=== PATIENT | male | born 1955 | race Native Hawaiian/Other Pacific Islander ===

== ENCOUNTER → 2020-03-05 13:15 | Outpatient (BNVA) | payer OTHER, SELFPAY | PROVIDERS: PCP Internal Medicine; Visit Provider Internal Medicine | DX: I82.502 Chronic embolism and thrombosis of unspecified deep veins of left lower extremity (principal); Z51.81 Encounter for therapeutic drug level monitoring; Z79.01 Long term (current) use of anticoagulants | CPT/HCPCS: 85610; 99211 ==

== ENCOUNTER 2020-03-20 10:23 | Outpatient (REF) | payer OTHER, SELFPAY ==
[2020-03-20 12:10] LABS: MANUAL DIFF FLAG NO
[2020-03-20 12:16] LABS: Basophils Percent Auto 0.8 % (0-2); Eosinophils Absolute Auto 0.2 X10*3/uL (0.0-0.4); Eosinophils Percent Auto 3.5 % (0-4); Hematocrit 33.9 % (42-52); Hemoglobin 10.3 g/dl (14.0-18.0); Lymphocytes Absolute Auto 2.4 X10*3/uL (1.2-4.9); Lymphocytes Percent Auto 50.2 % (20-40); Mean Corpuscular HGB Conc 30.4 g/dl (31.0-36.0); Mean Corpuscular Hemoglobin 26.5 pg (27.0-33.0); Mean Corpuscular Volume 87.4 fL (80-98); Monocytes Absolute Auto 0.4 X10*3/uL (0.1-1.2); Monocytes Percent Auto 8.5 % (2-11); Neutrophils Absolute Auto 1.8 X10*3/uL (2.0-8.3); Platelet Count 196 X10*3/uL (160-400); Red Blood Count 3.88 X10*6/uL (4.60-5.80); Red Cell Distribution Width 13.7 % (11.0-16.0); White Blood Count 4.8 X10*3/uL (4.8-10.8)
[2020-03-20 12:20] LABS: Glucose Urine UA NEG (NEG); Leukocyte Esterase Urine NEG (NEG); Nitrite Urine NEG (NEG); Specific Gravity - Urine 1.025 (1.005-1.025); Urine Blood NEG (NEG); Urine Ketones NEG (NEG); Urine Protein TRACE MG/DL (NEG-TRACE)
[2020-03-20 12:21] LABS: Appearance Urine CLEAR; Color Urine YELLOW
[2020-03-20 12:27] LABS: RBC Urine 0 /HPF (0); Squamous Epithelial Cell Urine TRACE /LPF; WBC Urine 0-2 /HPF (0-4)
[2020-03-20 12:36] LABS: Estimated Average Glucose 143 mg/dL; Hemoglobin A1c % 6.6 %
[2020-03-20 12:49] LABS: Alanine Aminotransferase 21 U/L (0-40); Albumin Level 3.9 g/dL (3.5-5.0); Alkaline Phosphatase 74 U/L (39-117); Anion Gap 11 (12-20); Aspartate Amino Transferase 25 U/L (5-37); Bilirubin Total 0.5 mg/dL (0.0-1.0); Blood Urea Nitrogen 38 mg/dL (9-16); Calcium 8.5 mg/dL (8.4-10.2); Carbon Dioxide 25 mmol/L (22-29); Chloride 108 mmol/L (96-108); Estimated Glomerular Filt Rate 37; Glucose Random 109 mg/dL (60-115); Sodium 139 mmol/L (135-145); Total Protein 6.8 g/dL (6.5-8.0)
[2020-03-20 12:50] LABS: Cholesterol 100 mg/dL; HDL Cholesterol 41 mg/dL; LDL Cholesterol Calculated 37 mg/dl; Triglycerides 112 mg/dL
[2020-03-20 12:55] LABS: Thyroid Stimulating Hormone 1.01 mIU/mL (0.32-4.0)
[2020-03-20 13:00] LABS: Erythrocyte Sedimentation Rate 18 MM/HR (0-15)
[2020-03-20 13:13] LABS: Folate 6.3 ng/mL (> or = 4.0); Vitamin B12 306 pg/mL (200-900)
== END 2020-03-20 10:24 | disposition home or self-care (01) ==
LOC: HO.LAB 10:23
PROVIDERS: PCP Internal Medicine; Visit Provider Internal Medicine
DX: I25.10 Atherosclerotic heart disease of native coronary artery without angina pectoris (principal); E78.00 Pure hypercholesterolemia, unspecified; I10 Essential (primary) hypertension; K21.9 Gastro-esophageal reflux disease without esophagitis; D63.8 Anemia in other chronic diseases classified elsewhere; F03.90 Unspecified dementia, unspecified severity, without behavioral disturbance, psychotic disturbance, mood disturbance, and anxiety; G47.33 Obstructive sleep apnea (adult) (pediatric); I82.409 Acute embolism and thrombosis of unspecified deep veins of unspecified lower extremity; F41.9 Anxiety disorder, unspecified; F09 Unspecified mental disorder due to known physiological condition
CPT/HCPCS: 36415; 80053; 80061; 81001; 82607; 82746; 83036; 84436; 84443; 85025; 85652

== ENCOUNTER 2020-04-09 08:35 | Outpatient (REF) | payer OTHER, SELFPAY ==
[2020-04-09 10:40] LABS: Anion Gap 11 (12-20); Blood Urea Nitrogen 28 mg/dL (9-16); Calcium 8.3 mg/dL (8.4-10.2); Carbon Dioxide 28 mmol/L (22-29); Chloride 110 mmol/L (96-108); Estimated Glomerular Filt Rate 44; Glucose Random 102 mg/dL (60-115); Potassium 4.9 mmol/l (3.3-5.1); Sodium 144 mmol/L (135-145)
== END 2020-04-09 08:36 | disposition home or self-care (01) ==
LOC: HO.LAB 08:35
PROVIDERS: PCP Internal Medicine; Visit Provider Internal Medicine
DX: N17.9 Acute kidney failure, unspecified (principal); E78.00 Pure hypercholesterolemia, unspecified; I10 Essential (primary) hypertension; I25.10 Atherosclerotic heart disease of native coronary artery without angina pectoris
CPT/HCPCS: 80048; 85610; 99211

== ENCOUNTER → 2020-05-07 09:14 | Outpatient (BNVA) | payer OTHER, SELFPAY | PROVIDERS: PCP Internal Medicine; Visit Provider Internal Medicine | DX: I82.502 Chronic embolism and thrombosis of unspecified deep veins of left lower extremity (principal); Z51.81 Encounter for therapeutic drug level monitoring; Z79.01 Long term (current) use of anticoagulants | CPT/HCPCS: 85610; 99211 ==

== ENCOUNTER → 2020-06-10 08:40 | Outpatient (BNVA) | payer OTHER, SELFPAY | PROVIDERS: PCP Internal Medicine; Visit Provider Internal Medicine | DX: I82.502 Chronic embolism and thrombosis of unspecified deep veins of left lower extremity (principal); Z79.01 Long term (current) use of anticoagulants; Z51.81 Encounter for therapeutic drug level monitoring | CPT/HCPCS: 85610; 99211 ==

== ENCOUNTER → 2020-06-29 12:56 | Outpatient (BNVA) | payer OTHER, SELFPAY | PROVIDERS: PCP Internal Medicine; Visit Provider Internal Medicine Gastroenterology | DX: Z13.89 Encounter for screening for other disorder (principal) | CPT/HCPCS: 99202 ==

== ENCOUNTER → 2020-07-08 09:11 | Outpatient (BNVA) | payer OTHER, SELFPAY | PROVIDERS: PCP Internal Medicine; Visit Provider Internal Medicine | DX: I82.501 Chronic embolism and thrombosis of unspecified deep veins of right lower extremity (principal); Z51.81 Encounter for therapeutic drug level monitoring; Z79.01 Long term (current) use of anticoagulants | CPT/HCPCS: 85610; 99211 ==

== ENCOUNTER → 2020-07-09 11:14 | Outpatient (BNVA) | payer OTHER, SELFPAY | PROVIDERS: PCP Internal Medicine; Visit Provider Nurse Practitioner Family | DX: I25.10 Atherosclerotic heart disease of native coronary artery without angina pectoris (principal); I10 Essential (primary) hypertension; R07.9 Chest pain, unspecified; I73.9 Peripheral vascular disease, unspecified; M79.606 Pain in leg, unspecified; M79.89 Other specified soft tissue disorders; E78.00 Pure hypercholesterolemia, unspecified; R00.1 Bradycardia, unspecified; Z86.718 Personal history of other venous thrombosis and embolism; I25.2 Old myocardial infarction; Z79.01 Long term (current) use of anticoagulants; Z79.899 Other long term (current) drug therapy | CPT/HCPCS: 93005; 99202 ==

== ENCOUNTER → 2020-07-23 09:07 | Outpatient (REF) | payer OTHER, SELFPAY ==
--- NOTE | ~2020-07-23 | NM_ITS ---
Lexiscan Myocardial perfusion study Indication: Coronary artery disease, assess for ischemia Technique: The patient was brought in for a Lexiscan perfusion study on 07/23/2020 and was injected 0.4 mg of Lexiscan intravenously. Within a minute of this injection 40 mCi of sestamibi was given intravenously. Images were obtained using the SPECT gamma camera interlaced with the gating device. Images were obtained in supine position. Resting perfusion study was performed on 07/27/2020. Patient was administered 40 mCi of sestamibi intravenously at rest. Images were then obtained in supine position. Total DLP 130mGy-cm. Images were processed with the software and compared side to side in short axis, horizontal long axis and vertical long axis views. Findings: Raw acquisition was reviewed. The stress perfusion study showed diminished tracer uptake along the inferior wall. However, with CT attenuation correction, this normalizes completely and hence suggestive of diaphragmatic attenuation artifact. The gated study shows normal LV systolic function with calculated LVEF of 72%. LV cavity is normal in size. The gated study shows normal wall thickening and contraction of segments. Resting study shows diminished tracer uptake along the inferior wall that improves with CT attenuation correction. Gating at rest reveals normal wall motion with ejection fraction at 64%. The findings are consistent with no reversible defects. Fixed defect along the inferior wall likely from diaphragmatic attenuation artifact. NM/NM chasidy perf SPECT rest & str Impression: 1. Myocardial perfusion imaging study shows no evidence of ischemia. Fixed defect along the inferior wall suspected to be from diaphragmatic artifact. 2. Gated LVEF is 72% during stress; 71% during rest. 3. Transient ischemic dilatation not present. EKG component of the test reported separately.
--- NOTE | 2020-07-23 09:11 | CA_ITS ---
Acquisition Time: 2020-07-23 10:09:59 Total Exercise Time: 00:02:00 Test Indications: CP Medications: SEE CHART Protocol: LEXISCAN Max HR: 118 BPM 75% of Pred: 156 BPM Max BP: 124/084 mmHG Max Work Load: 1.0 METS Pharmacological stress test using Lexiscan while lying and moving his L arm. Pt. is very sleapy spoke with his daughter and she states that this is his norm. Pt has a hx of dementia and parkinson's took clonazepam this morning. Pt denies any anginal sx. EKG with no arrhythmias, non-diagnostic for ischemia. Nuclear images to follow. Normotensive response to rest. Test reviewed with Dr. Johns. Referred By: Bhavya Roche Overread By: Juan Alberto Armstrong
== END ==
LOC: HO.CARD 09:07
PROVIDERS: Visit Provider Nurse Practitioner Family
DX: R07.9 Chest pain, unspecified (principal); I25.10 Atherosclerotic heart disease of native coronary artery without angina pectoris
CPT/HCPCS: 78452; 93017; A9500; J0280; J2785

== ENCOUNTER 2020-07-27 09:00 | Outpatient (REF) | payer OTHER, SELFPAY ==
--- NOTE | ~2020-07-27 | US_ITS ---
EXAMINATION: RIGHT and LEFT LOWER EXTREMITY VENOUS ULTRASOUND (Reflux Exam) CLINICAL INDICATION: leg pain and varicose veins. COMPARISON: Previous right lower extremity ultrasound April 2018 TECHNIQUE: Color flow triplex imaging and compression Doppler was performed to evaluate both the deep and the superficial systems bilaterally. To evaluate the superficial system, the examination was performed in the upright position. Color-flow Doppler ultrasound and compression ultrasound were utilized. In addition, maneuvers were utilized to demonstrate reflux. FINDINGS: 1. DEEP VENOUS ULTRASOUND OF THE RIGHT LOWER EXTREMITY: Respiratory variation, normal compression and augmented flow are noted in the right common femoral vein as well as the right popliteal vein and there is no evidence of acute deep venous thrombosis at these locations. There is some echogenic material and wall thickening and limited compression of the right popliteal vein questionable for changes related to old DVT. There is a 0.8 seconds reflux in the right popliteal vein. There is no evidence of Evidence of reflux in the deep system in either the common femoral vein or the mid femoral vein. There is no evidence of a Romero's cyst. 2. SUPERFICIAL ULTRASOUND WITH DOPPLER OF RIGHT LOWER EXTREMITY: The right great saphenous vein at the saphenofemoral junction measures 7 mm, at the mid thigh 3 mm, lquka-jdc-zose 4 mm, irvzz-vab-juju 4 mm, at mid calf 3 mm and at the ankle measures 3 mm. There is no reflux demonstrated in the right great saphenous vein. The right small saphenous vein measures 2 mm and demonstrates 0.4 seconds reflux at the saphenofemoral popliteal junction. There is a electronics repair technician in the calf that measures 1 mm and does not demonstrate reflux. There are varicosities in the calf measuring 2 to 3 mm the do not demonstrate reflux. 3. DEEP VENOUS ULTRASOUND OF THE LEFT LOWER EXTREMITY: Respiratory variation, normal compression and augmented flow are noted in the left common femoral vein as well as the left popliteal vein and there is no evidence of deep venous thrombosis at these locations. There is no evidence of reflux in the deep system in either the common femoral vein or the popliteal vein. . There is no evidence of a Romero's cyst. 4. SUPERFICIAL ULTRASOUND WITH DOPPLER OF LEFT LOWER EXTREMITY: Left great saphenous vein at the saphenofemoral junction measures 6 mm, at the mid thigh 3 mm, yktwe-fzy-lzyg 3 mm, huoli-ecd-laef 3 mm, at mid calf 3 mm and at the ankle measures 3 mm. There is no reflux demonstrated in the left great saphenous vein. The left small saphenous vein measures 3-5 mm and shows no reflux. There is a varicose vein measuring 3 mm in the proximal calf that does not demonstrate reflux. US/US venous duplex LE BI IMPRESSION: 1. No evidence of acute DVT. Probable changes from old DVT in the right popliteal vein and 0.8 second reflux. 2. Right lesser saphenous vein at the saphenofemoral junction measuring 0.4 seconds.
--- NOTE | ~2020-07-27 | US_ITS ---
EXAMINATION: COLOR-FLOW DUPLEX IMAGING OF THE BILATERAL LOWER EXTREMITY ARTERIAL SYSTEM. VELOCITY MEASUREMENTS THROUGHOUT THE FEMORAL ARTERIES WITH ANKLE-BRACHIAL PERIPHERAL ARTERIAL TESTING. CLINICAL INFORMATION: This is a 65-year-old male with bilateral peripheral vascular disease. COMPARISON: None. Interventional Radiologist: Jared Stiles M.D., F.S.I.R., F.A.C.R. RIGHT FEMORAL RUNOFF VELOCITIES: The right common femoral artery measures 109 cm/s and triphasic. The right profunda femoral artery is 56 cm/s and is triphasic. Right proximal superficial femoral artery measures 77 cm/s and triphasic. Mid superficial femoral artery is 69 cm/s and triphasic. Distal right superficial femoral artery measures 53 cm/s and is triphasic. Right popliteal velocity measures 42 cm/s and is triphasic. The posterior tibial artery velocity measures 98 cm/s and was triphasic. LEFT FEMORAL RUNOFF VELOCITIES: The left common femoral artery measures 106 cm/s and triphasic. The left profunda femoral artery is 48 cm/s and is triphasic. Left proximal superficial femoral artery measures 76 cm/s and triphasic. Mid superficial femoral artery is 53 cm/s and triphasic. Distal left superficial femoral artery measures 48 cm/s and is triphasic. Left popliteal velocity measures 45 cm/s and is triphasic. The posterior tibial artery velocity measures 74 cm/s and was triphasic. US/US arterial duplex LE BI IMPRESSION: 1. Normal peripheral arterial testing without evidence of hemodynamically significant stenosis.
== END 2020-07-27 09:01 | disposition home or self-care (01) ==
LOC: HO.US 09:00
PROVIDERS: Visit Provider Nurse Practitioner Family
DX: M79.609 Pain in unspecified limb (principal); I73.9 Peripheral vascular disease, unspecified; M79.89 Other specified soft tissue disorders
CPT/HCPCS: 93925; 93970

== ENCOUNTER → 2020-08-05 09:11 | Outpatient (BNVA) | payer OTHER, SELFPAY | PROVIDERS: PCP Internal Medicine; Visit Provider Internal Medicine | DX: I82.409 Acute embolism and thrombosis of unspecified deep veins of unspecified lower extremity (principal); Z51.81 Encounter for therapeutic drug level monitoring; Z79.01 Long term (current) use of anticoagulants | CPT/HCPCS: 85610; 99211 ==

== ENCOUNTER → 2020-08-19 08:29 | Outpatient (REF) | payer OTHER, SELFPAY ==
--- NOTE | 2020-08-19 08:31 | CA_ITS ---
Transthoracic Echocardiogram Patient (Last, First, Middle): Lokesh Ravi E Gender: Male Date of : 1955 Age: 65 Procedure Date: 08/19/2020 Procedure Type: Transthoracic Echocardiogram Location: OP Height: 175.26 cm Weight: 116.12 kg BSA: 2.29 m2 Heart Rate: bpm BP: 144 / 77 mmHg Aviation Program Manager: UMER Referring MD: Bhavya Roche ERP PMLuis Daniel Community Artist: Arthur Travis MD Symptoms: I25.10 - Atherosclerotic heart disease of [place] coronary artery without angina pectoris Study Quality: Good ECG Rhythm: Sinus Conclusions: - 1. Normal LV systolic and diastolic function 2. Normal cardiac valvular Doppler 3. Normal RV systolic pressure 4. No pericardial effusion Findings Left Ventricle Normal left ventricular size, thickness, and systolic function. The visually estimated ejection fraction is between 60-65%. Diastolic function is normal for age. Right Ventricle Normal right ventricular cavity size and systolic function. Atria Both atria are normal in size. There is no evidence of interatrial shunt. Aortic Valve The aortic valve structure and function is likely normal. There is no aortic valve stenosis. There is no aortic valve regurgitation. Mitral Valve Normal mitral valve structure and function. There is trace mitral valve regurgitation. There is no mitral valve stenosis. Pulmonic Valve The pulmonic valve is likely normal. There is trace pulmonic valve regurgitation. Tricuspid Valve Normal tricuspid valve structure. There is mild tricuspid valve regurgitation. The right ventricular systolic pressure is normal. The right ventricular systolic pressure is 34 mmHg. Normal right atrial pressure. There is no evidence of pulmonary hypertension. Great Vessels All visible segments of the aorta are normal in size. The pulmonary artery was not well visualized. Venous The inferior vena cava is normal in size and collapses greater than 50% with inspiration. Pericardium/Pleural There is no evidence of pericardial effusion. Prior Study Comparison No prior study available for comparison. Measurements 2D Linear Measurements IVSd: 1.07 0.6-0.9/0.6-1.0 cm LVIDd: 5.47 3.9-5.3/4.2-5.9 cm LVIDd Index: 2.39 2.4-3.2/2.2-3.1 cm/m2 LVIDs: 3.18 2.0-3.6 cm LVPWd: 1.02 0.7-1.1 cm Ao Root: 3.00 2.1-3.5 cm LA Diam: 4.40 2.7-3.8/3.0-4.0 cm LAIDs Index: 1.92 1.5-2.3 cm/m2 LV Mass: 279.15 67-162/88-224 g LV Mass Index: 121.90 43-95/49-115 g/m2 LVOT Diam: 2.20 3.0+(-)1.3 cm 2D Systolic Function EF 4C: 64.50 >55% EF 2C: 60.80 >55% EF BiP: 62.80 >55% Mitral Valve MV Pk E: 0.96 MV PK A: 0.67 MV Decel Time: 171.00 E/A: 1.40 E'Lateral: 13.10 E'Medial: 7.72 E/E' Med: 12.40 E/E' Lat: 7.30 PHT: 50.00 MVA PHT: 4.40 Decel [place]: 5.58 Aortic Valve AoV Pk Aman: 1.76 AoV Pk Grad: 12.00 LVOT LVOT Pk Aman: 1.17 LVOT Mn Aman: 0.76 LVOT VTI: 0.25 LVOT Pk Grad: 5.00 LVOT Mn Grad: 3.00 LVOT Diam: 2.20 LVOT Area: 3.80 Diastolic Function MV Pk E: 0.96 MV Pk A: 0.67 E/A: 1.40 E'Medial: 7.72 E/E' Med: 12.40 E' Laterial: 13.10 E/E' Lat: 7.30 Tricuspid Valve TR Pk Aman: 2.77 TR Pk Grad: 31.00 RA Press: 3.00 RVSP: 34.00 Great Vessels Aorta Ao Root-2D: 3.00 2.0-3.7 cm Ao Asc: 3.50 2.1-3.4 cm Updated in Other Vendor System with Status of Final Arthur Travis MD electronically signed on 08/19/2020 6:16:06 PM with status of Final
== END ==
LOC: HO.CARD 08:29
PROVIDERS: Visit Provider Nurse Practitioner Family
DX: R07.9 Chest pain, unspecified (principal); I25.10 Atherosclerotic heart disease of native coronary artery without angina pectoris
CPT/HCPCS: 93306

== ENCOUNTER → 2020-08-25 12:28 | Outpatient (BNVA) | payer OTHER, SELFPAY | PROVIDERS: PCP Internal Medicine; Visit Provider Nurse Practitioner Family | DX: Z01.810 Encounter for preprocedural cardiovascular examination (principal); R07.9 Chest pain, unspecified; I25.10 Atherosclerotic heart disease of native coronary artery without angina pectoris; I73.9 Peripheral vascular disease, unspecified; I10 Essential (primary) hypertension; E78.00 Pure hypercholesterolemia, unspecified; R00.1 Bradycardia, unspecified; Z79.01 Long term (current) use of anticoagulants; Z86.718 Personal history of other venous thrombosis and embolism; Z79.899 Other long term (current) drug therapy | CPT/HCPCS: 99212 ==

== ENCOUNTER 2020-12-14 10:32 | Day surgery (SDC) | payer OTHER, SELFPAY ==
[2020-11-13 08:38] VITALS: BMI 37.0
--- NOTE | 2020-11-16 10:48 | HO.ANESPROP2 ---
HPI - Anesthesia Eval Consult details Narrative: 65yo M for Upper Endoscopy and Colonoscopy Cardiac cleared at low to intermed Coumadin for h/o DVT PMFSH Active Problems Active Problems: All Active Problems (Updated 11/13/20 @ 08:36 by Bina Mead) Current use of anticoagulant therapy (Acute) Acute kidney injury (Acute) Anemia in chronic kidney disease (Acute) History of DVT (deep vein thrombosis) (Acute) Constipation (Acute) Peripheral vascular disease (Acute) Leg pain (Acute) Leg swelling (Acute) Exertional chest pain (Acute) Sinus bradycardia (Acute) Preop cardiovascular exam (Acute) Type 2 diabetes mellitus with hyperglycemia (Acute) Confusion (Acute) Rectal bleeding (Acute) Anticoagulant long-term use (Acute) Hypertension (Acute) Hypercholesterolemia (Acute) Coronary artery disease (Acute) Past Medical History Medical History (Updated 11/13/20 @ 08:36 by Bina Mead) Anemia Anticoagulant long-term use Cognitive impairment Confusion Coronary artery disease History of renal calculi Hypercholesterolemia Hypertension Lumbar spondylosis Obstructive sleep apnea Polysubstance abuse Rectal bleeding Right leg DVT Family History Family History Father No problems noted. Mother Hypertension Stroke Diabetes Family/Other No problems noted. Surgical History Surgical History (Updated 11/13/20 @ 08:35 by Bina Mead) H/O colonoscopy History of cardiac cath (~06/2009) History of hand surgery Hx of cystoscopy Hx of lithotripsy Social History Social History (Updated 09/24/20 @ 13:13 by Krista Espinal) Alcohol intake: former Patient Tobacco Use Status: Former Tobacco user Substance Use Type: Heroin Advance Directives Information Provided: No Meds Allergies Allergy/AdvReac Type Severity Reaction Status Date / Time lisinopril AdvReac Intermediate high Verified 07/08/20 09:12 creatinine Home Medications Medication Instructions Recorded Confirmed Last Taken Type dextromethorphan-guaifenesin 10 10 ml PO Q4-6H PRN 04/01/20 11/13/20 Unknown History mg-100 mg/5 mL oral liquid clonidine HCl 0.1 mg tablet 0.1 mg PO BID 08/05/20 11/13/20 Unknown History lisinopril 40 mg tablet 40 mg PO DAILY 08/05/20 11/13/20 Unknown History Exam Exam Date and Time: November 16, 2020 1048 Height,Weight and Vital Signs: Height 5 ft 9 in Weight 114 kg Pertinent Lab Results Pertinent Lab Results: Laboratory Tests 09/24/20 09/24/20 13:32 13:32 WBC 4.4 L Hgb 12.2 L Hct 40.1 L Plt Count 189 Sodium 143 Potassium 4.7 Chloride 112 H Carbon Dioxide 25 BUN 18 H Creatinine 1.31 Narrative Narrative: Per cardiac clearance: EKG last visit shows sinus bradycardia with no acute ST or T-wave abnormalities, rate 45.His Metoprolol dose was reduced. Symptoms seem like stable angina. He had a nuclear stress test on 07/23/20 showing no ischemia, fixed inferior defect, likely diaphragm attenuation. Echo 08/19/20 shows EF 60-65%, no valve abn, no regional WMA. Assessment and Plan Assessment Anesthesia Assessment: Chart Reviewed
--- NOTE | 2020-12-11 08:41 | HO.ANESPROP2 ---
HPI - Anesthesia Eval Consult details Narrative: 65yo M for Upper Endoscopy and Colonoscopy Cardiac cleared at low to intermed Coumadin for h/o DVT PMFSH Active Problems Active Problems: All Active Problems (Updated 11/13/20 @ 08:36 by Bina Mead) Current use of anticoagulant therapy (Acute) Acute kidney injury (Acute) Anemia in chronic kidney disease (Acute) History of DVT (deep vein thrombosis) (Acute) Constipation (Acute) Peripheral vascular disease (Acute) Leg pain (Acute) Leg swelling (Acute) Exertional chest pain (Acute) Sinus bradycardia (Acute) Preop cardiovascular exam (Acute) Type 2 diabetes mellitus with hyperglycemia (Acute) Confusion (Acute) Rectal bleeding (Acute) Anticoagulant long-term use (Acute) Hypertension (Acute) Hypercholesterolemia (Acute) Coronary artery disease (Acute) Past Medical History Medical History Anemia Anticoagulant long-term use Cognitive impairment Confusion Coronary artery disease History of renal calculi Hypercholesterolemia Hypertension Lumbar spondylosis Obstructive sleep apnea Polysubstance abuse Rectal bleeding Right leg DVT Family History Family History Father No problems noted. Mother Hypertension Stroke Diabetes Family/Other No problems noted. Surgical History Surgical History H/O colonoscopy History of cardiac cath (~06/2009) History of hand surgery Hx of cystoscopy Hx of lithotripsy Social History Social History Alcohol intake: former Patient Tobacco Use Status: Former Tobacco user Substance Use Type: Heroin Advance Directives Information Provided: No Meds Allergies Allergy/AdvReac Type Severity Reaction Status Date / Time lisinopril AdvReac Intermediate high Verified 07/08/20 09:12 creatinine Home Medications Medication Instructions Recorded Confirmed Last Taken Type dextromethorphan-guaifenesin 10 10 ml PO Q4-6H PRN 04/01/20 11/13/20 Unknown History mg-100 mg/5 mL oral liquid clonidine HCl 0.1 mg tablet 0.1 mg PO BID 08/05/20 11/13/20 12/14/20 07:30 History lisinopril 40 mg tablet 40 mg PO DAILY 08/05/20 11/13/20 Unknown History Exam Exam Date and Time: December 11, 2020 0841 Height,Weight and Vital Signs: Height 5 ft 9 in Weight 114 kg Narrative Narrative: Per cardiac clearance: EKG last visit shows sinus bradycardia with no acute ST or T-wave abnormalities, rate 45. His Metoprolol dose was reduced. Symptoms seem like stable angina. He had a nuclear stress test on 07/23/20 showing no ischemia, fixed inferior defect, likely diaphragm attenuation. Echo 08/19/20 shows EF 60-65%, no valve abn, no regional WMA. Assessment and Plan Assessment Anesthesia Assessment: Chart Reviewed
--- NOTE | 2020-12-14 10:49 | PC.NURSE ---
called lab for draw and no answer
[2020-12-14 10:53] VITALS: BP 140/76; PULSE 83; RESP 16; TEMP 37.2; O2SAT 92
--- NOTE | 2020-12-14 11:33 | PC.NURSE ---
P[employer]TER USED FOR FLEET ENEMA INSTRUCIOTNS. LAYING ON LEFT SIDE RAFAELA PROCEDURE WELL. OUTPUT WAS BRITTON, NO SOLIDS UNABLE TO SEE THROUGH.
--- NOTE | 2020-12-14 11:43 | P.CONAN_ITS ---
[facility] Active Problems Active Problems: All Active Problems (Updated 11/13/20 @ 08:36 by Bina sharma) Current use of anticoagulant therapy (Acute) Acute kidney injury (Acute) Anemia in chronic kidney disease (Acute) History of DVT (deep vein thrombosis) (Acute) Constipation (Acute) Peripheral vascular disease (Acute) Leg pain (Acute) Leg swelling (Acute) Exertional chest pain (Acute) Sinus bradycardia (Acute) Preop cardiovascular exam (Acute) Type 2 diabetes mellitus with hyperglycemia (Acute) Confusion (Acute) Rectal bleeding (Acute) Anticoagulant long-term use (Acute) Hypertension (Acute) Hypercholesterolemia (Acute) Coronary artery disease (Acute) Past Medical History Medical History Anemia Anticoagulant long-term use Cognitive impairment Confusion Coronary artery disease History of renal calculi Hypercholesterolemia Hypertension Lumbar spondylosis Obstructive sleep apnea Polysubstance abuse Rectal bleeding Right leg DVT Family History Family History Father No problems noted. Mother Hypertension Stroke Diabetes Family/Other No problems noted. Surgical History Surgical History H/O colonoscopy History of cardiac cath (~06/2009) History of hand surgery Hx of cystoscopy Hx of lithotripsy Social History Social History Alcohol intake: former Patient Tobacco Use Status: Former Tobacco user Substance Use Type: Heroin Advance Directives Information Provided: No Meds Allergies Allergy/AdvReac Type Severity Reaction Status Date / Time lisinopril AdvReac Intermediate high Verified 07/08/20 09:12 creatinine Active Medications: Current Medications Generic Name Dose Route Start Last Admin Trade Name Freq PRN Reason Stop Dose Admin Lactated Ringer's 1,000 mls @ 100 mls/hr 12/14/20 10:30 Lr IVCONT .Q10H [facility] Home Medications Medication Instructions Recorded Confirmed Last Taken Type dextromethorphan-guaifenesin 10 10 ml PO Q4-6H PRN 04/01/20 11/13/20 Unknown History mg-100 mg/5 mL oral liquid clonidine HCl 0.1 mg tablet 0.1 mg PO BID 08/05/20 11/13/2021 07:30 History lisinopril 40 mg tablet 40 mg PO DAILY 08/05/20 11/13/20 Unknown History Exam Exam Date and Time: December 14, 2020 1143 Height,Weight and Vital Signs: Height 5 ft 9 in Weight 114 kg Last Vital Signs Temp 99.0 F 12/14/20 10:53 Pulse 83 12/14/20 10:53 Resp 16 12/14/20 10:53 BP 140/76 H 12/14/20 10:53 Pulse Ox 92 12/14/20 10:53 Airway Mallampati Class: IV TM Dist: >3cm Neck ROM: Full Denture: Upper Heart: RRR Lungs: CTA
[2020-12-14 11:47] LABS: Glucose, Whole Blood 97 mg/dL (60-115)
[2020-12-14] MEDS: Sodium Phosphate,Mono-Dibasic 133 ML ENEMA 266 ML PR (12:00)
--- NOTE | 2020-12-14 12:02 | P.BOP_ITS ---
Brief Operative Note Date of Service: 12/14/20 Pre-op diagnosis: Anemia, rectal bleeding Post-op diagnosis: other (GERD, hiatal hernia, polyp hiatal hernia sac, gastritis, gastric nodules, colon polyps, diverticulosis, hemorrhoids) Procedure: FLEXIBLE TRANSORAL UPPER GASTROINTESTINAL ENDOSCOPY AND COLONOSCOPY PROCEDURE NOTE UPPER ENDOSCOPY Consent: Indications for the procedure and potential complications of bleeding, perforation, reaction to medications and missed diagnosis were discussed with the patient and informed consent was obtained. Instrument: Olympus GIF H 190 mid size upper endoscope Monitoring: Vital signs and clinical assessment, continuous EKG monitoring, Pulse oximetry, Carbon Dioxide monitoring and blood pressure monitoring were done throughout the procedure. Procedure: The patient was placed in the left lateral decubitis position and pre-procedure medications were administered and a bite block was placed. The endoscope was inserted into the mouth and advanced under direct vision to the third part of duodenum. A careful inspection was made as the upper endoscope was withdrawn including a retroflexed examination of the proximal stomach; Findings and interventions are described below. Findings: Larynx: Normal Esophagus: GE junction at 35 cms, hiatl hernia 35 to 40 cms. A 2 cms hemorrhagic appearing polyp with surface ulcerations in hiatal hernia sac removed piece meal with a hot snare and retrieved with a Fenton net. No esophagitis. Stomach: Moderate diffuse gastric erythema. Biopsies were obtained. Multiple 8- 12 mm benign appearing nodules in the gastric antrum - some with central ulcerations - biopsied. Grade 4 flap valve on retroflexed examination of the cardia. Duodenum: Normal bulb and descending duodenum Intervention: Biopsies as noted above COLONOSCOPY PROCEDURE NOTE Consent: Indications for the procedure and potential complications of bleeding, perforation, reaction to medications and missed diagnosis were discussed with the patient and informed consent was obtained. Instrument: Olympus CF [id number] L variable stiffness adult colonoscope Monitoring: Vital signs and clinical assessment, intermittent blood pressure monitoring, continuous EKG monitoring, Pulse oximetry and Carbon Dioxide monitoring were done throughout the procedure. Colon withdrawl time was 27 minutes. Procedure: The patient was placed in the left lateral decubitis position and pre-procedure medications were administered. After a digital rectal examination of the ano-rectum, the video colonoscope was inserted into the rectum and advanced through the colon to the cecum. The colonoscope was slowly withdrawn in a retrograde panoramic fashion and the colon mucosa was carefully examined including a retroflexed view of the rectum. Findings and interventions are described below. Procedure Difficulty: : Colon was long and tortuous and there was spasm and loop formation. LLQ pressure was applied to intubate the cecum Findings: Terminal Ileum: Not evaluated Cecum: Normal Ascending Colon: A 12-15 mm sessile polyp removed with a hot snare Transverse Colon: A 10 mm sessile polyp removed with a cold snare Descending Colon: Moderate diverticulosis Sigmoid Colon: Moderate diverticulosis Rectum: Normal Ano-rectum: Moderate internal hemorrhoids Colon preparation: Fair despite copious irrigation Impression and Post Procedure Diagnosis: Endoscopy Findings: ESOPHAGUS: GE junction at 35 cms, hiatl hernia 35 to 40 cms. A 2 cms hemorrhagic appearing polyp with surface ulcerations in hiatal hernia sac removed piece meal with a hot snare and retrieved with a Fenton net. No esophagitis. STOMACH: Moderate diffuse gastric erythema. Biopsies were obtained. Multiple 8- 12 mm benign appearing nodules in the gastric antrum - some with central ulcerations - biopsied. Grade 4 flap valve on retroflexed examination of the cardia. Colonoscopy Findings: Two medium sized polyps removed Moderate diverticulosis seen in the left colon Moderate hemorrhoids on retroflexed exam. Anemia may be related to slow GI blood loss from large polyp in hiatal hernia sac. Plan: Await pathology results Patient has an appointment on 01/01/21 in the GI Clinic with Patti Jerry FNP- BC . Repeat Colonoscopy interval based on path results - in 1-2 years due to fair prep (adult colonoscope for future colonoscopies). Above findings were reviewed with the patient and GERD and colon polyps handouts were given in the discharge area Surgeon: Gage Jimenez MD Anesthesia: MAC (Dr Okeefe & Dr Diego) Was an Grinding Supervisor used for this Procedure?: No Grinding Supervisor: Lei Hinojosa Estimated blood loss (mL): 0 Pathology: other (A- GASTRIC NODULES B- GASTRIC ANTRUM BXS R/O H. PYLORI C- HIATAL HERNIA POLYP D- ASCENDING COLON POLYP E- TRANSVERSE COLON POLYP) Condition: stable Disposition: PACU
--- NOTE | 2020-12-14 12:04 | PC.NURSE ---
PATIENT HAD A SECOND FLEET ENEMA PER MD COOK. RAFAELA PROCEDURE WELL.
--- NOTE | 2020-12-14 12:04 | MHC.SHP ---
Pre-Procedural Eval Section A Date of Service: 12/14/20 The patient is an INPATIENT: No The History & Physical has been completed within 30 days and I have reviewed it.: No Section B Chief Complaint: Rectal Bleeding Details of Present Illness: Anemia, rectal bleeding Relevant Family History (Specify if Yes): No Relevant Social History: None Present Medications: see Short Stay Collaborative assessment Medical History: Significant History (Anemia Anticoagulant long-term use Cognitive impairment Confusion Coronary artery disease History of renal calculi Hypercholesterolemia Hypertension Lumbar spondylosis Obstructive sleep apnea Polysubstance abuse Rectal bleeding Right leg DVT) History of Previous Operations: Relevant previous surgery/procedure and date(s) (History of hand surgery) Allergies: Allergies Allergy/AdvReac Type Severity Reaction Status Date / Time lisinopril AdvReac Intermediate high Verified 07/08/20 09:12 creatinine Review of Systems Sugical H&P ROS: Negative: Constitution, Cardiovascular and Respiratory and Yes, Specify: Gastrointestinal (rectal bleeding) Exam Surgical H&P Exam: Normal: Heart, Normal: Lungs, Normal: Extremities and Normal: Abdomen Plan Diagnosis/Plan: Unchanged I have reviewed the history and physical and performed a pertinent physical examination on my patient. No changes have occurred unless specified.
[2020-12-14 12:09] LABS: INTERNATIONAL NORM RATIO 1.1 (0.9-1.1); Prothrombin Time 12.1 SEC (9.9-13.0)
[2020-12-14] MEDS: Lactated Ringers 1,000 ML 100 ML IVCONT (12:13)
--- NOTE | 2020-12-14 12:13 | PC.NURSE ---
SECOND ENEMA GIVEN AND THE OUTPUT IS STILL DARK YELLOW AND UNABLE TO SEE THROUGH. SMALL PIECES OF FECES BUT NO BROWN NOTED.
--- NOTE | 2020-12-14 12:15 | PC.NURSE ---
MD COOK AWARE OF PATIENTS OUTPUT COLOR.
[2020-12-14 14:15] VITALS: BP 127/68; PULSE 69; RESP 16; TEMP 37.1; O2SAT 94
[2020-12-14 14:30] VITALS: BP 135/71; PULSE 62; RESP 16; TEMP 37.1; O2SAT 95
--- NOTE | 2020-12-14 17:29 | W.PM.OPN ---
Operative Note Operative Note Date of Service: 12/14/20 Narrative: Pre-op diagnosis: Anemia, rectal bleeding Post-op diagnosis: other (GERD, hiatal hernia, polyp hiatal hernia sac, gastritis, gastric nodules, colon polyps, diverticulosis, hemorrhoids) Procedure: FLEXIBLE TRANSORAL UPPER GASTROINTESTINAL ENDOSCOPY AND COLONOSCOPY PROCEDURE NOTE UPPER ENDOSCOPY Consent: Indications for the procedure and potential complications of bleeding, perforation, reaction to medications and missed diagnosis were discussed with the patient and informed consent was obtained. Instrument: Olympus GIF H 190 mid size upper endoscope Monitoring: Vital signs and clinical assessment, continuous EKG monitoring, Pulse oximetry, Carbon Dioxide monitoring and blood pressure monitoring were done throughout the procedure. Procedure: The patient was placed in the left lateral decubitis position and pre-procedure medications were administered and a bite block was placed. The endoscope was inserted into the mouth and advanced under direct vision to the third part of duodenum. A careful inspection was made as the upper endoscope was withdrawn including a retroflexed examination of the proximal stomach; Findings and interventions are described below. Findings: Larynx: Normal Esophagus: GE junction at 35 cms, hiatl hernia 35 to 40 cms. A 2 cms hemorrhagic appearing polyp with surface ulcerations in hiatal hernia sac removed piece meal with a hot snare and retrieved with a Fenton net. No esophagitis. Stomach: Moderate diffuse gastric erythema. Biopsies were obtained. Multiple 8-12 mm benign appearing nodules in the gastric antrum - some with central ulcerations - biopsied. Grade 4 flap valve on retroflexed examination of the cardia. Duodenum: Normal bulb and descending duodenum Intervention: Biopsies as noted above COLONOSCOPY PROCEDURE NOTE Consent: Indications for the procedure and potential complications of bleeding, perforation, reaction to medications and missed diagnosis were discussed with the patient and informed consent was obtained. Instrument: Olympus CF [id number] L variable stiffness adult colonoscope Monitoring: Vital signs and clinical assessment, intermittent blood pressure monitoring, continuous EKG monitoring, Pulse oximetry and Carbon Dioxide monitoring were done throughout the procedure. Colon withdrawl time was 27 minutes. Procedure: The patient was placed in the left lateral decubitis position and pre-procedure medications were administered. After a digital rectal examination of the ano-rectum, the video colonoscope was inserted into the rectum and advanced through the colon to the cecum. The colonoscope was slowly withdrawn in a retrograde panoramic fashion and the colon mucosa was carefully examined including a retroflexed view of the rectum. Findings and interventions are described below. Procedure Difficulty: : Colon was long and tortuous and there was spasm and loop formation. LLQ pressure was applied to intubate the cecum Findings: Terminal Ileum: Not evaluated Cecum: Normal Ascending Colon: A 12-15 mm sessile polyp removed with a hot snare Transverse Colon: A 10 mm sessile polyp removed with a cold snare Descending Colon: Moderate diverticulosis Sigmoid Colon: Moderate diverticulosis Rectum: Normal Ano-rectum: Moderate internal hemorrhoids Colon preparation: Fair despite copious irrigation Impression and Post Procedure Diagnosis: Endoscopy Findings: ESOPHAGUS: GE junction at 35 cms, hiatl hernia 35 to 40 cms. A 2 cms hemorrhagic appearing polyp with surface ulcerations in hiatal hernia sac removed piece meal with a hot snare and retrieved with a Fenton net. No esophagitis. STOMACH: Moderate diffuse gastric erythema. Biopsies were obtained. Multiple 8-12 mm benign appearing nodules in the gastric antrum - some with central ulcerations - biopsied. Grade 4 flap valve on retroflexed examination of the cardia. Colonoscopy Findings: Two medium sized polyps removed Moderate diverticulosis seen in the left colon Moderate hemorrhoids on retroflexed exam. Anemia may be related to slow GI blood loss from large polyp in hiatal hernia sac. Plan: Await pathology results Patient has an appointment on 01/01/21 in the [facility] with Patti Jerry FNP-BC . Repeat Colonoscopy interval based on path results - in 1-2 years due to fair prep (adult colonoscope for future colonoscopies). Above findings were reviewed with the patient and GERD and colon polyps handouts were given in the discharge area Surgeon: Gage Jimenez MD Anesthesia: MAC (Dr Okeefe & Dr Diego) Was an Territory Account Manager used for this Procedure?: No Territory Account Manager: Lei Hinojosa Estimated blood loss (mL): 0 Pathology: other (A- GASTRIC NODULES B- GASTRIC ANTRUM BXS R/O H. PYLORI C- HIATAL HERNIA POLYP D- ASCENDING COLON POLYP E- TRANSVERSE COLON POLYP) Condition: stable Disposition: PACU
== END 2020-12-14 15:10 | disposition home or self-care (01) ==
PROVIDERS: Nurse Practitioner; PCP Internal Medicine; Visit Provider Internal Medicine Gastroenterology
PROC: (CPT 45385; principal; 2020-12-14 12:20)
DX: K62.5 Hemorrhage of anus and rectum (principal); D12.2 Benign neoplasm of ascending colon; D12.3 Benign neoplasm of transverse colon; K57.30 Diverticulosis of large intestine without perforation or abscess without bleeding; K64.8 Other hemorrhoids; D64.9 Anemia, unspecified; K21.9 Gastro-esophageal reflux disease without esophagitis; K31.7 Polyp of stomach and duodenum; K22.8 Other specified diseases of esophagus; K44.9 Diaphragmatic hernia without obstruction or gangrene; K29.50 Unspecified chronic gastritis without bleeding; K31.89 Other diseases of stomach and duodenum; I10 Essential (primary) hypertension; G47.33 Obstructive sleep apnea (adult) (pediatric); I25.10 Atherosclerotic heart disease of native coronary artery without angina pectoris; Z79.01 Long term (current) use of anticoagulants; Z79.899 Other long term (current) drug therapy; Z86.718 Personal history of other venous thrombosis and embolism; F11.10 Opioid abuse, uncomplicated; Z87.891 Personal history of nicotine dependence
CPT/HCPCS: 45385; 43251; 43239; 36415; 82947; 85610; 88305; 88342

== ENCOUNTER → 2021-01-01 09:32 | Outpatient (BNVA) | payer OTHER, SELFPAY | PROVIDERS: PCP Internal Medicine; Referring Provider Internal Medicine; Visit Provider Nurse Practitioner Family | DX: K21.9 Gastro-esophageal reflux disease without esophagitis (principal); K59.00 Constipation, unspecified; D36.9 Benign neoplasm, unspecified site; Z98.890 Other specified postprocedural states | CPT/HCPCS: 99212 ==

== ENCOUNTER → 2021-02-26 13:37 | Outpatient (BNVA) | payer MEDICARE, MEDICAID, SELFPAY | PROVIDERS: Visit Provider Nurse Practitioner Family | DX: K59.00 Constipation, unspecified (principal); K21.9 Gastro-esophageal reflux disease without esophagitis | CPT/HCPCS: 99212 ==

== ENCOUNTER 2021-03-06 08:39 | Outpatient (REF) | payer MEDICARE, MEDICAID, SELFPAY ==
--- NOTE | ~2021-03-06 | XR_ITS ---
EXAMINATION: XR CHEST CLINICAL INFORMATION: Shortness of breath COMPARISON: Previous chest x-ray most recent February 2018 TECHNIQUE: 2 views of the chest were obtained. FINDINGS: The cardiac and mediastinal contours are normal. The lungs are clear. There is no pleural effusion or pneumothorax. There are mild degenerative changes of the spine. XR/XR chest 2V IMPRESSION: No evidence for acute disease in the chest.
[2021-03-06 09:02] LABS: MANUAL DIFF FLAG NO
[2021-03-06 10:12] LABS: Estimated Average Glucose 137 mg/dL; Hemoglobin A1c % 6.4 %
[2021-03-06 10:31] LABS: Basophils Absolute Auto 0.1 X10*3/uL (0.0-0.2); Basophils Percent Auto 0.7 % (0-2); Eosinophils Absolute Auto 0.3 X10*3/uL (0.0-0.4); Eosinophils Percent Auto 3.7 % (0-4); Hematocrit 39.6 % (42-52); Hemoglobin 12.3 g/dl (14.0-18.0); Imm Gran Abs Auto 0.02 X10*3/uL (0.00-0.03); Imm Gran Pct Auto 0.3 % (0.0-0.4); Immature Retic Fraction 17.3 % (2.3-13.4); Lymphocytes Absolute Auto 2.6 X10*3/uL (1.2-4.9); Mean Corpuscular HGB Conc 31.1 g/dl (31.0-36.0); Mean Corpuscular Hemoglobin 27.6 pg (27.0-33.0); Monocytes Absolute Auto 0.5 X10*3/uL (0.1-1.2); Monocytes Percent Auto 7.2 % (2-11); Neutrophils Absolute Auto 3.5 X10*3/uL (2.0-8.3); Neutrophils Percent Auto 51.1 % (45-73); Platelet Count 216 X10*3/uL (160-400); Red Blood Count 4.45 X10*6/uL (4.60-5.80); Red Cell Distribution Width 13.5 % (11.0-16.0); Retic HGB Equivalent 31.6 pg (30.0-35.0); Reticulocyte Percent 1.3 % (0.5-1.8); Reticulocytes Absolute 0.058 X10*6/uL (0.026-0.095); White Blood Count 6.9 X10*3/uL (4.8-10.8)
[2021-03-06 10:33] LABS: Alanine Aminotransferase 11 U/L (0-40); Albumin Level 3.9 g/dL (3.5-5.0); Alkaline Phosphatase 82 U/L (39-117); Anion Gap 12 (12-20); Aspartate Amino Transferase 19 U/L (5-37); Bilirubin Total 0.5 mg/dL (0.0-1.0); Blood Urea Nitrogen 18 mg/dL (9-16); Calcium 8.8 mg/dL (8.4-10.2); Carbon Dioxide 24 mmol/L (22-29); Chloride 108 mmol/L (96-108); Cholesterol 120 mg/dL; Estimated Glomerular Filt Rate > 60; Glucose Random 147 mg/dL (60-115); HDL Cholesterol 42 mg/dL; Iron 111 mcg/dL (45-160); LDL Cholesterol Calculated 51 mg/dl; Percent Iron Saturation 44 % (15-50); Sodium 140 mmol/L (135-145); Total Iron Binding Capacity 255 mcg/dL (228-428); Total Protein 6.9 g/dL (6.5-8.0); Triglycerides 139 mg/dL; Unsaturated Iron Binding 144 ug/dL
[2021-03-06 10:39] LABS: Microalbum/Creatinine Ratio Ur 23.9 ug/mg cr
[2021-03-06 10:42] LABS: Prothrombin Time 11.5 SEC (9.9-13.0)
[2021-03-06 10:45] LABS: D Dimer 580 NG/ML
[2021-03-06 10:55] LABS: Ferritin 69 ng/mL (20-250); Thyroid Stimulating Hormone 2.34 uIU/mL (0.32-4.0)
[2021-03-06 10:57] LABS: Free T4 (Free Thyroxine) 0.89 ng/dL (0.71-1.85); Prostate Specific Antigen Scr 0.18 ng/mL (<0.05-4.0); Vitamin D 25-OH Total 21.5 ng/mL (>30)
[2021-03-08 04:31] LABS: Folate 11.1 ng/mL (> or = 4.0); Vitamin B12 205 pg/mL (200-900)
== END 2021-03-06 08:40 | disposition home or self-care (01) ==
LOC: HO.XRAY 08:39
PROVIDERS: Internal Medicine Gastroenterology; Absent Provider Internal Medicine Medical Oncology; PCP Internal Medicine; Visit Provider Internal Medicine
DX: E11.65 Type 2 diabetes mellitus with hyperglycemia (principal); N18.9 Chronic kidney disease, unspecified; D63.1 Anemia in chronic kidney disease; E78.00 Pure hypercholesterolemia, unspecified; R06.02 Shortness of breath; Z79.01 Long term (current) use of anticoagulants
CPT/HCPCS: 36415; 71046; 80053; 80061; 82043; 82306; 82607; 82728; 82746; 83036; 83540; 84153; 84439; 84443; 85025; 85045; 85379; 85610

== ENCOUNTER 2021-03-16 14:38 | Outpatient (REF) | payer MEDICARE, MEDICAID, SELFPAY ==
--- NOTE | ~2021-03-16 | US_ITS ---
EXAMINATION: US VENOUS ULTRASOUND WITH DOPPLER LOWER EXTREMITY, RIGHT CLINICAL INFORMATION: Right lower extremity pain. Assess for occult DVT. COMPARISON: Bilateral lower extremity venous ultrasound with Doppler 07/07, 04/20/2017. TECHNIQUE: Ultrasound of the deep veins is performed from the hip to the calf with compression sonography and color and pulse Doppler assessment. Spectral analysis with color-flow imaging is performed. FINDINGS: There is normal venous compression and respiratory variation and augmented flow. The visualized common femoral vein, superficial femoral vein, profunda femoral vein, popliteal vein, and the trifurcation region shows no evidence of deep venous thrombosis. There is no wall thickening or peripheral intraluminal echogenicity to suggest sequela from old thrombus popliteal vein. There is a popliteal fossa cyst measuring 0.7 x 1.9 cm x 5.6 cm in length US/US venous duplex LE RT IMPRESSION: 1. No DVT demonstrated in the right lower extremity. 2. Popliteal fossa cyst measuring 0.7 x 1.9 x 5.6 cm.
== END 2021-03-16 14:39 | disposition home or self-care (01) ==
LOC: HO.HMGCX 14:38
PROVIDERS: PCP Internal Medicine; Visit Provider Nurse Practitioner Family
DX: M79.604 Pain in right leg (principal)
CPT/HCPCS: 93971

== ENCOUNTER 2021-04-02 07:05 | Outpatient (REF) | payer MEDICARE, MEDICAID, SELFPAY ==
--- NOTE | ~2021-04-02 | XR_ITS ---
EXAMINATION: KNEE X-RAY CLINICAL INFORMATION: Pain COMPARISON: Previous exam April 2014 TECHNIQUE: Standing AP view of both knees and lateral and sunrise view of the right knee FINDINGS: Right: Bone alignment is normal. There is mild medial femoral tibial joint space narrowing. There are small osteophytes at the patellofemoral joint and joint space narrowing. There is a small joint effusion. Standing AP view of the left knee demonstrates medial femoral tibial joint space narrowing. XR/XR knee RT 2V IMPRESSION: Right knee: Arthritis at the medial femoral tibial and patellofemoral joints and small joint effusion. Joint space narrowing at the left medial femoral tibial joint.
--- NOTE | ~2021-04-02 | XR_ITS ---
EXAMINATION: KNEE X-RAY CLINICAL INFORMATION: Pain COMPARISON: Previous exam April 2014 TECHNIQUE: Standing AP view of both knees and lateral and sunrise view of the right knee FINDINGS: Right: Bone alignment is normal. There is mild medial femoral tibial joint space narrowing. There are small osteophytes at the patellofemoral joint and joint space narrowing. There is a small joint effusion. Standing AP view of the left knee demonstrates medial femoral tibial joint space narrowing. XR/XR knee standing BI IMPRESSION: Right knee: Arthritis at the medial femoral tibial and patellofemoral joints and small joint effusion. Joint space narrowing at the left medial femoral tibial joint.
== END 2021-04-02 07:06 | disposition home or self-care (01) ==
LOC: HO.HOSX 07:05
PROVIDERS: Visit Provider Physician Assistant
DX: M17.11 Unilateral primary osteoarthritis, right knee (principal)
CPT/HCPCS: 73560; 73565; 99202

== ENCOUNTER → 2021-04-05 12:48 | Outpatient (BNVA) | payer MEDICARE, MEDICAID, SELFPAY | PROVIDERS: PCP Internal Medicine; Referring Provider Internal Medicine; Visit Provider Internal Medicine Cardiovascular Disease | DX: I25.10 Atherosclerotic heart disease of native coronary artery without angina pectoris (principal); I10 Essential (primary) hypertension | CPT/HCPCS: 93005; 99212 ==

== ENCOUNTER → 2021-04-27 09:03 | Outpatient (BNVA) | payer MEDICARE, MEDICAID, SELFPAY | PROVIDERS: PCP Internal Medicine; Referring Provider Internal Medicine; Visit Provider Nurse Practitioner Family | DX: K59.00 Constipation, unspecified (principal); K21.9 Gastro-esophageal reflux disease without esophagitis; R09.02 Hypoxemia | CPT/HCPCS: 99212 ==

== ENCOUNTER → 2021-06-07 09:33 | Outpatient (BNVA) | payer MEDICARE, MEDICAID, SELFPAY | PROVIDERS: PCP Internal Medicine; Visit Provider Hospitalist | DX: J44.9 Chronic obstructive pulmonary disease, unspecified (principal); R06.02 Shortness of breath; R00.0 Tachycardia, unspecified | CPT/HCPCS: 94618; 99202 ==

== ENCOUNTER 2021-06-22 11:01 | Outpatient (REF) | payer MEDICARE, MEDICAID, SELFPAY ==
--- NOTE | 2021-06-22 11:49 | ECG_ITS ---
Test Reason : COPD Blood Pressure : / mmHG Vent. Rate : 092 BPM Atrial Rate : 092 BPM P-R Int : 188 ms QRS Dur : 102 ms QT Int : 396 ms P-R-T Axes : 062 -10 -07 degrees QTc Int : 489 ms Normal sinus rhythm Nonspecific ST abnormality Prolonged QT Abnormal ECG When compared with ECG of 17-NOV-2013 18:34, QT has lengthened Referred By: Tyrel Feng Electronically Signed By:Adalberto Bar
[2021-06-22 11:56] LABS: MANUAL DIFF FLAG NO
[2021-06-22 12:29] LABS: Basophils Percent Auto 0.6 % (0-2); Eosinophils Absolute Auto 0.1 X10*3/uL (0.0-0.4); Eosinophils Percent Auto 1.3 % (0-4); Hematocrit 42.3 % (42.0-52.0); Hemoglobin 13.1 g/dl (14.0-18.0); Imm Gran Abs Auto 0.01 X10*3/uL (0.00-0.03); Imm Gran Pct Auto 0.2 % (0.0-0.4); Lymphocytes Absolute Auto 2.1 X10*3/uL (1.2-4.9); Lymphocytes Percent Auto 39.8 % (20-40); Mean Corpuscular Hemoglobin 27.3 pg (27.0-33.0); Mean Corpuscular Volume 88.3 fL (80.0-98.0); Monocytes Absolute Auto 0.4 X10*3/uL (0.1-1.2); Monocytes Percent Auto 7.1 % (2-11); Neutrophils Absolute Auto 2.7 x10*3/uL (2.0-8.3); Platelet Count 223 X10*3/uL (160-400); Red Blood Count 4.79 X10*6/uL (4.60-5.80); Red Cell Distribution Width 13.2 % (11.0-16.0); White Blood Count 5.2 X10*3/uL (4.8-10.8)
[2021-06-22 12:45] LABS: D Dimer High Sensitivity 995 NG/ML
[2021-06-22 13:03] LABS: Anion Gap 12 (12-20); Blood Urea Nitrogen 14 mg/dL (9-16); Calcium 9.3 mg/dL (8.4-10.2); Carbon Dioxide 26 mmol/L (22-29); Chloride 107 mmol/L (96-108); Estimated Glomerular Filt Rate 56; Glucose Random 147 mg/dL (60-115); Potassium 3.9 mmol/L (3.3-5.1); Sodium 141 mmol/L (135-145); Troponin-I High Sensitivity < 3.5 ng/L (<3.5-35.0)
[2021-06-22 13:20] LABS: Erythrocyte Sedimentation Rate 18 MM/HR (0-15)
--- NOTE | 2021-06-22 15:37 | PFT_ITS ---
FLOWS: FEV1 113% of predicted at 3.50 L. FVC 106% of predicted at 4.32 L. FEV1 to FVC ratio of 0.81. No bronchodilator testing was performed. LUNG VOLUMES: Slow vital capacity 103% of predicted at 4.38 L. Expiratory reserve volume 33% of predicted at 0.38 L. Patient complaint of fatigue and was unable to complete the test. IMPRESSION: No obstructive ventilatory defect. No bronchodilator testing was performed. Patient stated that he was too fatigue and was not able to finish the test. MD AWAIS Hale/MODL / [id number]
== END 2021-06-22 11:02 | disposition home or self-care (01) ==
LOC: HO.RESP 11:01
PROVIDERS: PCP Internal Medicine; Visit Provider Hospitalist
DX: R06.00 Dyspnea, unspecified (principal); R00.0 Tachycardia, unspecified; J44.9 Chronic obstructive pulmonary disease, unspecified
CPT/HCPCS: 36415; 80048; 84484; 85025; 85379; 85652; 93005; 94010

== ENCOUNTER 2021-07-02 11:52 | Emergency (ER) | payer OTHER, MEDICAID, MEDICARE, SELFPAY ==
[2021-07-02 12:01] VITALS: BP 146/82; PULSE 81; O2SAT 99
[2021-07-02 12:14] VITALS: BP 134/77; PULSE 82; RESP 17; TEMP 36.6; O2SAT 94; BMI 35.2
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
[2021-07-02 13:28] LABS: MANUAL DIFF FLAG NO
[2021-07-02 13:30] LABS: Basophils Percent Auto 0.6 % (0-2); Eosinophils Percent Auto 0.6 % (0-4); Hematocrit 39.9 % (42.0-52.0); Hemoglobin 12.4 g/dl (14.0-18.0); Imm Gran Abs Auto 0.01 X10*3/uL (0.00-0.03); Imm Gran Pct Auto 0.2 % (0.0-0.4); Lymphocytes Absolute Auto 1.7 X10*3/uL (1.2-4.9); Lymphocytes Percent Auto 31.8 % (20-40); Mean Corpuscular HGB Conc 31.1 g/dl (31.0-36.0); Mean Corpuscular Hemoglobin 27.3 pg (27.0-33.0); Mean Corpuscular Volume 87.7 fL (80.0-98.0); Mean Platelet Volume 10.2 fL (9.4-12.4); Monocytes Absolute Auto 0.4 X10*3/uL (0.1-1.2); Monocytes Percent Auto 7.5 % (2-11); Neutrophils Absolute Auto 3.1 x10*3/uL (2.0-8.3); Neutrophils Percent Auto 59.3 % (45-73); Platelet Count 183 X10*3/uL (160-400); Red Blood Count 4.55 X10*6/uL (4.60-5.80); Red Cell Distribution Width 13.3 % (11.0-16.0); White Blood Count 5.2 X10*3/uL (4.8-10.8)
[2021-07-02 13:45] LABS: Anion Gap 11 (12-20); Blood Urea Nitrogen 13 mg/dL (9-16); Calcium 8.9 mg/dL (8.4-10.2); Carbon Dioxide 25 mmol/L (22-29); Chloride 109 mmol/L (96-108); Estimated Glomerular Filt Rate > 60; Glucose Random 104 mg/dL (60-115); Potassium 4.6 mmol/L (3.3-5.1); Sodium 140 mmol/L (135-145)
[2021-07-02 14:07] LABS: Appearance Urine HAZY; Color Urine YELLOW; Glucose Urine UA NEG (NEG); Leukocyte Esterase Urine NEG (NEG); Nitrite Urine NEG (NEG); Specific Gravity - Urine 1.025 (1.005-1.025); Urine Blood NEG (NEG); Urine Ketones NEG (NEG); Urine Protein TRACE MG/DL (NEG-TRACE)
== END 2021-07-02 15:52 | disposition home or self-care (01) ==
PROVIDERS: Emergency Provider Emergency Medicine; PCP Internal Medicine
DX: F03.90 Unspecified dementia, unspecified severity, without behavioral disturbance, psychotic disturbance, mood disturbance, and anxiety (principal); Z87.891 Personal history of nicotine dependence; Z79.899 Other long term (current) drug therapy
CPT/HCPCS: 36415; 80048; 81003; 85025; 99283; 99284

== ENCOUNTER 2021-07-08 10:24 | Outpatient (REF) | payer MEDICARE, MEDICAID, SELFPAY ==
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
--- NOTE | ~2021-07-08 | US_ITS ---
EXAMINATION: US VENOUS ULTRASOUND WITH DOPPLER LOWER EXTREMITY, RIGHT CLINICAL INFORMATION: Acute embolism and thrombosis. COMPARISON: Doppler right leg 03/16/2021 TECHNIQUE: Ultrasound of the deep veins is performed from the hip to the calf with compression sonography and color and pulse Doppler assessment. Spectral analysis with color-flow imaging is performed. FINDINGS: The proximal and mid right common femoral vein has normal flow and Doppler waveform with normal caliber. There is acute clot seen in the right distal common femoral, bifurcation into superficial femoral vein extending throughout its entire length to popliteal vein and into posterior tibial vein. The peroneal vein is not seen. If the patient's symptoms persist, followup ultrasound in 5-7 days might be of value to exclude proximal propagation from a non-visualized calf vein. US/US venous duplex LE RT IMPRESSION: Acute DVT distal common femoral vein to the posterior tibial vein. Results were immediately called by phone to Angela Ortega at 11:11 AM.
== END 2021-07-08 10:25 | disposition home or self-care (01) ==
LOC: HO.US 10:24
PROVIDERS: PCP Internal Medicine; Visit Provider Nurse Practitioner Family
DX: Z13.89 Encounter for screening for other disorder (principal)
CPT/HCPCS: 73562; 93971

== ENCOUNTER 2021-07-08 11:44 | Emergency (ER) | payer MEDICARE, MEDICAID, SELFPAY ==
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
[2021-07-08 11:46] VITALS: BP 139/73; PULSE 69; RESP 20; TEMP 36.3; O2SAT 95; BMI 38.4
[2021-07-08 12:05] LABS: MANUAL DIFF FLAG NO
[2021-07-08 12:07] LABS: Basophils Absolute Auto 0.1 X10*3/uL (0.0-0.2); Eosinophils Absolute Auto 0.1 X10*3/uL (0.0-0.4); Eosinophils Percent Auto 2.1 % (0-4); Hemoglobin 12.2 g/dl (14.0-18.0); Imm Gran Abs Auto 0.01 X10*3/uL (0.00-0.03); Imm Gran Pct Auto 0.2 % (0.0-0.4); Lymphocytes Absolute Auto 2.6 X10*3/uL (1.2-4.9); Lymphocytes Percent Auto 49.1 % (20-40); Mean Corpuscular HGB Conc 30.5 g/dl (31.0-36.0); Mean Corpuscular Hemoglobin 27.1 pg (27.0-33.0); Mean Corpuscular Volume 88.7 fL (80.0-98.0); Mean Platelet Volume 9.5 fL (9.4-12.4); Monocytes Absolute Auto 0.5 X10*3/uL (0.1-1.2); Monocytes Percent Auto 8.8 % (2-11); Neutrophils Percent Auto 38.8 % (45-73); Platelet Count 213 X10*3/uL (160-400); Red Blood Count 4.51 X10*6/uL (4.60-5.80); Red Cell Distribution Width 13.6 % (11.0-16.0); White Blood Count 5.2 X10*3/uL (4.8-10.8)
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
[2021-07-08 12:16] LABS: INTERNATIONAL NORM RATIO 1.1 (0.9-1.1); Prothrombin Time 12.4 SEC (9.9-13.0)
[2021-07-08 12:19] LABS: Partial Thromboplastin Time 34.6 SEC (24.1-38.0)
[2021-07-08 12:26] LABS: Alanine Aminotransferase 70 U/L (0-40); Albumin Level 3.8 g/dL (3.5-5.0); Alkaline Phosphatase 109 U/L (39-117); Anion Gap 8 (12-20); Aspartate Amino Transferase 45 U/L (5-37); Bilirubin Direct 0.2 mg/dL (0.0-0.5); Bilirubin Total 0.5 mg/dL (0.0-1.0); Blood Urea Nitrogen 14 mg/dL (9-16); Carbon Dioxide 26 mmol/L (22-29); Chloride 113 mmol/L (96-108); Creatinine Clr Calc Pharmacy 80.4; Estimated Glomerular Filt Rate > 60; Glucose Random 99 mg/dL (60-115); Potassium 4.3 mmol/L (3.3-5.1); Sodium 143 mmol/L (135-145); Total Protein 7.2 g/dL (6.5-8.0)
== END 2021-07-08 14:08 | disposition home or self-care (01) ==
PROVIDERS: Nurse Practitioner Family; Emergency Provider Emergency Medicine; PCP Internal Medicine
DX: I82.401 Acute embolism and thrombosis of unspecified deep veins of right lower extremity (principal); M25.561 Pain in right knee; M25.461 Effusion, right knee; Z79.82 Long term (current) use of aspirin; Z86.718 Personal history of other venous thrombosis and embolism; Z79.01 Long term (current) use of anticoagulants
CPT/HCPCS: 36415; 70450; 73562; 80048; 80076; 85025; 85610; 85730; 93971; 99283; 99284

== ENCOUNTER → 2021-07-09 11:04 | Outpatient (BNVA) | payer MEDICARE, MEDICAID, SELFPAY | PROVIDERS: PCP Internal Medicine; Visit Provider Hospitalist | DX: R06.02 Shortness of breath (principal); R00.0 Tachycardia, unspecified; J44.9 Chronic obstructive pulmonary disease, unspecified; I82.401 Acute embolism and thrombosis of unspecified deep veins of right lower extremity | CPT/HCPCS: Q3014 ==

== ENCOUNTER → 2021-08-19 13:38 | Outpatient (BNVA) | payer MEDICARE, MEDICAID, SELFPAY | PROVIDERS: PCP Internal Medicine; Referring Provider Internal Medicine; Visit Provider Nurse Practitioner Family | DX: I25.10 Atherosclerotic heart disease of native coronary artery without angina pectoris (principal); I10 Essential (primary) hypertension; I73.9 Peripheral vascular disease, unspecified; E78.5 Hyperlipidemia, unspecified; E78.00 Pure hypercholesterolemia, unspecified; Z86.718 Personal history of other venous thrombosis and embolism; I25.2 Old myocardial infarction; Z79.01 Long term (current) use of anticoagulants; Z95.5 Presence of coronary angioplasty implant and graft | CPT/HCPCS: 99212 ==

== ENCOUNTER → 2021-10-01 14:23 | Outpatient (BNVA) | payer MEDICARE, MEDICAID, SELFPAY | PROVIDERS: PCP Internal Medicine; Visit Provider Hospitalist | DX: J44.9 Chronic obstructive pulmonary disease, unspecified (principal); R06.02 Shortness of breath; I82.401 Acute embolism and thrombosis of unspecified deep veins of right lower extremity; Z79.01 Long term (current) use of anticoagulants | CPT/HCPCS: 99212 ==

== ENCOUNTER 2021-10-11 08:50 | Outpatient (REF) | payer MEDICARE, MEDICAID, SELFPAY ==
--- NOTE | ~2021-10-11 | US_ITS ---
EXAMINATION: US ABDOMEN COMPLETE CLINICAL INFORMATION: Other specified abnormal findings of blood chemistry. COMPARISON: US retroperitoneal limited (renal only) 03/20/2019. XR abdomen KUB 11/04/2015. CT abdomen and pelvis 12/28/2011. TECHNIQUE: Real-time imaging of the abdominal viscera. FINDINGS: PANCREAS: The pancreas is obscured by overlying gas. ABDOMINAL AORTA: The proximal, mid, and distal segments are normal in caliber. INFERIOR VENA CAVA: Visualized portions are normal. LIVER: The liver is normal in size. The liver contour is normal. The liver is diffusely echogenic. No focal hepatic lesion. There is no intrahepatic biliary duct dilatation seen. GALLBLADDER: The gallbladder wall thickness is 0.52 cm.. The gallbladder is physiologically distended without evidence of stones, sludge, polyps, wall thickening or pericholecystic fluid. COMMON BILE DUCT: Normal in caliber measuring 0.2 cm in diameter. RIGHT KIDNEY: Normal. No hydronephrosis. No renal calculi or focal parenchymal lesions. The kidney measures 10.9 cm in maximum dimension. LEFT KIDNEY: Normal. No hydronephrosis. No renal calculi or focal parenchymal lesions. The kidney measures 10.8 cm in maximum dimension. SPLEEN: Normal. The spleen measures 10.0 cm in maximum dimension. FREE FLUID: None. US/US abdomen complete IMPRESSION: Mild hepatic steatosis, otherwise unremarkable complete abdomen ultrasound.
== END 2021-10-11 08:51 | disposition home or self-care (01) ==
LOC: HO.US 08:50
PROVIDERS: Visit Provider Nurse Practitioner Family
DX: R79.89 Other specified abnormal findings of blood chemistry (principal)
CPT/HCPCS: 76700

== ENCOUNTER 2021-10-15 14:19 | Outpatient (REF) | payer MEDICARE, MEDICAID, SELFPAY ==
--- NOTE | ~2021-10-15 | US_ITS ---
EXAMINATION: US VENOUS ULTRASOUND WITH DOPPLER LOWER EXTREMITY, RIGHT CLINICAL INFORMATION: Follow up DVT. Patient on blood thinners. COMPARISON: Ultrasound right lower extremity 07/08/2021. TECHNIQUE: Ultrasound of the deep veins is performed from the hip to the calf with compression sonography and color and pulse Doppler assessment. Spectral analysis with color-flow imaging is performed. FINDINGS: There is noncompression but color Doppler flow seen in the right popliteal vein likely chronic clot. The right common femoral, superficial femoral, profunda and greater saphenous veins are widely patent. The right posterior tibial vein and limited visualization of peroneal veins are patent. There is no significant popliteal fossa cyst. US/US venous duplex LE RT IMPRESSION: Chronic clot seen in the right popliteal vein. Rest of the right lower extremity veins are widely patent.
== END 2021-10-15 14:20 | disposition home or self-care (01) ==
LOC: HO.HMGCX 14:19
PROVIDERS: Visit Provider Hospitalist
DX: I82.401 Acute embolism and thrombosis of unspecified deep veins of right lower extremity (principal)
CPT/HCPCS: 93971

== ENCOUNTER 2021-11-02 11:28 | Outpatient (REF) | payer MEDICARE, MEDICAID, SELFPAY ==
[2021-11-02 12:29] LABS: Cholesterol 92 mg/dL; HDL Cholesterol 40 mg/dL; LDL Cholesterol Calculated 23 mg/dl; Triglycerides 147 mg/dL
[2021-11-02 12:34] LABS: Prostate Specific Antigen Scr 0.17 ng/mL (<0.05-4.0)
[2021-11-02 12:42] LABS: HBS Num1 2.88 mIU/mL (0-7.99); HBc Num1 0.08 S/CO (0.00-0.79); HBsAGNum1 0.22 S/CO (0.00-0.99); Hepatitis B Core Antibody Nonreactive (Nonreactive); Hepatitis B Surface Antigen Negative (Negative); ~HepC Num1 0.13 S/CO (0.00-0.79); ~Hepatitis B Surface Antibody NONREACTIVE (Nonreactive); ~Hepatitis C Antibody Nonreactive (Nonreactive)
[2021-11-02 13:20] LABS: Creatinine Urine 195.25 mg/dL; Microalbum/Creatinine Ratio Ur 3.5 ug/mg cr
[2021-11-05 08:07] LABS: Hepatitis A Antibody IgM 0.45 Index (0-0.79); ~Hepatitis A Antibody IgM Nonreactive (Nonreactive)
== END 2021-11-02 11:29 | disposition home or self-care (01) ==
LOC: HO.LAB 11:28
PROVIDERS: Nurse Practitioner Family; PCP Internal Medicine; Visit Provider Nurse Practitioner Family
DX: Z00.00 Encounter for general adult medical examination without abnormal findings (principal); Z12.5 Encounter for screening for malignant neoplasm of prostate; E11.9 Type 2 diabetes mellitus without complications; E78.00 Pure hypercholesterolemia, unspecified; R79.89 Other specified abnormal findings of blood chemistry
CPT/HCPCS: 36415; 80061; 82043; 84153; 86704; 86706; 86709; 86803; 87340

== ENCOUNTER → 2021-11-09 08:56 | Outpatient (BNVA) | payer MEDICARE, MEDICAID, SELFPAY | PROVIDERS: PCP Internal Medicine; Referring Provider Internal Medicine; Visit Provider Nurse Practitioner Family | DX: Z01.818 Encounter for other preprocedural examination (principal); K59.01 Slow transit constipation; Z79.899 Other long term (current) drug therapy | CPT/HCPCS: 99212 ==

== ENCOUNTER → 2022-02-23 13:32 | Outpatient (BNVA) | payer MEDICARE, MEDICAID, SELFPAY | PROVIDERS: PCP Internal Medicine; Referring Provider Internal Medicine; Visit Provider Internal Medicine Cardiovascular Disease | DX: Z01.810 Encounter for preprocedural cardiovascular examination (principal) | CPT/HCPCS: 93005; 99212 ==

== ENCOUNTER 2022-02-25 08:34 | Day surgery (SDC) | payer MEDICARE, MEDICAID, SELFPAY ==
[2022-02-22 14:18] VITALS: BMI 31.0
--- NOTE | 2022-02-24 13:29 | P.CONAN_ITS ---
Documented by User: Spring Brown NP 02/24/22 13:32 HPI - Anesthesia Eval Consult details Narrative: 67yo M for Colonoscopy Cardiac cleared at [facility] for DVT PMFSH Active Problems Active Problems: All Active Problems (Updated 02/23/22 @ 20:34 by Adalberto Bar MD) Preop cardiovascular exam (Acute) Generalized anxiety disorder (Acute) Low back pain (Acute) Encounter for Medicare annual wellness exam (Acute) Dementia (Acute) Coronary artery disease (Acute) Current use of anticoagulant therapy (Acute) History of DVT (deep vein thrombosis) (Acute) Peripheral vascular disease (Acute) Hypertension (Acute) Hypercholesterolemia (Acute) Type 2 diabetes mellitus with hyperglycemia (Acute) COPD (chronic obstructive pulmonary disease) (Acute) Obstructive sleep apnea (Acute) Anemia in chronic kidney disease (Acute) Tubular adenoma of colon (Acute) Elevated LFTs (Acute) Tremor (Acute) Knee pain, right (Acute) Osteoarthritis of right knee (Acute) Right leg pain (Acute) SOB (shortness of breath) (Acute) Leg ulcer (Acute) Past Medical History Medical History Anemia Romero's cyst of knee Cognitive impairment Constipation COPD (chronic obstructive pulmonary disease) Coronary artery disease Current use of anticoagulant therapy DM2 (diabetes mellitus, type 2) Exertional chest pain History of DVT (deep vein thrombosis) History of renal calculi Hypercholesterolemia Hypertension Lumbar spondylosis Obstructive sleep apnea Polysubstance abuse Rectal bleeding Right leg DVT Tubular adenoma of colon Family History Family History Father No problems noted. Mother Diabetes Hypertension Stroke Family/Other No problems noted. Family/Other Leukemia Other Mental health disorder Surgical History Surgical History History of cardiac cath (~06/2009) History of colonoscopy (~2020) History of cystoscopy (~2001) History of endoscopy (~2020) History of hand surgery History of heart artery stent History of lithotripsy (~2001) Social History Social History Household Members: None Housing: Apartment Are you a primary healthcare consultant to a significant other at home: No Do you presently have visiting nurse or other home services: Yes Alcohol intake: former Patient Tobacco Use Status: Former Tobacco user Tobacco use type: Cigarette Years Smoked: 10 years e-Cigarette/Vaping Use: Never Used Second Hand Smoke Exposure: No Use of substances other than those prescribed or required for medical reasons: No Have you been hit, kicked, punched, or otherwise hurt by someone within the past year? If so, by whom?: No Are you DNR?: Yes Advance Directives: No Advance Directives Information Provided: Yes Recently lost weight without trying: No Eating poorly because of decreased appetite: No Nutrition Risks: No Nutritional Risk Poor oral hygiene: No service: No Current occupational status: retired Cognitive needs: No Hearing needs: No Vision needs: No Meds Allergies Allergy/AdvReac Type Severity Reaction Status Date / Time lisinopril AdvReac Intermediate high Verified 02/23/22 13:45 creatinine Home Medications Medication Instructions Recorded Confirmed Last Taken Type aspirin 81 mg tablet,delayed 81 mg PO DAILY 03/16/21 02/23/22 Unknown History release (Adult Low Dose Aspirin) Exam Exam Date and Time: February 24, 2022 1329 Height,Weight and Vital Signs: Height 5 ft 9 in Weight 95.254 kg Pertinent Lab Results Pertinent Lab Results: Laboratory Tests 09/07/21 09/07/21 12:02 12:02 WBC 5.4 Hgb 12.9 L Hct 41.0 L Plt Count 188 Sodium 139 Potassium 4.3 Chloride 108 Carbon Dioxide 25 BUN 13 Creatinine 1.08 Narrative Narrative: EKG 02/2022 Sinus bradycardia 56 beats per minute, normal axis, normal EKG, QT interval 430 milliseconds. ECHO 08/2020 Conclusions: - 1. Normal LV systolic and diastolic function ? 2. Normal cardiac valvular Doppler ? 3. Normal RV systolic pressure ? 4. No pericardial effusion ? ? ? Assessment and Plan Assessment Anesthesia Assessment: Chart Reviewed Documented by User: Miriam Muñoz MD 02/25/22 09:12 [facility] Past Medical History Medical History Anemia Romero's cyst of knee Cognitive impairment Constipation COPD (chronic obstructive pulmonary disease) Coronary artery disease Current use of anticoagulant therapy DM2 (diabetes mellitus, type 2) Exertional chest pain History of DVT (deep vein thrombosis) History of renal calculi Hypercholesterolemia Hypertension Lumbar spondylosis Obstructive sleep apnea Polysubstance abuse Rectal bleeding Right leg DVT Tubular adenoma of colon Family History Family History Father No problems noted. Mother Diabetes Hypertension Stroke Family/Other No problems noted. Family/Other Leukemia Other Mental health disorder Family history of problems with anesthesia: No Surgical History Surgical History History of cardiac cath (~06/2009) History of colonoscopy (~2020) History of cystoscopy (~2001) History of endoscopy (~2020) History of hand surgery History of heart artery stent History of lithotripsy (~2001) History of Problems with Anesthesia: No Social History Social History Household Members: None Housing: Apartment Are you a primary healthcare consultant to a significant other at home: No Do you presently have visiting nurse or other home services: Yes Alcohol intake: former Patient Tobacco Use Status: Former Tobacco user Tobacco use type: Cigarette Years Smoked: 10 years e-Cigarette/Vaping Use: Never Used Second Hand Smoke Exposure: No Use of substances other than those prescribed or required for medical reasons: No Have you been hit, kicked, punched, or otherwise hurt by someone within the past year? If so, by whom?: No Are you DNR?: Yes Advance Directives: No Advance Directives Information Provided: Yes Recently lost weight without trying: No Eating poorly because of decreased appetite: No Nutrition Risks: No Nutritional Risk Poor oral hygiene: No service: No Current occupational status: retired Cognitive needs: No Hearing needs: No Vision needs: No Meds Allergies Allergy/AdvReac Type Severity Reaction Status Date / Time lisinopril AdvReac Intermediate high Verified 02/23/22 13:45 creatinine Home Medications Medication Instructions Recorded Confirmed Last Taken Type aspirin 81 mg tablet,delayed 81 mg PO DAILY 03/16/21 02/23/22 Unknown History release (Adult Low Dose Aspirin) Exam Airway Mallampati Class: II TM Dist: >3cm Neck ROM: Full Denture: Upper Heart: rrr Lungs: cta Assessment and Plan Assessment Anesthesia Assessment: Anesthesia Plan Discussed Final Anesthetic Review Family History of Problems with Anesthesia: No History of Problems with Anesthesia: No NPO: Yes ASA Class: III Final Preanesthetic Review: No Changes in Pt Med Stat, Meds/Allgs Chart Reviewed and Consent Obtained/Reviewed Patient Risk: Intermediate Procedure Risk: Intermediate Anesthetic Plan Anesthetic Plan: MAC: Disposition: Standard PACU
--- NOTE | 2022-02-25 08:55 | MHC.SHP ---
Pre-Procedural Eval Section A Date of Service: 02/25/22 The patient is an INPATIENT: No The History & Physical has been completed within 30 days and I have reviewed it.: No Section B Chief Complaint: screening Details of Present Illness: Colon cancer screening, history of colon polyps Relevant Family History (Specify if Yes): No Relevant Social History: Tobacco Use (Former smoker) Present Medications: see Short Stay Collaborative assessment Medical History: Significant History (Anemia Romero's cyst of knee Cognitive impairment Constipation COPD (chronic obstructive pulmonary disease) Coronary artery disease Current use of anticoagulant therapy DM2 (diabetes mellitus, type 2) Exertional chest pain History of DVT (deep vein thrombosis) History of renal calculi Hypercholestero) History of Previous Operations: Relevant previous surgery/procedure and date(s) (History of cardiac cath (~06/2009) History of colonoscopy (~2020) History of cystoscopy (~2001) History of endoscopy (~2020) History of hand surgery History of heart artery stent History of lithotripsy (~2001)) Allergies: Allergies Former smoker Allergy/AdvReac Type Severity Reaction Status Date / Time lisinopril AdvReac Intermediate high Verified 02/23/22 13:45 creatinine Review of Systems Sugical H&P ROS: Negative: Constitution, Cardiovascular, Respiratory and Gastrointestinal Exam Surgical H&P Exam: Normal: Heart, Normal: Lungs, Normal: Extremities and Normal: Abdomen Plan Diagnosis/Plan: Unchanged I have reviewed the history and physical and performed a pertinent physical examination on my patient. No changes have occurred unless specified.
--- NOTE | 2022-02-25 09:01 | W.PM.OPN ---
Operative Note Operative Note Date of Service: 02/25/22 Narrative: Pre-op diagnosis: Colon cancer screening, history of colon polyps Post-op diagnosis:?other (Colon polyps, diverticulosis, hemorrhoids) Procedure: COLONOSCOPY TILL CECUM WITH BIOPSIES, SNARE POLYPECTOMY Consent: Indications for the procedure and potential complications of bleeding, perforation, reaction to medications and missed diagnosis were discussed with the patient's daughter, Janis Cameron and informed consent was obtained. Instrument: Olympus CF H 190 L variable stiffness adult colonoscope Monitoring: Vital signs and clinical assessment, intermittent blood pressure monitoring, continuous EKG monitoring, Pulse oximetry and Carbon Dioxide monitoring were done throughout the procedure. Colon withdrawl time was 23 minutes. Procedure: The patient was placed in the left lateral decubitis position and pre-procedure medications were administered. After a digital rectal examination of the ano-rectum, the video colonoscope was inserted into the rectum and advanced through the colon to the cecum. The colonoscope was slowly withdrawn in a retrograde panoramic fashion and the colon mucosa was carefully examined including a retroflexed view of the rectum. Findings and interventions are described below. Procedure Difficulty:? LLQ pressure applied to intubate the cecum Findings: Terminal Ileum: Not evaluated Cecum:? Partially visualized due to undigested vegetable matter in the cecum. A 4-5 mm diminutive appearing polyp removed with a cold bx Ascending Colon:? Two 4-5 mm sessile polyps removed with a cold bx Transverse Colon:? Two 7-9 mm sessile polyps removed with a cold snare. Descending Colon:? Moderate diverticulosis Sigmoid Colon: A 10 mm sessile polyp removed with a hot snare. Moderate diverticulosis Rectum:? Normal Ano-rectum:? Moderate internal hemorrhoids Colon preparation:? Good after copious irrigation.? Fair in the cecum Impression and Post Procedure Diagnosis: Colonoscopy Findings: Six small to medium sized polyps removed Moderate diverticulosis seen in the left colon Moderate hemorrhoids on retroflexed exam. Plan: Await pathology results Patient has an appointment on 02/23/22 in the [facility] with Patti Jerry FNP-ZACHERY. Repeat Colonoscopy interval based on path results - in 3 years if polyps are adenomatous and 5 years if polyps are hyperplastic (due to hx of colon polyps). Above findings were reviewed with the patient and colon polyps and diverticulosis handouts were given in the discharge area Surgeon: Gage Jimenez MD Anesthesia:?MAC Was an Blister Packaging Machine Operator used for this Procedure?:?Yes Blister Packaging Machine Operator:?Lei Hinojosa Estimated blood loss (mL):?1 Pathology:?other (A- TRANSVERSE COLON POLYPS? B- CECAL POLYP? C- ASCENDING COLON POLYPS? D- SIGMOID COLON POLYP) Condition:?stable Disposition:?PACU
[2022-02-25 09:06] VITALS: BP 166/83; PULSE 83; RESP 18; TEMP 37.1; O2SAT 97
[2022-02-25 09:07] LABS: Glucose, Whole Blood 110 mg/dL (60-115)
[2022-02-25] MEDS: Lactated Ringers 1,000 ML 100 ML IVCONT (09:08)
[2022-02-25 10:02] VITALS: BP 106/61; PULSE 58; RESP 16; TEMP 36.8; O2SAT 92
[2022-02-25 10:04] VITALS: O2SAT 94
[2022-02-25 10:17] VITALS: BP 133/71; PULSE 59; RESP 16; O2SAT 94
[2022-02-25 10:36] VITALS: TEMP 37
== END 2022-02-25 11:10 | disposition home or self-care (01) ==
PROVIDERS: PCP Internal Medicine; Visit Provider Internal Medicine Gastroenterology
PROC: 0DJD8ZZ Inspection of Lower Intestinal Tract, Via Natural or Artificial Opening Endoscopic (ICD-10-PCS; CPT 45378; principal; 2022-02-25 09:10)
DX: Z12.11 Encounter for screening for malignant neoplasm of colon (principal); Z86.010 Personal history of colon polyps; D12.2 Benign neoplasm of ascending colon; D12.3 Benign neoplasm of transverse colon; D12.5 Benign neoplasm of sigmoid colon; K64.8 Other hemorrhoids; K57.30 Diverticulosis of large intestine without perforation or abscess without bleeding; K59.01 Slow transit constipation; K21.9 Gastro-esophageal reflux disease without esophagitis; J44.9 Chronic obstructive pulmonary disease, unspecified; E78.00 Pure hypercholesterolemia, unspecified; I25.10 Atherosclerotic heart disease of native coronary artery without angina pectoris; Z98.61 Coronary angioplasty status; I10 Essential (primary) hypertension; Z86.718 Personal history of other venous thrombosis and embolism; Z79.01 Long term (current) use of anticoagulants; E11.9 Type 2 diabetes mellitus without complications; D64.9 Anemia, unspecified; Z79.82 Long term (current) use of aspirin; Z79.899 Other long term (current) drug therapy; Z88.8 Allergy status to other drugs, medicaments and biological substances; Z87.891 Personal history of nicotine dependence
CPT/HCPCS: 45385; 45380; 82947; 88305

== ENCOUNTER → 2022-03-25 08:35 | Outpatient (BNVA) | payer MEDICARE, MEDICAID, SELFPAY | PROVIDERS: PCP Internal Medicine; Visit Provider Nurse Practitioner Family | DX: D12.6 Benign neoplasm of colon, unspecified (principal); K57.90 Diverticulosis of intestine, part unspecified, without perforation or abscess without bleeding; K64.9 Unspecified hemorrhoids; Z98.890 Other specified postprocedural states | CPT/HCPCS: 99212 ==

== ENCOUNTER → 2022-05-25 08:40 | Outpatient (BNVA) | payer MEDICARE, MEDICAID, SELFPAY | PROVIDERS: PCP Internal Medicine; Visit Provider Hospitalist | DX: J44.9 Chronic obstructive pulmonary disease, unspecified (principal); Z86.718 Personal history of other venous thrombosis and embolism; Z79.01 Long term (current) use of anticoagulants | CPT/HCPCS: 99212 ==

== ENCOUNTER → 2022-06-17 08:36 | Outpatient (BNVA) | payer MEDICARE, MEDICAID, SELFPAY | PROVIDERS: PCP Internal Medicine; Referring Provider Internal Medicine; Visit Provider Nurse Practitioner Family | DX: K57.30 Diverticulosis of large intestine without perforation or abscess without bleeding (principal); K59.04 Chronic idiopathic constipation | CPT/HCPCS: 99212 ==

== ENCOUNTER 2022-07-18 13:17 | Outpatient (REF) | payer MEDICARE, MEDICAID, SELFPAY ==
--- NOTE | ~2022-07-18 | US_ITS ---
EXAMINATION: US VENOUS ULTRASOUND WITH DOPPLER LOWER EXTREMITY, RIGHT CLINICAL INFORMATION: History of venous thrombosis and embolism COMPARISON: Lower extremity duplex study 10/15/2021 TECHNIQUE: Ultrasound of the deep veins is performed from the hip to the calf with compression sonography and color and pulse Doppler assessment. Spectral analysis with color-flow imaging is performed. FINDINGS: Redemonstrated is a linear echogenic focus within the right popliteal vein with noncompressibility consistent with a chronic thrombus. The right common femoral, superficial femoral, profunda, and great saphenous veins are widely patent with normal venous compression and respiratory variation. Right posterior tibial vein and peroneal veins are patent. No evidence of Romero's cyst. US/US venous duplex LE RT IMPRESSION: Chronic nonocclusive right popliteal vein thrombus, unchanged in appearance since prior study.
== END 2022-07-18 13:18 | disposition home or self-care (01) ==
LOC: HO.US 13:17
PROVIDERS: Visit Provider Hospitalist
DX: Z86.718 Personal history of other venous thrombosis and embolism (principal)
CPT/HCPCS: 93971

== ENCOUNTER 2022-09-26 10:58 | Emergency (ER) | payer OTHER, SELFPAY ==
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
[2022-09-26 11:09] VITALS: BP 128/56; BP 178/93; PULSE 54; PULSE 60; RESP 16; TEMP 36.8; O2SAT 94; BMI 39.0
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
[2022-09-26 11:45] LABS: MANUAL DIFF FLAG NO
[2022-09-26 11:51] LABS: Basophils Percent Auto 0.7 % (0-2); Eosinophils Absolute Auto 0.1 X10*3/uL (0.0-0.4); Hemoglobin 11.6 g/dl (14.0-18.0); Imm Gran Abs Auto 0.01 X10*3/uL (0.00-0.03); Imm Gran Pct Auto 0.2 % (0.0-0.4); Lymphocytes Absolute Auto 1.5 X10*3/uL (1.2-4.9); Lymphocytes Percent Auto 34.1 % (20-40); Mean Corpuscular HGB Conc 30.5 g/dl (31.0-36.0); Mean Corpuscular Hemoglobin 27.2 pg (27.0-33.0); Mean Corpuscular Volume 89.2 fL (80.0-98.0); Mean Platelet Volume 9.9 fL (9.4-12.4); Monocytes Absolute Auto 0.3 X10*3/uL (0.1-1.2); Monocytes Percent Auto 7.9 % (2-11); Neutrophils Absolute Auto 2.3 x10*3/uL (2.0-8.3); Neutrophils Percent Auto 54.1 % (45-73); Platelet Count 174 X10*3/uL (160-400); Red Blood Count 4.26 X10*6/uL (4.60-5.80); Red Cell Distribution Width 13.2 % (11.0-16.0); White Blood Count 4.3 X10*3/uL (4.8-10.8)
[2022-09-26 11:59] LABS: Anion Gap 9 (12-20); Blood Urea Nitrogen 16 mg/dL (9-16); Calcium 8.5 mg/dL (8.4-10.2); Carbon Dioxide 25 mmol/L (22-29); Chloride 115 mmol/L (96-108); Creatinine Clr Calc Pharmacy 94.8; Estimated Glomerular Filt Rate > 60; Glucose Random 109 mg/dL (60-115); Potassium 4.5 mmol/L (3.3-5.1); Sodium 144 mmol/L (135-145)
[2022-09-26] MEDS: iohexoL 350 MG/ML 100 ML INFUS..BTL 85 ML IV (12:51)
[2022-09-26 13:07] VITALS: BP 120/65; PULSE 44; RESP 18; TEMP 36.5; O2SAT 95
--- NOTE | 2022-09-26 13:55 | ECG_ITS ---
Test Reason : bradycardia Blood Pressure : / mmHG Vent. Rate : 035 BPM Atrial Rate : 035 BPM P-R Int : 182 ms QRS Dur : 100 ms QT Int : 496 ms P-R-T Axes : 033 002 -04 degrees QTc Int : 378 ms Marked sinus bradycardia with sinus arrhythmia Cannot rule out Anterior infarct , age undetermined Abnormal ECG When compared with ECG of 22-JUN-2021 12:03, Vent. rate has decreased BY 57 BPM Nonspecific T wave abnormality now evident in Anterior leads QT has shortened Referred By: Chaya Howell Electronically Signed By:Adalberto Bar
[2022-09-26 15:19] VITALS: PULSE 43
[2022-09-26 18:55] LABS: TSH reflex Free T4 1.25 uIU/mL (0.32-4.0)
== END 2022-09-26 16:12 | disposition home or self-care (01) ==
PROVIDERS: Physician Assistant; Emergency Provider Emergency Medicine; PCP Internal Medicine
DX: S39.012A Strain of muscle, fascia and tendon of lower back, initial encounter (principal); V43.52XA Car driver injured in collision with other type car in traffic accident, initial encounter; R00.1 Bradycardia, unspecified; Y93.89 Activity, other specified; Y92.414 Local residential or business street as the place of occurrence of the external cause; Y99.9 Unspecified external cause status
CPT/HCPCS: 36415; 70450; 72125; 74177; 80048; 84443; 85025; 93005; 97161; 99284; Q9967

== ENCOUNTER → 2022-10-25 14:00 | Outpatient (REF) | payer OTHER, SELFPAY | LOC: HO.SL 14:00 | PROVIDERS: PCP Internal Medicine; Visit Provider Internal Medicine | DX: G47.33 Obstructive sleep apnea (adult) (pediatric) (principal); R06.83 Snoring | CPT/HCPCS: 95806 ==

== ENCOUNTER 2022-12-26 11:36 | Outpatient (AMB) | payer OTHER, SELFPAY ==
[2022-12-26 11:41] VITALS: BP 130/68; PULSE 78; O2SAT 97; BMI 37.2
--- NOTE | 2022-12-26 11:41 | MHC.PC.OV ---
Vital Signs 12/26/22 11:41 Height 5 ft 9 in Weight 252 lb BMI 37.2 BP 130/68 Blood Pressure Location Lt brachial Position Sitting Pulse 78 Pulse Source Pulse Oximeter Pulse Oximetry (%) 97 Oxygen Delivery Method Room Air Intake Visit Reasons: LBP, ISH, DM Allergies lisinopril Adverse Reaction (Intermediate, Verified 12/26/22 11:41) high creatinine Tobacco use date assessed: 10/19/22 Fall risk assessment: No Falls in past year Last assessed Fall Risk: 12/26/22 Dental Screening Dental Screen Date: 12/26/22 Did you have a dental visit in the last 12 months?: Yes Did you have a dental problem in the last 6 months where you did not have access to dental care?: No Was dental information given to patient?: Patient has dentist HPI LBP, ISH, DM HPI Details 67-year-old male with dementia, obstructive sleep apnea COPD hypertension hypercholesterolemia coronary artery disease generalized anxiety disorder diabetes mellitus coming in for follow-up last seen for preop in October for cataract surgery. Patient is here for follow-up. Patient had a sleep study done in October 2022 revealing negative results patient also has been having physical therapy for low back pain [facility] Medical History (Updated 12/26/22 @ 12:07 by Nevaeh Aquino MD) Anemia Romero's cyst of knee Cognitive impairment Constipation COPD (chronic obstructive pulmonary disease) Coronary artery disease Current use of anticoagulant therapy Diverticulosis DM2 (diabetes mellitus, type 2) Exertional chest pain History of DVT (deep vein thrombosis) History of renal calculi Hypercholesterolemia Hypertension Lumbar spondylosis Obstructive sleep apnea Polysubstance abuse Preop exam for internal medicine Rectal bleeding Right leg DVT Tubular adenoma of colon Surgical History History of cardiac cath (~06/2009) History of colonoscopy (~2020) History of cystoscopy (~2001) History of endoscopy (~2020) History of hand surgery History of heart artery stent History of lithotripsy (~2001) Family History Father No problems noted. Mother Diabetes Hypertension Stroke Family/Other No problems noted. Family/Other Leukemia Other Mental health disorder Social History Household Members: None Housing: Apartment Are you a primary caregiver services home to a significant other at home: No Do you presently have visiting nurse or other home services: Yes Alcohol intake: never Patient Tobacco Use Status: Former Tobacco user Tobacco use type: Cigarette Years Smoked: 10 years e-Cigarette/Vaping Use: Never Used Second Hand Smoke Exposure: No Advance Directives Date on File: 10/13/21 service: No Current occupational status: retired Cognitive needs: No Hearing needs: No Vision needs: No Questionnaire PHQ-9 Over the last 2 weeks, how often have you been bothered by any of the following problems? 1. Little interest or pleasure in doing things: several days 2. Feeling down, depressed, or hopeless: several days 3. Trouble falling or staying asleep, or sleeping too much: several days 4. Feeling tired or having little energy: several days 5. Poor appetite or overeating: several days 6. Feeling bad about yourself - or that you are a failure or have let yourself or your family down: several days 7. Trouble concentrating on things, such as reading the newspaper or watching television: not at all 8. Moving or speaking so slowly that other people could have noticed. Or the opposite - being so fidgety or restless that you have been moving around a lot more than usual: not at all 9. Thoughts that you would be better off or of hurting yourself in some way: not at all Total score: 6 Depression Screening Interpretation: Positive Source: Developed by Drs. Maynor Colon, Viviana Jacobson, Dandy Garcia and colleagues, with an educational leonard from [employer]. Thrive Questionnaire Date Thrive assessed: 09/19/22 AUDIT C Alcohol Use Questionnaire (AUDIT-C) 1. How often do you have a drink containing alcohol?: Never 3. How often do you have six or more drinks on one occasion?: Never Total Score: 0 Score Reviewed/Action Taken: No GENA-7 AMB Questionnaire GENA-7 Date GENA - 7 assessed: 09/19/22 Source: Developed by Drs. Maynor Colon, Dandy Serrano and colleagues, with an educational leonard from [employer]. Physical exam (Primary Care) Vital Signs: Last Vital Signs Pulse 78 12/26/22 11:41 BP 130/68 12/26/22 11:41 Pulse Ox 97 12/26/22 11:41 Oxygen Delivery Method Room Air 12/26/22 11:41 BMI result Body Mass Index 37.2 Tobacco/Smoking Status: Tobacco use Status Tobacco use date assessed 10/19/22 12/26/22 11:42 Patient Tobacco Use Status Former Tobacco user 12/26/22 11:42 Tobacco use type Cigarette 12/26/22 11:42 e-Cigarette/Vaping Use Never Used 12/26/22 11:42 PHQ-9: PHQ-9 Score PHQ-9: Total score 6 12/26/22 11:52 Depression Screening Interpretation: Positive Thrive Assessment: Date of Thrive Assessment Date Thrive assessed 09/19/22 12/26/22 11:42 Const General: alert; No acute distress Eyes Conjunctivae: conjunctivae normal Resp Auscultation: clear to auscultation bilaterally Cardio Rate: regular rate Rhythm: regular rhythm GI Inspection: Yes normal to inspection Extrem General: Yes normal to inspection and No edema Results AMB Hemoglobin A1c AMB Hemoglobin A1c 6.0 % Last Edit by Ofelia Guzman CMA on 12/26/22 11:56 Assessment and Plan Assessment & Plan (1) COPD (chronic obstructive pulmonary disease): Code(s): J44.9 - Chronic obstructive pulmonary disease, unspecified Plan: Continue with the inhaler as needed (2) Hypercholesterolemia: Code(s): E78.00 - Pure hypercholesterolemia, unspecified Plan: Avoid fried foods, chicken skin, eggs, butter margarine, pastries and meat. Be it pork or beef they have a lot of cholesterol LDL goal of less than 70 and triglyceride of less than 150 requested and reminded (3) Hypertension: Code(s): I10 - Essential (primary) hypertension Qualifiers: Hypertension type: essential hypertension Qualified Code(s): I10 - Essential (primary) hypertension Plan: Continue with blood pressure medication. Decrease salt intake and exercise continue with metoprolol 50 mg once a day hydralazine 25 mg twice a day blood work requested and reminded (4) History of DVT (deep vein thrombosis): Comment: (Hx Right leg DVT 07/2009 and Right leg DVT 08/2021) Code(s): Z86.718 - Personal history of other venous thrombosis and embolism Plan: Continue with anticoagulation (5) Coronary artery disease: Comment: [place] July 2009 cardiac catheterization June 2009 no obstructive Code(s): I25.10 - Atherosclerotic heart disease of [place] coronary artery without angina pectoris Qualifiers: Associated angina: without angina Coronary Disease-Associated Artery/Lesion type: [place] artery [place] vs. transplanted heart: [place] heart Qualified Code(s): I25.10 - Atherosclerotic heart disease of [place] coronary artery without angina pectoris Plan: Control the cholesterol, weight, blood pressure (6) Generalized anxiety disorder: Code(s): F41.1 - Generalized anxiety disorder Plan: Continue with clonazepam as needed (7) Dementia: Code(s): F03.90 - Unspecified dementia, unspecified severity, without behavioral disturbance, psychotic disturbance, mood disturbance, and anxiety Plan: Continue with present medication (8) Type 2 diabetes mellitus with hyperglycemia: Comment: March 2020 hemoglobin A1c of 6.6 [facility] Code(s): E11.65 - Type 2 diabetes mellitus with hyperglycemia Plan: Decrease the amount of carbohydrate intake, pasta, bread, rice and potatoes are all sugar and that is aside from all the sweet stuff, remember that fruits are good but they are Sweet also. Hemoglobin A1c goal of less than 7.0. Patient is asking for the Ozempic to help with weight loss. Discussed the limitations . Will need insurance coverage. Orders: Orders AMB Hemoglobin A1c Today Z13.9 - Encounter for screening, unspecified Medications: New semaglutide (Ozempic) for 4 weeks 0.25 mg (0.4 mL) subcut QWEEK 3 mL 0RF E11.65 - Type 2 diabetes mellitus with hyperglycemia semaglutide (Ozempic) 0.5 mg (0.8 mL) subcut QWEEK 3 mL 1RF E11.65 - Type 2 diabetes mellitus with hyperglycemia Coding Level of Care Code Est Pt Level 4 (96125) Diagnoses COPD (chronic obstructive pulmonary disease) J44.9 Hypercholesterolemia E78.00 Hypertension I10 Hypertension type: essential hypertension History of DVT (deep vein thrombosis) Z86.718 Coronary artery disease I25.10 Associated angina: without angina Coronary Disease-Associated Artery/Lesion type: [place] artery [place] vs. transplanted heart: [place] heart Generalized anxiety disorder F41.1 Dementia F03.90 Type 2 diabetes mellitus with hyperglycemia E11.65
== END 2022-12-26 12:10 | disposition home or self-care (01) ==
PROVIDERS: Visit Provider Internal Medicine
DX: J44.9 Chronic obstructive pulmonary disease, unspecified (principal); E78.00 Pure hypercholesterolemia, unspecified; I10 Essential (primary) hypertension; Z86.718 Personal history of other venous thrombosis and embolism; I25.10 Atherosclerotic heart disease of native coronary artery without angina pectoris; F41.1 Generalized anxiety disorder; F03.90 Unspecified dementia, unspecified severity, without behavioral disturbance, psychotic disturbance, mood disturbance, and anxiety; E11.65 Type 2 diabetes mellitus with hyperglycemia; Z13.9 Encounter for screening, unspecified
CPT/HCPCS: 83036; 99214

== ENCOUNTER 2023-03-27 08:42 | Outpatient (AMB) | payer OTHER, SELFPAY ==
[2023-03-27 08:47] VITALS: BP 120/72; PULSE 78; BMI 35.3
--- NOTE | 2023-03-27 08:47 | MHC.OFFVIS ---
Intake Vital Signs 03/27/23 08:47 Height 5 ft 9 in Weight 238 lb 15.697 oz BMI 35.3 BP 120/72 Blood Pressure Location Lt brachial Position Sitting Pulse 78 Intake Visit Reasons: 1yr f/u Intake Note: 1 year f/u Allergies lisinopril Adverse Reaction (Intermediate, Verified 03/27/23 08:50) high creatinine Medication List - Last Reconciled 03/27/23 by DEUCE [place] ascorbate calcium (vitamin C) 500 mg PO DAILY 90 days blood sugar diagnostic (FreeStyle Lite Strips) As directed check blood sugars once a day blood-glucose meter (FreeStyle Lite Meter kit) As directed clonazepam 1 mg PO DAILY clonidine HCl 0.1 mg PO BID 90 days [email or web address],knee,reg,xlrg As directed CPAP (CPAP Machine/Device) As directed cyanocobalamin (vitamin B-12) 1,000 mcg PO DAILY 90 days cyclobenzaprine 10 mg PO TID [DIABETIC SHOES As directed] docusate sodium 100 mg PO BEDTIME donepezil 10 mg PO BEDTIME 30 days ezetimibe (Zetia) 10 mg PO DAILY ferrous sulfate (Feosol) 325 mg PO DAILY 90 days gabapentin 300 mg PO DAILY hydralazine 25 mg PO Q12H 90 days lancets (FreeStyle Lancets) As directed check the blood sugars once a day linaclotide (Linzess) 145 mcg PO DAILY memantine (Namenda) 5 mg PO QAM methylcellulose (laxative) (Fiber Therapy (methylcellulose)) 500 mg PO DAILY metoprolol succinate ER 50 mg PO DAILY nitroglycerin (Nitrostat) 0.4 mg sublingual Q5M PRN pantoprazole 40 mg PO BID polyethylene glycol 3350 (Miralax) 17 grams PO DAILY rivaroxaban (Xarelto) 20 mg PO DAILY 90 days rosuvastatin (Crestor) 40 mg PO DAILY semaglutide (Ozempic) 0.5 mg (0.736 mL) subcut QWEEK semaglutide (Ozempic) 0.25 mg (0.368 mL) subcut QWEEK topiramate 25 mg PO BID 90 days tramadol 50 mg PO TID PRN 30 days trazodone 50 mg PO BEDTIME PRN [walker with seat and wheels As directed] HPI 1yr f/u HPI Details Francisco is a 68-year-old male past medical history of Parkinson's disease, memory issues, sleep apnea, hypertension, hyperlipidemia, diabetes, sinus bradycardia, minimal coronary disease who presents for follow-up. Today he reports he has been doing well since his last visit 02/23/2022. He denies having any chest discomfort at rest or with activity. No shortness of breath, palpitations, presyncope, syncope, PND, orthopnea or edema. He stays active by walking his dog daily. He takes his medications as directed. He did have hematuria on 2 days over a month ago, none since then. Daughter is present and assisting with Martiniquais interpretation at their request. Permit signed. [facility] Medical History Preop exam for internal medicine Diverticulosis DM2 (diabetes mellitus, type 2) Tubular adenoma of colon Right leg DVT COPD (chronic obstructive pulmonary disease) Romero's cyst of knee Exertional chest pain Constipation Rectal bleeding History of DVT (deep vein thrombosis) Hypercholesterolemia Anemia Obstructive sleep apnea Cognitive impairment Coronary artery disease History of renal calculi Polysubstance abuse Lumbar spondylosis Hypertension Current use of anticoagulant therapy Surgical History History of heart artery stent History of endoscopy (~2020) History of cystoscopy (~2001) History of lithotripsy (~2001) History of colonoscopy (~2020) History of cardiac cath (~06/2009) History of hand surgery Family History Father No problems noted. Mother Diabetes Hypertension Stroke Family/Other No problems noted. Family/Other Leukemia Other Mental health disorder Social History Household Members: None Housing: Apartment Are you a primary skin care instructor to a significant other at home: No Do you presently have visiting nurse or other home services: Yes Alcohol intake: never Patient Tobacco Use Status: Former Tobacco user Tobacco use type: Cigarette Years Smoked: 10 years e-Cigarette/Vaping Use: Never Used Second Hand Smoke Exposure: No Advance Directives Date on File: 10/13/21 service: No Current occupational status: retired Cognitive needs: No Hearing needs: No Vision needs: No Review of Systems Const All systems reviewed & are unremarkable except as noted in HPI and below ENT Denies dizziness Card Denies chest pain, Denies chest pain at rest, Denies chest pain with activity, Denies rapid heart rate, Denies pedal edema, Denies edema, Denies leg edema, Denies lightheadedness, Denies palpitations, Denies dyspnea, Denies dyspnea on exertion and Denies orthopnea Resp Denies cough, Denies dyspnea and Denies dyspnea on exertion GI Denies hematochezia and Denies change in stool character Musc Denies abnormal gait, Denies limited range of motion, Denies muscle cramps, Denies muscle weakness, Denies numbness, Denies radiating pain into limb, Denies stiffness and Denies tingling Neuro Denies abnormal gait, Denies dizziness, Denies numbness and Denies tingling Endo Denies palpitations Physical Exam Vital Signs: Last Vital Signs Pulse 78 03/27/23 08:47 BP 120/72 03/27/23 08:47 BMI result Body Mass Index 35.3 Const General: cooperative, healthy appearing, comfortable and no acute distress Orientation/consciousness: patient oriented x3 Neck Neck: Yes normal visual inspection Resp Effort & Inspection: normal respiratory effort Auscultation: clear to auscultation bilaterally, no crackles, no rales, no rhonchi and no wheezes Cardio Jugular venous distension: no JVD Rate: regular rate Rhythm: regular rhythm Heart sounds: S1 normal heart sound present, S2 normal heart sound present, no murmurs and no rubs Skin General skin exam: no rashes or lesions noted Neuro General: patient oriented x3 Extrem General: Yes normal to inspection Psych Appearance: grossly normal Mental Status: mental status grossly normal Speech and movement: Normal speech and movement present Office Procedures EKG Details: today, me, normal sinus rhythm, sinus arrhythmia, nonspecific ST and T-wave abnormality, rate 78, QTC 435 millisecond [id number], Complete Assessment & Plan Assessment & Plan (1) Coronary artery disease: Comment: [place] July 2009 cardiac catheterization June 2009 no obstructive Code(s): I25.10 - Atherosclerotic heart disease of [place] coronary artery without angina pectoris Qualifiers: Coronary Disease-Associated Artery/Lesion type: [place] artery [place] vs. transplanted heart: [place] heart Associated angina: without angina Qualified Code(s): I25.10 - Atherosclerotic heart disease of [place] coronary artery without angina pectoris Plan: History of NSTEMI June 2009. He underwent cardiac catheterization at that time showing only minor luminal irregularities. No finding for NSTEMI identified. He was on aspirin and Plavix following the event. More recently he has been doing well with no anginal sounding symptoms. He did have a nuclear stress test 07/23/2020 which showed no ischemia, fixed defect noted which was thought to be diaphragm artifact. Last echo 08/19/2020 showed EF 60-65%, no valve abnormalities, normal RV. Today he reports he has been feeling well with no cardiac complaints. EKG done today showing sinus rhythm with sinus arrhythmia, nonspecific ST abnormality, rate 78. Will have him continue on high-dose statin, metoprolol for stable CAD. He is not on aspirin as he is on Xarelto. Signs and symptoms of angina reviewed. Cardiology follow-up in 1 year, sooner if needed (2) Hypertension: Code(s): I10 - Essential (primary) hypertension Qualifiers: Hypertension type: essential hypertension Qualified Code(s): I10 - Essential (primary) hypertension Plan: Well controlled at this time. Continue current med management without change. (3) Hypercholesterolemia: Code(s): E78.00 - Pure hypercholesterolemia, unspecified Plan: [place] LDL goal less than 70. Last labs in our system 11/02/2021 showed LDL 23. His labs are followed by his PCP. Continue rosuvastatin 40 mg daily. (4) History of DVT (deep vein thrombosis): Comment: (Hx Right leg DVT 07/2009 and Right leg DVT 08/2021) Code(s): Z86.718 - Personal history of other venous thrombosis and embolism Plan: History of right lower leg DVT. He has swelling in that lower extremity which is chronic. He continues on Xarelto 20 mg daily. Episode of hematuria approximally 1 month ago, no recurrent episodes since then. Instructed to request urology referral if he has any recurrent hematuria. Xarelto was prescribed by his PCP for the problem of DVT. Coding Level of Care Code Est Pt Level 4 (28368) Diagnoses Coronary artery disease involving [place] coronary artery of [place] heart without angina pectoris I25.10 Coronary Disease-Associated Artery/Lesion type: [place] artery [place] vs. transplanted heart: [place] heart Associated angina: without angina Essential hypertension I10 Hypertension type: essential hypertension Hypercholesterolemia E78.00 History of DVT (deep vein thrombosis) Z86.718 CPT Codes EKG - CPT: 05870-[id number], Complete ([id number]) Time Spent (min) 26
== END 2023-03-27 09:16 | disposition home or self-care (01) ==
PROVIDERS: PCP Internal Medicine; Visit Provider Nurse Practitioner Family
DX: I25.10 Atherosclerotic heart disease of native coronary artery without angina pectoris (principal); I10 Essential (primary) hypertension; E78.00 Pure hypercholesterolemia, unspecified; Z86.718 Personal history of other venous thrombosis and embolism
CPT/HCPCS: 93010; 99214

== ENCOUNTER → 2023-03-27 08:42 | Outpatient (BNVA) | payer OTHER, SELFPAY | PROVIDERS: PCP Internal Medicine; Visit Provider Nurse Practitioner Family | DX: I25.10 Atherosclerotic heart disease of native coronary artery without angina pectoris (principal); I10 Essential (primary) hypertension; E78.00 Pure hypercholesterolemia, unspecified; Z86.718 Personal history of other venous thrombosis and embolism | CPT/HCPCS: 93005; 99212 ==

== ENCOUNTER 2023-04-11 10:26 | Outpatient (AMB) | payer OTHER, SELFPAY ==
--- NOTE | 2023-04-11 10:39 | AM.OFFVISNUR ---
Intake Intake Visit Reasons: FLU Allergies lisinopril Adverse Reaction (Intermediate, Verified 03/27/23 08:50) high creatinine Office Procedures Flu Questionnaire Does the patient have a severe egg allergy?: No Does the patient have severe life threatening allergies?: No Does the patient have a fever or illness today?: No Has the patient ever had Guillain-Hidalgo Syndrome?: No Has the patient ever had any past reaction to a flu shot?: No Immunizations flu vacc [id number] 6mos up(PF) 60 mcg(15 mcgx4)/0.5 mL IM syringe Performing Provider: Nevaeh Aquino MD [facility] Administered by: Tatiana Mclaughlin RN on 04/11/23 10:47 Dose Route Admin Location Dispensed Lot Number Expiration Date NDC Supervisor [employer] 0.5 mL IM Left Deltoid 0.5 mL [id number] 12/03/23 24222-934-62 [employer] VIS Given Date VIS Provided VIS Publication Date 04/11/23 Single Vaccine 21 Eligibility Eligibility Date Funding Source Not [facility] Eligible 04/11/23 Private Coding Assessment & Plan Assessment & Plan Orders: Orders Influenza [id number] Immunization Today Z23 - Encounter for immunization
== END 2023-04-11 10:54 | disposition home or self-care (01) ==
PROVIDERS: PCP Internal Medicine; Visit Provider Internal Medicine
DX: Z23 Encounter for immunization (principal)
CPT/HCPCS: 90471; 90686

== ENCOUNTER 2023-05-01 15:23 | Outpatient (AMB) | payer OTHER, SELFPAY ==
--- NOTE | 2023-05-01 15:25 | A.OFFPC_ITS ---
Vital Signs 05/01/23 15:29 Height 5 ft 9 in Weight 233 lb 0.4 oz BMI 34.4 BP 130/68 Blood Pressure Location Lt brachial Position Sitting Pulse 89 Pulse Source Pulse Oximeter Pulse Oximetry (%) 95 Oxygen Delivery Method Room Air Intake Visit Reasons: 6mth f/u Title Camera Operator Required: No Allergies lisinopril Adverse Reaction (Intermediate, Verified 05/01/23 15:32) high creatinine Medication List - Last Reconciled 05/01/23 by Nevaeh Aquino MD adjuvant AS01B (PF)vial 1 of 2 (Shingrix Adjuvant Component (PF) intramuscular suspension) 0.5 mL IM ONCE 1 day ascorbate calcium (vitamin C) 500 mg PO DAILY 90 days blood sugar diagnostic (FreeStyle Lite Strips) As directed check blood sugars once a day blood-glucose meter (FreeStyle Lite Meter kit) As directed clonazepam 1 mg PO DAILY clonidine HCl 0.1 mg PO BID 90 days [email or web address],knee,reg,xlrg As directed CPAP (CPAP Machine/Device) As directed cyanocobalamin (vitamin B-12) 1,000 mcg PO DAILY 90 days cyclobenzaprine 10 mg PO TID [DIABETIC SHOES As directed] docusate sodium 100 mg PO BEDTIME donepezil 10 mg PO BEDTIME 30 days ezetimibe (Zetia) 10 mg PO DAILY ferrous sulfate (Feosol) 325 mg PO DAILY 90 days gabapentin 300 mg PO DAILY hydralazine 25 mg PO Q12H 90 days lancets (FreeStyle Lancets) As directed check the blood sugars once a day linaclotide (Linzess) 145 mcg PO DAILY memantine (Namenda) 5 mg PO QAM methylcellulose (laxative) (Fiber Therapy (methylcellulose)) 500 mg PO DAILY metoprolol succinate ER 50 mg PO DAILY nitroglycerin (Nitrostat) 0.4 mg sublingual Q5M PRN pantoprazole 40 mg PO BID polyethylene glycol 3350 (Miralax) 17 grams PO DAILY rivaroxaban (Xarelto) 20 mg PO DAILY 90 days rosuvastatin (Crestor) 40 mg PO DAILY semaglutide 1 mg (0.75 mL) subcut QWEEK 30 days topiramate 25 mg PO BID 90 days tramadol 50 mg PO TID PRN 30 days trazodone 50 mg PO BEDTIME PRN [walker with seat and wheels As directed] Tobacco use date assessed: 05/01/23 Fall risk assessment: No Falls in past year Last assessed Fall Risk: 05/01/23 Dental Screening Dental Screen Date: 05/01/23 Did you have a dental visit in the last 12 months?: No Did you have a dental problem in the last 6 months where you did not have access to dental care?: No HPI 6mth f/u HPI Details 68-year-old obese male with COPD diabete s mellitus hypercholesterolemia hypertension history of DVT coronary artery disease generalized anxiety disorder dementia coming in for follow-up December last seen. Patient is up-to-date with co lonoscopy February 22-3 years. Patient follows up Cardiology March 2023 minimal coronary artery disease history of NSTEMI 2009 patient's last blood work for cholesterol was done in October 2021 [facility] Medical History Preop exam for internal medicine Diverticulosis DM2 (diabetes mellitus, type 2) Tubular adenoma of colon Right leg DVT COPD (chronic obstructive pulmonary disease) Romero's cyst of knee Exertional chest pain Constipation Rectal bleeding History of DVT (deep vein thrombosis) Hypercholesterolemia Anemia Obstructive sleep apnea Cognitive impairment Coronary artery disease History of renal calculi Polysubstance abuse Lumbar spondylosis Hypertension Current use of anticoagulant therapy Surgical History History of heart artery stent History of endoscopy (~2020) History of cystoscopy (~2001) History of lithotripsy (~2001) History of colonoscopy (~2020) History of cardiac cath (~06/2009) History of hand surgery Family History Father No problems noted. Mother Diabetes Hypertension Stroke Family/Other No problems noted. Family/Other Leukemia Other Mental health disorder Household Members: None Housing: Apartment Are you a primary healthcare applications analyst to a significant other at home: No Do you presently have visiting nurse or other home services: Yes Alcohol intake: never Patient Tobacco Use Status: Former Tobacco user Tobacco use type: Cigarette Years Smoked: 10 years e-Cigarette/Vaping Use: Never Used Second Hand Smoke Exposure: No Advance Directives Date on File: 10/13/21 service: No Current occupational status: retired Cognitive needs: No Hearing needs: No Vision needs: No Questionnaire Thrive Questionnaire Date Thrive assessed: 09/19/22 AUDIT C Alcohol Use Questionnaire (AUDIT-C) 1. How often do you have a drink containing alcohol?: Never 3. How often do you have six or more drinks on one occasion?: Never Total Score: 0 Score Reviewed/Action Taken: No GENA-7 AMB Questionnaire GENA-7 Date GENA - 7 assessed: 09/19/22 Source: Developed by Drs. Maynor Colon, Viviana Jacobson, Dandy Garcia and colleagues, with an educational leonard from [employer]. Physical exam (Primary Care) Vital Signs: Last Vital Signs Pulse 89 05/01/23 15:29 BP 130/68 05/01/23 15:29 Pulse Ox 95 05/01/23 15:29 Oxygen Delivery Method Room Air 05/01/23 15:29 BMI result Body Mass Index 34.4 Tobacco/Smoking Status: Tobacco use Status Tobacco use date assessed 05/01/23 05/01/23 15:26 Patient Tobacco Use Status Former Tobacco user 05/01/23 15:26 Tobacco use type Cigarette 05/01/23 15:26 e-Cigarette/Vaping Use Never Used 05/01/23 15:26 Thrive Assessment: Date of Thrive Assessment Date Thrive assessed 09/19/22 05/01/23 15:26 Const General: alert; No acute distress Eyes Conjunctivae: conjunctivae normal Resp Auscultation: clear to auscultation bilaterally Cardio Rate: regular rate Rhythm: regular rhythm GI Inspection: Yes normal to inspection Extrem General: Yes normal to inspection and No edema Results AMB Hemoglobin A1c AMB Hemoglobin A1c 6.6 % Last Edit by FERNANDO Cabral on 05/01/23 15:39 Results Reviewed Results Reviewed: Laboratory Last Values Hgb A1c (Clinic) 6.6 % (4.0-6.0) H 05/01/23 15:25 Assessment and Plan Assessment & Plan (1) Type 2 diabetes mellitus with hyperglycemia: Comment: March 2020 hemoglobin A1c of 6.6 [facility] Code(s): E11.65 - Type 2 diabetes mellitus with hyperglycemia Plan: Decrease the amount of carbohydrate intake, pasta, bread, rice and potatoes are all sugar and that is aside from all the sweet stuff, remember that fruits are good but they are Sweet also. Hemoglobin A1c goal of less than 7.0. Patient is on Ozempic (2) Anemia in chronic kidney disease: Code(s): N18.9 - Chronic kidney disease, unspecified; D63.1 - Anemia in chronic kidney disease Plan: Continuing to monitor (3) Coronary artery disease: Comment: [place] July 2009 cardiac catheterization June 2009 no obstructive Code(s): I25.10 - Atherosclerotic heart disease of [place] coronary artery without angina pectoris Qualifiers: Coronary Disease-Associated Artery/Lesion type: [place] artery [place] vs. transplanted heart: [place] heart Associated angina: without angina Qualified Code(s): I25.10 - Atherosclerotic heart disease of [place] coronary artery without angina pectoris Plan: Control the cholesterol, weight, blood pressure, diabetes (4) History of DVT (deep vein thrombosis): Comment: (Hx Right leg DVT 07/2009 and Right leg DVT 08/2021) Code(s): Z86.718 - Personal history of other venous thrombosis and embolism Plan: Continue with anticoagulation (5) Hypertension: Code(s): I10 - Essential (primary) hypertension Qualifiers: Hypertension type: essential hypertension Qualified Code(s): I10 - Essential (primary) hypertension Plan: Continue with blood pressure medication. Decrease salt intake and exercise hydralazine 25 mg twice a day metoprolol 50 mg once a day (6) Hypercholesterolemia: Code(s): E78.00 - Pure hypercholesterolemia, unspecified Plan: Avoid fried foods, chicken skin, eggs, butter margarine, pastries and meat. Be it pork or beef they have a lot of cholesterol on rosuvastatin 40 mg once a day LDL goal of less than 70 (7) COPD (chronic obstructive pulmonary disease): Code(s): J44.9 - Chronic obstructive pulmonary disease, unspecified Plan: Continue with inhaler Orders: Orders AMB Hemoglobin A1c Today E11.65 - Type 2 diabetes mellitus with hyperglycemia Ferritin Today D63.1 - Anemia in chronic kidney disease, N18.9 - Chronic kidney disease, unspecified Medications: New adjuvant AS01B (PF)vial 1 of 2 (Shingrix Adjuvant Component (PF) intramuscular s uspension) 0.5 mL IM ONCE 1 day 0.5 mL 0RF adjuvant AS01B (PF)vial 1 of 2 (Shingrix Adjuvant Component (PF) intramuscular suspension) 0.5 mL IM ONCE 0.5 mL 0RF 1 day Changed From semaglutide (Ozempic) 0.5 mg (0.736 mL) subcut QWEEK 3 mL 1RF E11.65 - Type 2 diabetes mellitus with hyperglycemia To semaglutide 1 mg (0.75 mL) subcut QWEEK 30 days 3.75 mL 4RF E11.65 - Type 2 diabetes mellitus with hyperglycemia Discontinued semaglutide (Ozempic) for 4 weeks Discontinued Reason: Patient Completed Course 0.25 mg (0.368 mL) subcut QWEEK 3 mL 0RF E11.65 - Type 2 diabetes mellitus with hyperglycemia Coding Level of Care Code Est Pt Level 4 (81742) Diagnoses Type 2 diabetes mellitus with hyperglycemia E11.65 Anemia in chronic kidney disease N18.9; D63.1 Coronary artery disease involving [place] coronary artery of [place] heart without angina pectoris I25.10 Coronary Disease-Associated Artery/Lesion type: [place] artery [place] vs. transplanted heart: [place] heart Associated angina: without angina History of DVT (deep vein thrombosis) Z86.718 Essential hypertension I10 Hypertension type: essential hypertension Hypercholesterolemia E78.00 COPD (chronic obstructive pulmonary disease) J44.9
[2023-05-01 15:29] VITALS: BP 130/68; PULSE 89; O2SAT 95; BMI 34.4
== END 2023-05-01 16:06 | disposition home or self-care (01) ==
PROVIDERS: PCP Internal Medicine; Visit Provider Internal Medicine
DX: E11.65 Type 2 diabetes mellitus with hyperglycemia (principal); I10 Essential (primary) hypertension; J44.9 Chronic obstructive pulmonary disease, unspecified; I25.10 Atherosclerotic heart disease of native coronary artery without angina pectoris; Z86.718 Personal history of other venous thrombosis and embolism; E78.00 Pure hypercholesterolemia, unspecified
CPT/HCPCS: 83036; 99214

== ENCOUNTER 2023-05-04 07:39 | Outpatient (REF) | payer OTHER, SELFPAY ==
[2023-05-04 08:00] LABS: MANUAL DIFF FLAG NO
[2023-05-04 08:15] LABS: Basophils Absolute Auto 0.1 X10*3/uL (0.0-0.2); Basophils Percent Auto 0.7 % (0-2); Eosinophils Absolute Auto 0.3 X10*3/uL (0.0-0.4); Hematocrit 42.2 % (42.0-52.0); Hemoglobin 13.1 g/dl (14.0-18.0); Imm Gran Abs Auto 0.02 X10*3/uL (0.00-0.03); Imm Gran Pct Auto 0.3 % (0.0-0.4); Lymphocytes Absolute Auto 3.1 X10*3/uL (1.2-4.9); Lymphocytes Percent Auto 43.8 % (20-40); Mean Corpuscular Hemoglobin 27.8 pg (27.0-33.0); Mean Corpuscular Volume 89.6 fL (80.0-98.0); Mean Platelet Volume 10.3 fL (9.4-12.4); Monocytes Absolute Auto 0.5 X10*3/uL (0.1-1.2); Monocytes Percent Auto 7.2 % (2-11); Neutrophils Absolute Auto 3.1 x10*3/uL (2.0-8.3); Platelet Count 192 X10*3/uL (160-400); Red Blood Count 4.71 X10*6/uL (4.60-5.80); Red Cell Distribution Width 13.3 % (11.0-16.0); White Blood Count 7.1 X10*3/uL (4.8-10.8)
[2023-05-04 08:27] LABS: Estimated Average Glucose 120 mg/dL; Hemoglobin A1c % 5.8 % (<6.0)
[2023-05-04 08:50] LABS: Alanine Aminotransferase 34 U/L (0-40); Alkaline Phosphatase 70 U/L (39-117); Anion Gap 11 (12-20); Aspartate Amino Transferase 29 U/L (5-37); Bilirubin Total 0.8 mg/dL (0.0-1.0); Blood Urea Nitrogen 15 mg/dL (9-16); Calcium 9.4 mg/dL (8.4-10.2); Carbon Dioxide 27 mmol/L (22-29); Chloride 107 mmol/L (96-108); Cholesterol 102 mg/dL (<200); Estimated Glomerular Filt Rate > 60; Glucose Random 100 mg/dL (60-115); HDL Cholesterol 39 mg/dL (>40); LDL Cholesterol Calculated 42 mg/dL (<100); Potassium 4.3 mmol/L (3.3-5.1); Sodium 141 mmol/L (135-145); Total Protein 7.5 g/dL (6.5-8.0); Triglycerides 106 mg/dL (<150)
[2023-05-04 09:21] LABS: Thyroid Stimulating Hormone 1.56 uIU/mL (0.32-4.0)
[2023-05-04 09:30] LABS: Creatinine Urine 264.11 mg/dL; Microalbum/Creatinine Ratio Ur 4.5 ug/mg cr (<30)
[2023-05-04 09:31] LABS: Folate 7.9 ng/mL (> or = 4.0); Prostate Specific Antigen Scr 0.36 ng/mL (<0.05-4.0); Vitamin B12 1141 pg/mL (200-900)
== END 2023-05-04 07:40 | disposition home or self-care (01) ==
LOC: HO.LAB 07:39
PROVIDERS: PCP Internal Medicine; Visit Provider Internal Medicine
DX: Z12.5 Encounter for screening for malignant neoplasm of prostate (principal); E11.65 Type 2 diabetes mellitus with hyperglycemia; E78.00 Pure hypercholesterolemia, unspecified
CPT/HCPCS: 36415; 80053; 80061; 82043; 82570; 82607; 82746; 83036; 84153; 84439; 84443; 85025

== ENCOUNTER 2023-06-14 11:02 | Outpatient (AMB) | payer OTHER, SELFPAY ==
--- NOTE | 2023-06-14 11:09 | A.OFFVIS_ITS ---
Intake Vital Signs 06/14/23 11:10 Height 5 ft 9 in Weight 229 lb BMI 33.8 Pulse 78 Pulse Source Pulse Oximeter Pulse Oximetry (%) 96 Oxygen Delivery Method Room Air Intake Visit Reasons: COPD Ross Lift Operator Required: No Allergies lisinopril Adverse Reaction (Intermediate, Verified 06/14/23 11:12) high creatinine HPI HPI Comments History of Present Illness Details The patient is a 68-year-old gentleman with a known history of CAD in addition to tobacco dependency in the past who apparently has been complaining of worsening dyspnea on exertion with mild activity. The patient states that even going up a flight of stairs he gets very winded. He needs to usually take a break after doing so. He has been evaluated by other specialists. He was noted to be hypoxic. Therefore he was referred to Pulmonary. Part of the workup included a chest x-ray which I personally reviewed demonstrating no acute disease. In the office we did go for 6 minutes walk test. Unfortunately the patient's heart rate increased to 160 with minimal activity and he came short of breath. His pulse ox did drop the lowest to 91% therefore he did not qualify for oxygen at this time. It seems that his respiratory symptoms worsen when the heart rate increased dramatically. He does not have a history of atrial fibrillation at this time. Also to note the patient carries a diagnosis of DVT. The patient has been taken off anticoagulation at this time. I will have him undergo repeat EKG in addition to blood work Including a D-dimer. 07/09/2021 the patient has a telephone v isit today. Apparently the patient has been having worsening lower extremity swelling. He did go to the ER yesterday a nd he was diagnosed with another recurrent DVT. He was given a prescription for either Eliquis or Xarelto. However, talking to the daughter and the patient did have not been able to spanish moss picker the medication at the pharmacy. This is be significantly alarming. He is complaining of shortness of breath. I did emphasize the daughter that if the medication is not available as of yet at the pharmacy that he goes back to the ER to be evaluated further for thromboembolic disease in the chest area and also to be provided with the anticoagulation medication that he requires urgently. In the office he did try to perform pulmonary function studies but he had a hard time doing it so he could not completed. The patient and or his daughter will call back the to the office of the running into any difficulties with his respiratory issues. But I did again emphasize that any worsening symptoms he needs to go back to the ER to be evaluated for further clot burden. 10/01/2021 the patient is here for pulmonary follow-up visit. Overall the patient has been doing better. He continues on the anticoagulation with good effect. Heart rate seems to be better controlled now and therefore his breathing also has improved. His like however still swollen still bothersome to ambulate. Will go ahead make sure that he gets a repeat ultrasound to make sure the clots clear. He may be left with post thrombotic syndrome and therefore the swelling of the leg may be something more chronic. At this point the patient is not using any maintenance inhalers. I will make sure he has a rescue inhaler that he can have a hand as needed. Otherwise will follow-up in 6 months. 05/25/2022 the patient is here for pulmo giovannay follow-up visit. The patient overall has been doing well. Respiratory status has been stable. He does not have a rescue inhaler and does not feel like he needs 1. He has been taking his anticoagulation for DVT. His last ultrasound demonstrated a chronic clot in the right popliteal vein. Will have him repeat the ultrasound to make sure that there is resolution of the clot. In addition to that he has underlying sleep apnea. He has not been using the CPAP because he is missing supplies. Explained to him that he is not going to get supplies if he is not using it. Therefore, in order for him to get supplies again in prior any other sleep study. He denies any significant daytime drowsiness at this time. His [place] score is 6/24. Explained to him that his cardiovascular issues are unstable and if he develops increasing daytime drowsiness he should have a repeat sleep study as the CPAP therapy will help decrease cardiovascular risks. The patient does not have any recent imaging studies to review otherwise from the chest. Will follow-up in 6-8 months. The patient will call the office if he consider having a sleep study done earlier than that. 06/14/2023 the patient is here for pulmon sukhdev follow-up visit. Overall the patient is doing well. He still complaining of right lower extremity swelling. He also gets some neuropathy like discomfort both extremities. The patient had a right-sided lower extremity Doppler back in July 2022 demonstrating nonocc lusive clot. He has not had any further imaging since then. He continues on Xarelto. He will be on it likely lifelong. The patient likely has some component of post thrombotic syndrome. He does elevate the lower extremities when he sleeps. As far as his sleep is well. The patient does wake up rested. His [place] score still 6/24. He has not use CPAP. Does not appear to need at this time will go ahead and repeat his ultrasound to make sure the clot is gone. The patient understands that he may have some recanalization of the vessel but indeed the organized clot may stay present. The patient is otherwise without other complaints will follow-up next year. [facility] Medical History Preop exam for internal medicine Diverticulosis DM2 (diabetes mellitus, type 2) Tubular adenoma of colon Right leg DVT COPD (chronic obstructive pulmonary disease) Romero's cyst of knee Exertional chest pain Constipation Rectal bleeding History of DVT (deep vein thrombosis) Hypercholesterolemia Anemia Obstructive sleep apnea Cognitive impairment Coronary artery disease History of renal calculi Polysubstance abuse Lumbar spondylosis Hypertension Current use of anticoagulant therapy Surgical History History of heart artery stent History of endoscopy (~2020) History of cystoscopy (~2001) History of lithotripsy (~2001) History of colonoscopy (~2020) History of cardiac cath (~06/2009) History of hand surgery Family History Father No problems noted. Mother Diabetes Hypertension Stroke Family/Other No problems noted. Family/Other Leukemia Other Mental health disorder Social History Household Members: None Housing: Apartment Are you a primary healthcare analyst to a significant other at home: No Do you presently have visiting nurse or other home services: Yes Alcohol intake: never Patient Tobacco Use Status: Former Tobacco user Tobacco use type: Cigarette Years Smoked: 10 years e-Cigarette/Vaping Use: Never Used Second Hand Smoke Exposure: No Advance Directives Date on File: 10/13/21 service: No Current occupational status: retired Cognitive needs: No Hearing needs: No Vision needs: No Review of Systems Const Denies daytime sleepiness, Denies weight gain and Denies weight loss ENT Reports no additional complaints, Denies dysphagia and Denies odynophagia Card Reports no additional complaints and Reports leg edema Resp Reports no additional complaints GI Denies abdominal pain, Denies belching, Denies melena, Denies bloating, Reports constipation, Denies dysphagia, Denies excessive flatus, Denies dyspepsia, Denies heartburn, Denies diarrhea, Denies loose stools, Denies nausea, Denies odynophagia and Denies vomiting Reports no additional complaints Musc Reports no additional complaints and Reports tingling Neuro Reports tingling Psych Reports no additional complaints Endo Reports no additional complaints Physical Exam Vital Signs: Last Vital Signs Pulse 78 06/14/23 11:10 Pulse Ox 96 06/14/23 11:10 Oxygen Delivery Method Room Air 06/14/23 11:10 BMI result Body Mass Index 33.8 Const General: alert Neck Neck: Yes normal visual inspection, Yes full ROM and Yes no lymphadenopathy Chest Chest palpation & inspection: normal inspection of the chest Resp Auscultation: clear to auscultation bilaterally and no wheezes Cardio Rate: regular rate Rhythm: regular rhythm Heart sounds: S1 normal heart sound present and S2 normal heart sound present GI Palpation (GI): Soft to palpation and nontender Auscultation: normal bowel sounds Skin General skin exam: rashes and/or lesions noted Extrem General: Yes edema Assessment & Plan Assessment & Plan (1) SOB (shortness of breath): Code(s): R06.02 - Shortness of breath (2) COPD (chronic obstructive pulmonary disease): Code(s): J44.9 - Chronic obstructive pulmonary disease, unspecified Qualifiers: COPD type: chronic bronchitis Chronic bronchitis type: simple Qualifi ed Code(s): J41.0 - Simple chronic bronchitis (3) Right leg DVT: Code(s): I82.401 - Acute embolism and thrombosis of unspecified deep veins of right lower extremity Qualifiers: Affected thrombotic vein of extremity: other lower extremity vein C hronicity: chronic Qualified Code(s): I82.591 - Chronic embolism and thrombosis of other specified deep vein of right lower extremity Plan Continue Xarelto Repeat LE doppler consider VIVIANE as needed F/U 12 months Orders: Orders US venous duplex LE RT Today Z86.718 - Personal history of other venous thrombosis and embolism Coding Level of Care Code Est Pt Level 4 (80754) Diagnoses SOB (shortness of breath) R06.02 Simple chronic bronchitis J41.0 COPD type: chronic bronchitis Chronic bronchitis type: simple Chronic deep vein thrombosis (DVT) of other vein of right lower extremity I82.591 Affected thrombotic vein of extremity: other lower extremity vein Chronicity: chronic Time Spent (min) 16
[2023-06-14 11:10] VITALS: PULSE 78; O2SAT 96; BMI 33.8
== END 2023-06-14 11:31 | disposition home or self-care (01) ==
PROVIDERS: PCP Internal Medicine; Visit Provider Hospitalist
DX: R06.02 Shortness of breath (principal); J41.0 Simple chronic bronchitis; I82.591 Chronic embolism and thrombosis of other specified deep vein of right lower extremity
CPT/HCPCS: 99214

== ENCOUNTER → 2023-06-14 11:02 | Outpatient (BNVA) | payer OTHER, SELFPAY | PROVIDERS: PCP Internal Medicine; Visit Provider Hospitalist | DX: I82.591 Chronic embolism and thrombosis of other specified deep vein of right lower extremity (principal); J41.0 Simple chronic bronchitis; R06.02 Shortness of breath | CPT/HCPCS: 99212 ==

== ENCOUNTER 2023-06-16 08:33 | Outpatient (AMB) | payer OTHER, SELFPAY ==
--- NOTE | 2023-06-16 08:48 | A.OFFVIS_ITS ---
Intake Vital Signs 06/16/23 08:51 Height 5 ft 9 in Weight 229 lb BMI 33.8 BP 119/61 Blood Pressure Location Lt brachial Position Sitting Pulse 65 Intake Visit Reasons: 1 year follow up Intake Note: Patient yearly follow up Constipation. Patient denies any GI issues , patient wanted you to cancel the miralax on the pharmacy. Well[place] Pumper Required: No Accompanied by: Daughter Allergies lisinopril Adverse Reaction (Intermediate, Verified 06/16/23 08:47) high creatinine HPI 1 year follow up HPI Details LAST VISIT Diverticulosis Continue MiraLax and Colace. Discussed increasing fiber in his diet and drinking plenty fluids. Chronic idiopathic constipation Continue MiraLax and colace. Patient reports that he moves his bowels better, normal bowel sounds no distension. I will see him in 1 year, sooner on as needed basis. Patient is agreeable to this plan and verbalizes understanding of instructions. He was given the opportunity to ask questions and all questions answered. ? Thank you for allowing me to participate in his care Plan Medications Changed From polyethylene glycol 3350 17 grams PO DAILY 510 grams 2RF To polyethylene glycol 3350 (Miralax) 17 grams PO DAILY 510 grams 4RF Refilled docusate sodium 100 mg PO BEDTIME 90 caps 4RF K59.00 TODAY'S VISIT Patient is here today for follow-up. Patient is accompanied by his daughter who is translating for us per patient's request patient reports to be feeling well. Moving his bowels without any issues. Taking MiraLax in the morning and occasionally Colace at bedtime. Patient denies any melena, hematochezia, unintentional weight loss or ribbon like stools. Patient denies any dyspepsia, dysphagia or odynophagia. Patient is taking pantoprazole and reports that his symptoms of acid reflux are suppressed. Patient started taking Ozempic to better control his diabetes and for weight loss. Patient reports that he has been feeling well and tolerating it well. [facility] Medical History Preop exam for internal medicine Diverticulosis DM2 (diabetes mellitus, type 2) Tubular adenoma of colon Right leg DVT COPD (chronic obstructive pulmonary disease) Romero's cyst of knee Exertional chest pain Constipation Rectal bleeding History of DVT (deep vein thrombosis) Hypercholesterolemia Anemia Obstructive sleep apnea Cognitive impairment Coronary artery disease History of renal calculi Polysubstance abuse Lumbar spondylosis Hypertension Current use of anticoagulant therapy Surgical History History of heart artery stent History of endoscopy (~2020) History of cystoscopy (~2001) History of lithotripsy (~2001) History of colonoscopy (~2020) History of cardiac cath (~06/2009) History of hand surgery Family History Father No problems noted. Mother Diabetes Hypertension Stroke Family/Other No problems noted. Family/Other Leukemia Other Mental health disorder Social History Household Members: None Housing: Apartment Are you a primary medicare sales executive to a significant other at home: No Do you presently have visiting nurse or other home services: Yes Alcohol intake: never Patient Tobacco Use Status: Former Tobacco user Tobacco use type: Cigarette Years Smoked: 10 years e-Cigarette/Vaping Use: Never Used Second Hand Smoke Exposure: No Advance Directives Date on File: 10/13/21 service: No Current occupational status: retired Cognitive needs: No Hearing needs: No Vision needs: No Review of Systems Const Denies weight gain and Denies weight loss ENT Reports no additional complaints, Denies dysphagia and Denies odynophagia Card Reports no additional complaints Resp Reports no additional complaints GI Denies abdominal pain, Denies belching, Denies melena, Denies bloating, Denies change in bowel habits, Denies dysphagia, Denies excessive flatus, Denies dyspepsia, Denies heartburn, Denies diarrhea, Denies loose stools, Denies nausea, Denies odynophagia and Denies vomiting Reports no additional complaints Musc Reports no additional complaints Neuro Reports no additional complaints Psych Reports no additional complaints Endo Reports no additional complaints Physical Exam Vital Signs: Last Vital Signs Pulse 65 06/16/23 08:51 BP 119/61 06/16/23 08:51 BMI result Body Mass Index 33.8 Const General: healthy appearing, no acute distress and well developed Nutritional Appearance: obese Orientation/consciousness: patient oriented x3 Resp Effort & Inspection: normal respiratory effort, able to speak in complete sentences, no tracheal deviation and symmetric chest movement Auscultation: clear to auscultation bilaterally Cardio Rate: regular rate GI Inspection: Yes normal to inspection, No distended and Yes obesity Palpation (GI): Soft to palpation, not firm, nontender and No hepatosplenomegaly present Auscultation: normal bowel sounds General: Yes no CVA tenderness Back/Spine/Pelvis Back: no CVA tenderness Skin General skin exam: elasticity normal, turgor normal and dry skin Neuro General: patient oriented x3 Psych Appearance: grossly normal Mental Status: mental status grossly normal Assessment & Plan Assessment & Plan (1) Diverticulosis: Code(s): K57.90 - Diverticulosis of intestine, part unspecified, without perforation or abscess without bleeding (2) Chronic idiopathic constipation: Code(s): K59.04 - Chronic idiopathic constipation (3) GERD (gastroesophageal reflux disease): Code(s): K21.9 - Gastro-esophageal reflux disease without esophagitis Qualifiers: Esophagitis presence: esophagitis presence not specified Qualified Code(s): K21.9 - Gastro-esophageal reflux disease without esophagitis Plan Patient will continue taking MiraLax daily. He is currently area on Ozempic and is losing weight. Patient denies any epigastric pain or discomfort. Denies dyspepsia, dysphagia or odynophagia. Patient denies any melena, hematochezia, unintentional weight loss or ribbon like stools. Patient will be due to go for colonoscopy in February of 2025. Both patient and his daughter are agreeable to plan of care and verbalizes understanding of instructions. They were given the opportunity to ask questions and all questions answered. Thank you for allowing me to participate in his care Medications: Discontinued polyethylene glycol 3350 (Miralax) Discontinued Reason: Doctor's Order 17 grams PO DAILY 510 grams 4RF Coding Level of Care Code Est Pt Level 3 (15736) Diagnoses Diverticulosis K57.90 Chronic idiopathic constipation K59.04 Gastroesophageal reflux disease, unspecified whether esophagitis present K21.9 Esophagitis presence: esophagitis presence not specified Time Spent (min) 25 Comment 15 minutes spent with patient and additional 10 minutes spent reviewing his troy rds
[2023-06-16 08:51] VITALS: BP 119/61; PULSE 65; BMI 33.8
== END 2023-06-16 09:15 | disposition home or self-care (01) ==
PROVIDERS: PCP Internal Medicine; Visit Provider Nurse Practitioner Family
DX: K57.90 Diverticulosis of intestine, part unspecified, without perforation or abscess without bleeding (principal); K59.04 Chronic idiopathic constipation; K21.9 Gastro-esophageal reflux disease without esophagitis
CPT/HCPCS: 99213

== ENCOUNTER → 2023-06-16 08:33 | Outpatient (BNVA) | payer OTHER, SELFPAY | PROVIDERS: PCP Internal Medicine; Visit Provider Nurse Practitioner Family | DX: K57.90 Diverticulosis of intestine, part unspecified, without perforation or abscess without bleeding (principal); K59.04 Chronic idiopathic constipation; K21.9 Gastro-esophageal reflux disease without esophagitis; Z79.899 Other long term (current) drug therapy | CPT/HCPCS: 99212 ==

== ENCOUNTER 2023-07-06 13:23 | Outpatient (REF) | payer OTHER, SELFPAY ==
--- NOTE | ~2023-07-06 | US_ITS ---
EXAMINATION: US VENOUS ULTRASOUND WITH DOPPLER LOWER EXTREMITY, RIGHT CLINICAL INFORMATION: History of DVT. COMPARISON: Venous ultrasound 07/18/2022. TECHNIQUE: Ultrasound of the deep veins is performed from the hip to the calf with compression sonography and color and pulse Doppler assessment. Spectral analysis with color-flow imaging is performed. FINDINGS: There is a linear web seen in the popliteal vein with partial noncompression which is similar to the prior study and consistent with sequela of previous clot. Otherwise, there is normal venous compression and respiratory variation and augmented flow. The visualized common femoral vein, superficial femoral vein, profunda femoral vein, and the trifurcation region shows no evidence of acute deep venous thrombosis. US/US venous duplex LE RT IMPRESSION: No acute DVT demonstrated in the right lower extremity. 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
== END 2023-07-06 13:24 | disposition home or self-care (01) ==
LOC: HO.US 13:23
PROVIDERS: PCP Internal Medicine; Visit Provider Hospitalist
DX: Z86.718 Personal history of other venous thrombosis and embolism (principal)
CPT/HCPCS: 93971

== ENCOUNTER 2023-08-08 10:21 | Outpatient (AMB) | payer OTHER, SELFPAY ==
--- NOTE | 2023-08-08 10:21 | MHC.PC.OV ---
Intake Visit Reasons: DM/[phone] Intake Note: Patient is here to follow up Paper Hanger Required: No Accompanied by: Daughter Allergies lisinopril Adverse Reaction (Intermediate, Verified 06/16/23 08:47) high creatinine Tobacco use date assessed: 08/08/23 Fall risk assessment: No Falls in past year Last assessed Fall Risk: 08/08/23 Dental Screening Dental Screen Date: 08/08/23 HPI DM/[phone] HPI Details 68-year-old obese male with diabetes mellitus, anemia of chronic disease coronary artery disease history of DVT on anticoagulation hypertension hypercholesterolemia COPD last seen in April 2023. Patient's colonoscopy is up-to-date February 2022. Ultrasound done of the lower extremity in July 2023 showing no acute DVT of the right lower extremity does have chronic web in the popliteal vein consistent with the sequelae of previous DVT. Patient also has followed up with Gastroenterology for the constipation on MiraLax.. Patient also has followed up with Pulmonary in June for the COPD continuing with albuterol. Patient has been doing good otherwise no nausea no vomiting no chest pains no shortness a breath no bowel bladder symptoms. [facility] Medical History Preop exam for internal medicine Diverticulosis DM2 (diabetes mellitus, type 2) Tubular adenoma of colon Right leg DVT COPD (chronic obstructive pulmonary disease) Romero's cyst of knee Exertional chest pain Constipation Rectal bleeding History of DVT (deep vein thrombosis) Hypercholesterolemia Anemia Obstructive sleep apnea Cognitive impairment Coronary artery disease History of renal calculi Polysubstance abuse Lumbar spondylosis Hypertension Current use of anticoagulant therapy Surgical History History of heart artery stent History of endoscopy (~2020) History of cystoscopy (~2001) History of lithotripsy (~2001) History of colonoscopy (~2020) History of cardiac cath (~06/2009) History of hand surgery Family History Father No problems noted. Mother Diabetes Hypertension Stroke Family/Other No problems noted. Family/Other Leukemia Other Mental health disorder Social History Household Members: None Housing: Apartment Are you a primary child care associate teacher to a significant other at home: No Do you presently have visiting nurse or other home services: Yes Alcohol intake: never Patient Tobacco Use Status: Former Tobacco user Tobacco use type: Cigarette Years Smoked: 10 years e-Cigarette/Vaping Use: Never Used Second Hand Smoke Exposure: No Advance Directives Date on File: 10/13/21 service: No Current occupational status: retired Cognitive needs: No Hearing needs: No Vision needs: No Questionnaire Thrive Questionnaire Date Thrive assessed: 08/08/23 I am a: Patient What is your living situation today?: I have a steady place to live Within the past 12 months, did the food you bought not last and you didn't have the money to get more?: Never true Within the past 12 months, did you worry whether your food would run out before you got money to buy more?: Never true Do you have trouble paying for medicines?: No Do you have trouble getting transportation to medical appointments?: No Do you have trouble paying your heating and electricity bill?: No Do you have trouble taking care of your child, family member or friend?: No Do you have trouble with day-to-day activities such as bathing, preparing meals, shopping, managing finances, etc.?: No Are you currently unemployed and looking for a job?: No Are you interested in more education?: No Please select the resources that you would like help with: None THRIVE Score: 0 AUDIT C Alcohol Use Questionnaire (AUDIT-C) 1. How often do you have a drink containing alcohol?: Never 3. How often do you have six or more drinks on one occasion?: Never Total Score: 0 Score Reviewed/Action Taken: No GENA-7 AMB Questionnaire GENA-7 Date GENA - 7 assessed: 08/08/23 Source: Developed by Drs. Maynor Colon, Viviana Jacobson, Dandy Garcia and colleagues, with an educational leonard from [employer]. Physical exam (Primary Care) Tobacco/Smoking Status: Tobacco use Status Tobacco use date assessed 08/08/23 08/08/23 10:24 Patient Tobacco Use Status Former Tobacco user 08/08/23 10:24 Tobacco use type Cigarette 08/08/23 10:24 e-Cigarette/Vaping Use Never Used 08/08/23 10:24 Thrive Assessment: Date of Thrive Assessment Date Thrive assessed 08/08/23 08/08/23 10:24 Telehealth Telehealth Location of provider rendering services: practice address Location of patient: address on file Patient Identification confirmed using: Name, : Yes Telehealth method: voice only (IPHONE. pt daughter stated voice is best due to pt not being able to work with video call. ) Patient verbally consented to treatment: Yes Patient verbally consented to billing insurance company: Yes Patient informed of any privacy concerns related to visit: Yes Minutes spent on Phone/Video with Pt.: 25 Assessment and Plan Assessment & Plan (1) Tubular adenoma of colon: Comment: February 2022 Code(s): D12.6 - Benign neoplasm of colon, unspecified Plan: Patient follows up with Gastroenterology and due for colonoscopy in 2024 (2) Type 2 diabetes mellitus with hyperglycemia: Comment: March 2020 hemoglobin A1c of 6.6 [facility] Code(s): E11.65 - Type 2 diabetes mellitus with hyperglycemia Plan: Decrease the amount of carbohydrate intake, pasta, bread, rice and potatoes are all sugar and that is aside from all the sweet stuff, remember that fruits are good but they are Sweet also. Hemoglobin A1c goal of less than 7.0. Patient on semaglutide only (3) Anemia in chronic kidney disease: Code(s): N18.9 - Chronic kidney disease, unspecified; D63.1 - Anemia in chronic kidney disease Plan: Continuing to monitor (4) Coronary artery disease: Comment: [place] July 2009 cardiac catheterization June 2009 no obstructive Code(s): I25.10 - Atherosclerotic heart disease of [place] coronary artery without angina pectoris Qualifiers: Coronary Disease-Associated Artery/Lesion type: [place] artery [place] vs. transplanted heart: [place] heart Associated angina: without angina Qualified Code(s): I25.10 - Atherosclerotic heart disease of [place] coronary artery without angina pectoris Plan: Control the cholesterol, weight, blood pressure, diabetes patient presently on anticoagulation with Xarelto (5) History of DVT (deep vein thrombosis): Comment: (Hx Right leg DVT 07/2009 and Right leg DVT 08/2021) Code(s): Z86.718 - Personal history of other venous thrombosis and embolism Plan: Presently on anticoagulation with Xarelto (6) Hypertension: Code(s): I10 - Essential (primary) hypertension Qualifiers: Hypertension type: essential hypertension Qualified Code(s): I10 - Essential (primary) hypertension Plan: Continue with blood pressure medication. Decrease salt intake and exercise continuing with metoprolol 50 mg once a day hydralazine 25 mg twice a day (7) Hypercholesterolemia: Code(s): E78.00 - Pure hypercholesterolemia, unspecified Plan: Avoid fried foods, chicken skin, eggs, butter margarine, pastries and meat. Be it pork or beef they have a lot of cholesterol LDL goal of less than 70 and triglyceride of less than 150 on Zetia 10 mg once a day and rosuvastatin 40 mg once a day (8) COPD (chronic obstructive pulmonary disease): Code(s): J44.9 - Chronic obstructive pulmonary disease, unspecified Qualifiers: COPD type: chronic bronchitis Chronic bronchitis type: simple Qualified Code(s): J41.0 - Simple chronic bronchitis Plan: Patient follows up with Pulmonary continuing with rescue inhaler as needed (9) Generalized anxiety disorder: Code(s): F41.1 - Generalized anxiety disorder Plan: Continue with present medication Coding Level of Care Code Tele Est Pt Level 4 (04967) Diagnoses Tubular adenoma of colon D12.6 Type 2 diabetes mellitus with hyperglycemia E11.65 Anemia in chronic kidney disease N18.9; D63.1 Coronary artery disease involving [place] coronary artery of [place] heart without angina pectoris I25.10 Coronary Disease-Associated Artery/Lesion type: [place] artery [place] vs. transplanted heart: [place] heart Associated angina: without angina History of DVT (deep vein thrombosis) Z86.718 Essential hypertension I10 Hypertension type: essential hypertension Hypercholesterolemia E78.00 Simple chronic bronchitis J41.0 COPD type: chronic bronchitis Chronic bronchitis type: simple Generalized anxiety disorder F41.1
== END 2023-08-08 16:05 | disposition home or self-care (01) ==
LOC: HO.HMGH 10:21
PROVIDERS: PCP Internal Medicine; Visit Provider Internal Medicine
DX: I12.9 Hypertensive chronic kidney disease with stage 1 through stage 4 chronic kidney disease, or unspecified chronic kidney disease (principal); E11.65 Type 2 diabetes mellitus with hyperglycemia; J41.0 Simple chronic bronchitis; N18.9 Chronic kidney disease, unspecified; D12.6 Benign neoplasm of colon, unspecified; D63.1 Anemia in chronic kidney disease; I25.10 Atherosclerotic heart disease of native coronary artery without angina pectoris; Z86.718 Personal history of other venous thrombosis and embolism; E78.00 Pure hypercholesterolemia, unspecified; F41.1 Generalized anxiety disorder
CPT/HCPCS: 99442

== ENCOUNTER 2023-11-15 09:58 | Outpatient (AMB) | payer OTHER, SELFPAY ==
--- NOTE | 2023-11-15 10:29 | MHC.PC.OV ---
Vital Signs 11/15/23 10:30 Height 5 ft 9 in Weight 99.337 kg BMI 32.3 BP 136/70 Blood Pressure Location Lt brachial Position Sitting Pulse 80 Pulse Source Pulse Oximeter Pulse Oximetry (%) 98 Oxygen Delivery Method Room Air Intake Visit Reasons: DM Allergies lisinopril Adverse Reaction (Intermediate, Verified 11/15/23 10:30) high creatinine Tobacco use date assessed: 08/08/23 Fall risk assessment: No Falls in past year Last assessed Fall Risk: 11/15/23 Dental Screening Dental Screen Date: 08/08/23 HPI DM HPI Details 68-year-old obese male with controlled diabetes mellitus, coronary artery disease history of DVT on Xarelto hypertension hypercholesterolemia COPD and generalized anxiety disorder last seen in 08/23/2023 patient is up-to-date with colonoscopy. hit R leg on bed and sustained a wound - presently scabbed and the redness is better. weight good with semaglutide PFSH Medical History Preop exam for internal medicine Diverticulosis DM2 (diabetes mellitus, type 2) Tubular adenoma of colon Right leg DVT COPD (chronic obstructive pulmonary disease) Romero's cyst of knee Exertional chest pain Constipation Rectal bleeding History of DVT (deep vein thrombosis) Hypercholesterolemia Anemia Obstructive sleep apnea Cognitive impairment Coronary artery disease History of renal calculi Polysubstance abuse Lumbar spondylosis Hypertension Current use of anticoagulant therapy Surgical History History of heart artery stent History of endoscopy (~2020) History of cystoscopy (~2001) History of lithotripsy (~2001) History of colonoscopy (~2020) History of cardiac cath (~06/2009) History of hand surgery Family History Father No problems noted. Mother Diabetes Hypertension Stroke Family/Other No problems noted. Family/Other Leukemia Other Mental health disorder Social History Household Members: None Housing: Apartment Are you a primary pediatric acute care unit nurse to a significant other at home: No Do you presently have visiting nurse or other home services: Yes Alcohol intake: never Patient Tobacco Use Status: Former Tobacco user Tobacco use type: Cigarette Years Smoked: 10 years e-Cigarette/Vaping Use: Never Used Second Hand Smoke Exposure: No Advance Directives Date on File: 10/13/21 service: No Current occupational status: retired Cognitive needs: No Hearing needs: No Vision needs: No Questionnaire PHQ-9 Over the last 2 weeks, how often have you been bothered by any of the following problems? 1. Little interest or pleasure in doing things: several days 2. Feeling down, depressed, or hopeless: several days 3. Trouble falling or staying asleep, or sleeping too much: several days 4. Feeling tired or having little energy: several days 5. Poor appetite or overeating: several days 6. Feeling bad about yourself - or that you are a failure or have let yourself or your family down: several days 7. Trouble concentrating on things, such as reading the newspaper or watching television: not at all 8. Moving or speaking so slowly that other people could have noticed. Or the opposite - being so fidgety or restless that you have been moving around a lot more than usual: not at all 9. Thoughts that you would be better off or of hurting yourself in some way: not at all Total score: 6 Depression Screening Interpretation: Positive Depression Screening Done: Yes Source: Developed by Drs. Maynor Colon, Viviana Jacobson, Dandy Garcia and colleagues, with an educational leonard from [employer]. Thrive Questionnaire Date Thrive assessed: 08/08/23 AUDIT C Alcohol Use Questionnaire (AUDIT-C) 1. How often do you have a drink containing alcohol?: Never 3. How often do you have six or more drinks on one occasion?: Never Total Score: 0 Score Reviewed/Action Taken: No GENA-7 AMB Questionnaire GENA-7 Date GENA - 7 assessed: 08/08/23 Source: Developed by Drs. Maynor Colon, Dandy Serrano and colleagues, with an educational leonard from [employer]. Physical exam (Primary Care) Vital Signs: Last Vital Signs Pulse 80 11/15/23 10:30 BP 136/70 11/15/23 10:30 Pulse Ox 98 11/15/23 10:30 Oxygen Delivery Method Room Air 11/15/23 10:30 BMI result Body Mass Index 32.3 Tobacco/Smoking Status: Tobacco use Status Tobacco use date assessed 08/08/23 11/15/23 10:31 Patient Tobacco Use Status Former Tobacco user 11/15/23 10:31 Tobacco use type Cigarette 11/15/23 10:31 e-Cigarette/Vaping Use Never Used 11/15/23 10:31 PHQ-9: PHQ-9 Score PHQ-9: Total score 6 11/15/23 10:39 Depression Screening Interpretation: Positive Thrive Assessment: Date of Thrive Assessment Date Thrive assessed 08/08/23 11/15/23 10:31 Const General: alert; No acute distress Eyes Conjunctivae: conjunctivae normal Resp Auscultation: clear to auscultation bilaterally Cardio Rate: regular rate Rhythm: regular rhythm GI Inspection: Yes normal to inspection Extrem General: Yes normal to inspection and No edema Results AMB Hemoglobin A1c AMB Hemoglobin A1c 5.7 % Last Edit by Ofelia Guzman CMA on 11/15/23 10:54 Assessment and Plan Assessment & Plan (1) Type 2 diabetes mellitus with hyperglycemia: Comment: March 2020 hemoglobin A1c [facility] 6.6 [facility] Code(s): E11.65 - Type 2 diabetes mellitus with hyperglycemia Plan: Decrease the amount of carbohydrate intake, pasta, bread, rice and potatoes are all sugar and that is aside from all the sweet stuff, remember that fruits are good but they are Sweet also. Hemoglobin A1c goal of less than 7.0 patient is on semaglutide (2) Hypertension: Code(s): I10 - Essential (primary) hypertension Qualifiers: Hypertension type: essential hypertension Qualified Code(s): I10 - Essential (primary) hypertension Plan: Continue with blood pressure medication. Decrease salt intake and exercise takes metoprolol 50 mg once a day hydralazine 25 mg twice a day (3) Hypercholesterolemia: Code(s): E78.00 - Pure hypercholesterolemia, unspecified Plan: Avoid fried foods, chicken skin, eggs, butter margarine, pastries and meat. Be it pork or beef they have a lot of cholesterol on rosuvastatin 40 mg once a day LDL goal of less than 70 and triglyceride of less than 150 (4) History of DVT (deep vein thrombosis): Comment: (Hx Right leg DVT 07/2009 and Right leg DVT 08/2021) Code(s): Z86.718 - Personal history of other venous thrombosis and embolism Plan: Continuing with anticoagulation with Xarelto continue to monitor renal function (5) Coronary artery disease: Comment: [place] July 2009 cardiac catheterization June 2009 no obstructive Code(s): I25.10 - Atherosclerotic heart disease of [place] coronary artery without angina pectoris Qualifiers: Associated angina: without angina Coronary Disease-Associated Artery/Lesion type: [place] artery [place] vs. transplanted heart: [place] heart Qualified Code(s): I25.10 - Atherosclerotic heart disease of [place] coronary artery without angina pectoris Plan: Control the cholesterol, weight, blood pressure, diabetes on anticoagulation with Xarelto (6) Generalized anxiety disorder: Code(s): F41.1 - Generalized anxiety disorder Plan: Continue trazodone (7) Dementia: Code(s): F03.90 - Unspecified dementia, unspecified severity, without behavioral disturbance, psychotic disturbance, mood disturbance, and anxiety (8) Ulcer of right leg: Comment: 11/2023 Code(s): L97.919 - Non-pressure chronic ulcer of unspecified part of right lower leg with unspecified severity Plan: healing and decreasing redness- will continue to monitor Orders: Orders Complete Blood Count Auto Diff Today E78.00 - Pure hypercholesterolemia, unspecified Comprehensive Met. Panel Today E78.00 - Pure hypercholesterolemia, unspecified Lipid Panel Today E78.00 - Pure hypercholesterolemia, unspecified Prostate Specific Antigen Scr Today E78.00 - Pure hypercholesterolemia, unspecified Vitamin B12 and Folate Today E78.00 - Pure hypercholesterolemia, unspecified Lipid Panel 4 Months E11.65 - Type 2 diabetes mellitus with hyperglycemia, E78.00 - Pure hypercholesterolemia, unspecified Microalbumin, Random (w Creat) 4 Months .65 - Type 2 diabetes mellitus with hyperglycemia Free T4 (Free Thyroxine) 4 Months E11.65 - Type 2 diabetes mellitus with hyperglycemia Vitamin B12 and Folate 4 Months E11.65 - Type 2 diabetes mellitus with hyperglycemia Prostate Specific Antigen Scr 4 Months E11.65 - Type 2 diabetes mellitus with hyperglycemia Hemoglobin A1c 4 Months E11.65 - Type 2 diabetes mellitus with hyperglycemia AMB Hemoglobin A1c Today Z13.9 - Encounter for screening, unspecified Thyroid Stimulating Hormone Today E78.00 - Pure hypercholesterolemia, unspecified Free T4 (Free Thyroxine) Today E78.00 - Pure hypercholesterolemia, unspecified Complete Blood Count Auto Diff 4 Months . - Type 2 diabetes mellitus with hyperglycemia Comprehensive Met. Panel 4 Months - Type 2 diabetes mellitus with hyperglycemia Creatinine Urine 4 Months E11.65 - Type 2 diabetes mellitus with hyperglycemia Thyroid Stimulating Hormone 4 Months E11.65 - Type 2 diabetes mellitus with hyperglycemia Patient Instructions: Continue with present medication Coding Level of Care Code Est Pt Level 4 (18911) Complex EM visit Add On G2211 Diagnoses Type 2 diabetes mellitus with hyperglycemia E11.65 Essential hypertension I10 Hypertension type: essential hypertension Hypercholesterolemia E78.00 History of DVT (deep vein thrombosis) Z86.718 Coronary artery disease involving [place] coronary artery of [place] heart without angina pectoris I25.10 Associated angina: without angina Coronary Disease-Associated Artery/Lesion type: [place] artery [place] vs. transplanted heart: [place] heart Generalized anxiety disorder F41.1 Dementia F03.90 Ulcer of right leg L97.919
[2023-11-15 10:30] VITALS: BP 136/70; PULSE 80; O2SAT 98; BMI 32.3
== END 2023-11-15 10:55 | disposition home or self-care (01) ==
PROVIDERS: PCP Internal Medicine; Visit Provider Internal Medicine
DX: E11.65 Type 2 diabetes mellitus with hyperglycemia (principal); F03.90 Unspecified dementia, unspecified severity, without behavioral disturbance, psychotic disturbance, mood disturbance, and anxiety; L97.919 Non-pressure chronic ulcer of unspecified part of right lower leg with unspecified severity; Z86.718 Personal history of other venous thrombosis and embolism; I10 Essential (primary) hypertension; E78.00 Pure hypercholesterolemia, unspecified; I25.10 Atherosclerotic heart disease of native coronary artery without angina pectoris; F41.1 Generalized anxiety disorder
CPT/HCPCS: 83036; 99214; G2211

== ENCOUNTER 2024-02-02 15:38 | Outpatient (AMB) | payer OTHER, SELFPAY ==
--- NOTE | 2024-02-02 15:49 | MHC.PC.OV ---
Vital Signs 02/02/24 15:50 Height 5 ft 9 in Weight 220 lb BMI 32.5 BP 100/60 Blood Pressure Location Lt brachial Position Sitting Pulse 76 Pulse Source Pulse Oximeter Pulse Oximetry (%) 94 Oxygen Delivery Method Room Air Intake Visit Reasons: Swollen leg Intake Note: Patient is here to follow up on swollen of right leg. Content Coordinator Required: No Senior Vice President & General Counsel: Present Accompanied by: Daughter Allergies lisinopril Adverse Reaction (Intermediate, Verified 02/02/24 15:50) high creatinine Medication List - Last Reconciled 02/02/24 by Nevaeh Aquino MD amoxicillin-pot clavulanate 875-125 mg 1 tab PO BID ascorbate calcium (vitamin C) 500 mg PO DAILY 90 days blood sugar diagnostic (FreeStyle Lite Strips) As directed check blood sugars once a day blood-glucose meter (FreeStyle Lite Meter kit) As directed clonazepam 1 mg PO DAILY clonidine HCl 0.1 mg PO BID 90 days [email or web address],knee,reg,xlrg As directed CPAP (CPAP Machine/Device) As directed cyanocobalamin (vitamin B-12) 1,000 mcg PO DAILY 90 days cyclobenzaprine 10 mg PO TID [DIABETIC SHOES As directed] docusate sodium 100 mg PO BEDTIME donepezil 10 mg PO BEDTIME 30 days ezetimibe (Zetia) 10 mg PO DAILY ferrous sulfate (Feosol) 325 mg PO DAILY 90 days gabapentin 300 mg PO DAILY hydralazine 25 mg PO Q12H 90 days lancets (FreeStyle Lancets) As directed check the blood sugars once a day linaclotide (Linzess) 145 mcg PO DAILY memantine (Namenda) 5 mg PO QAM methylcellulose (laxative) (Fiber Therapy (methylcellulose)) 500 mg PO DAILY metoprolol succinate ER 50 mg PO DAILY nitroglycerin (Nitrostat) 0.4 mg sublingual Q5M PRN pantoprazole 40 mg PO BID rivaroxaban (Xarelto) 20 mg PO DAILY 90 days rosuvastatin (Crestor) 40 mg PO DAILY semaglutide 1 mg (0.75 mL) subcut QWEEK 30 days topiramate 25 mg PO BID 90 days tramadol 50 mg PO TID PRN 30 days trazodone 50 mg PO BEDTIME PRN [walker with seat and wheels As directed] Tobacco use date assessed: 02/02/24 Fall risk assessment: No Falls in past year Last assessed Fall Risk: 02/02/24 Dental Screening Dental Screen Date: 08/08/23 HPI Swollen leg HPI Details 69-year-old obese male with diabetes mellitus hypertension hypercholesterolemia history of DVT coronary artery disease generalized anxiety disorder dementia coming in for follow-up. Last seen in 11/15/2023. Patient is up-to-date with colonoscopy in February 2022. Last blood work was in April 2023. [facility] Medical History Preop exam for internal medicine Diverticulosis DM2 (diabetes mellitus, type 2) Tubular adenoma of colon Right leg DVT COPD (chronic obstructive pulmonary disease) Romero's cyst of knee Exertional chest pain Constipation Rectal bleeding History of DVT (deep vein thrombosis) Hypercholesterolemia Anemia Obstructive sleep apnea Cognitive impairment Coronary artery disease History of renal calculi Polysubstance abuse Lumbar spondylosis Hypertension Current use of anticoagulant therapy Surgical History History of heart artery stent History of endoscopy (~2020) History of cystoscopy (~2001) History of lithotripsy (~2001) History of colonoscopy (~2020) History of cardiac cath (~06/2009) History of hand surgery Family History Father No problems noted. Mother Diabetes Hypertension Stroke Family/Other No problems noted. Family/Other Leukemia Other Mental health disorder Social History Household Members: None Housing: Apartment Are you a primary respiratory care faculty to a significant other at home: No Do you presently have visiting nurse or other home services: Yes Alcohol intake: never Patient Tobacco Use Status: Former Tobacco user Tobacco use type: Cigarette Years Smoked: 10 years e-Cigarette/Vaping Use: Never Used Second Hand Smoke Exposure: No Advance Directives Date on File: 10/13/21 service: No Current occupational status: retired Cognitive needs: No Hearing needs: No Vision needs: No Questionnaire Thrive Questionnaire Date Thrive assessed: 08/08/23 GENA-7 AMB Questionnaire GENA-7 Date GENA - 7 assessed: 08/08/23 Source: Developed by Drs. Maynor Colon, Viviana Jacobson, Dandy Garcia and colleagues, with an educational leonard from [employer]. Physical exam (Primary Care) Vital Signs: Last Vital Signs Pulse 76 02/02/24 15:50 BP 100/60 02/02/24 15:50 Pulse Ox 94 02/02/24 15:50 Oxygen Delivery Method Room Air 02/02/24 15:50 BMI result Body Mass Index 32.5 Tobacco/Smoking Status: Tobacco use Status Tobacco use date assessed 02/02/24 02/02/24 15:55 Patient Tobacco Use Status Former Tobacco user 02/02/24 15:55 Tobacco use type Cigarette 02/02/24 15:55 e-Cigarette/Vaping Use Never Used 02/02/24 15:55 Thrive Assessment: Date of Thrive Assessment Date Thrive assessed 08/08/23 02/02/24 15:55 Const General: alert; No acute distress Eyes Conjunctivae: conjunctivae normal Resp Auscultation: clear to auscultation bilaterally Cardio Rate: regular rate Rhythm: regular rhythm GI Inspection: Yes normal to inspection Skin Full body images: 1. Multiple open wounds on the right leg with a hyper pigmented lesion on the whole leg 2. 3. Extrem Other: Right lower extremity 2+ edema left leg 1+ edema but the right leg has multiple open wounds with hyper pigmented rash General: No edema Assessment and Plan Assessment & Plan (1) Type 2 diabetes mellitus with hyperglycemia: Comment: March 2020 hemoglobin A1c of 6.6 [facility] Code(s): E11.65 - Type 2 diabetes mellitus with hyperglycemia Plan: Decrease the amount of carbohydrate intake, pasta, bread, rice and potatoes are all sugar and that is aside from all the sweet stuff, remember that fruits are good but they are Sweet also. Hemoglobin A1c goal of less than 7.0. Patient is on semaglutide (2) Obstructive sleep apnea: Comment: does not tolerate CPAP 09/2016October 2022- for sleep apnea Code(s): G47.33 - Obstructive sleep apnea (adult) (pediatric) Plan: Discussed importance having CPAP and treatment for sleep apnea. (3) COPD (chronic obstructive pulmonary disease): Code(s): J44.9 - Chronic obstructive pulmonary disease, unspecified Qualifiers: COPD type: chronic bronchitis Chronic bronchitis type: simple Qualified Code(s): J41.0 - Simple chronic bronchitis Plan: Stable (4) Hypercholesterolemia: Code(s): E78.00 - Pure hypercholesterolemia, unspecified Plan: Avoid fried foods, chicken skin, eggs, butter margarine, pastries and meat. Be it pork or beef they have a lot of cholesterol on rosuvastatin 40 mg once a day and Zetia (5) Hypertension: Code(s): I10 - Essential (primary) hypertension Qualifiers: Hypertension type: essential hypertension Qualified Code(s): I10 - Essential (primary) hypertension Plan: Continue with blood pressure medication. Decrease salt intake and exercise patient is taking clonidine 0.1 mg twice a day hydralazine 25 mg twice a day metoprolol 50 mg once a day (6) History of DVT (deep vein thrombosis): Comment: (Hx Right leg DVT 07/2009 and Right leg DVT 08/2021) Code(s): Z86.718 - Personal history of other venous thrombosis and embolism Plan: Repeat ultrasound of the leg revealed negative DVT (7) Coronary artery disease: Comment: [place] July 2009 cardiac catheterization June 2009 no obstructive Code(s): I25.10 - Atherosclerotic heart disease of [place] coronary artery without angina pectoris Qualifiers: Associated angina: without angina Coronary Disease-Associated Artery/Lesion type: [place] artery [place] vs. transplanted heart: [place] heart Qualified Code(s): I25.10 - Atherosclerotic heart disease of [place] coronary artery without angina pectoris Plan: Control the cholesterol, weight, blood pressure, diabetes continue with anticoagulation Xarelto (8) Dementia: Code(s): F03.90 - Unspecified dementia, unspecified severity, without behavioral disturbance, psychotic disturbance, mood disturbance, and anxiety Plan: Continue with present medication of donepezil and memantine (9) Peripheral vascular disease: Code(s): I73.9 - Peripheral vascular disease, unspecified Plan: When sitting down elevate the legs, exercise, and support stockings patient is advised to get blood work done (10) Venous stasis dermatitis: Code(s): I87.2 - Venous insufficiency (chronic) (peripheral) Plan: elevate legs. Discussed about treating peripheral vascular disease with with dry dressing saline cleaning and then support stockings (11) Cellulitis of right leg: Code(s): L03.115 - Cellulitis of right lower limb Plan: antibiotic sent it discussed about diarrhea as a side effect. Medications: New amoxicillin-pot clavulanate 875-125 mg 1 tab PO BID 14 tabs 0RF L03.115 - Cellulitis of right lower limb Discontinued CPAP (CPAP Machine/Device) Discontinued Reason: Change Referral Type As directed 1 ea 0RF G47.33 - Obstructive sleep apnea (adult) (pediatric) Coding Level of Care Code Est Pt Level 4 (84303) Complex EM visit Add On G2211 Diagnoses Type 2 diabetes mellitus with hyperglycemia E11.65 Obstructive sleep apnea G47.33 Simple chronic bronchitis J41.0 COPD type: chronic bronchitis Chronic bronchitis type: simple Hypercholesterolemia E78.00 Essential hypertension I10 Hypertension type: essential hypertension History of DVT (deep vein thrombosis) Z86.718 Coronary artery disease involving [place] coronary artery of [place] heart without angina pectoris I25.10 Associated angina: without angina Coronary Disease-Associated Artery/Lesion type: [place] artery [place] vs. transplanted heart: [place] heart Dementia F03.90 Peripheral vascular disease I73.9 Venous stasis dermatitis I87.2 Cellulitis of right leg L03.115
[2024-02-02 15:50] VITALS: BP 100/60; PULSE 76; O2SAT 94; BMI 32.5
== END 2024-02-02 17:15 | disposition home or self-care (01) ==
PROVIDERS: PCP Internal Medicine; Visit Provider Internal Medicine
DX: E11.65 Type 2 diabetes mellitus with hyperglycemia (principal); J41.0 Simple chronic bronchitis; F03.90 Unspecified dementia, unspecified severity, without behavioral disturbance, psychotic disturbance, mood disturbance, and anxiety; I73.9 Peripheral vascular disease, unspecified; G47.33 Obstructive sleep apnea (adult) (pediatric); E78.00 Pure hypercholesterolemia, unspecified; I10 Essential (primary) hypertension; Z86.718 Personal history of other venous thrombosis and embolism; I25.10 Atherosclerotic heart disease of native coronary artery without angina pectoris; I87.2 Venous insufficiency (chronic) (peripheral); L03.115 Cellulitis of right lower limb
CPT/HCPCS: 99214; G2211

== ENCOUNTER 2024-04-24 10:40 | Outpatient (AMB) | payer OTHER, SELFPAY ==
--- NOTE | 2024-04-24 10:49 | MHC.PC.OV ---
Vital Signs 04/24/24 10:50 Height 5 ft 9 in Weight 223 lb BMI 32.9 BP 122/70 Blood Pressure Location Lt brachial Position Sitting Pulse 68 Pulse Source Pulse Oximeter Pulse Oximetry (%) 98 Oxygen Delivery Method Room Air Intake Visit Reasons: DM Allergies lisinopril Adverse Reaction (Intermediate, Verified 04/24/24 10:50) high creatinine Tobacco use date assessed: 02/02/24 Fall risk assessment: No Falls in past year Last assessed Fall Risk: 04/24/24 Dental Screening Dental Screen Date: 08/08/23 HPI DM HPI Details 69-year-old obese male with controlled diabetes mellitus obstructive sleep apnea COPD hypercholesterolemia hypertension coronary artery disease dementia venous stasis dermatitis coming in for follow-up. Last seen in 01/23/2024. Patient's last colonoscopy was in 2021. [facility] Medical History Preop exam for internal medicine Diverticulosis DM2 (diabetes mellitus, type 2) Tubular adenoma of colon Right leg DVT COPD (chronic obstructive pulmonary disease) Romero's cyst of knee Exertional chest pain Constipation Rectal bleeding History of DVT (deep vein thrombosis) Hypercholesterolemia Anemia Obstructive sleep apnea Cognitive impairment Coronary artery disease History of renal calculi Polysubstance abuse Lumbar spondylosis Hypertension Current use of anticoagulant therapy Surgical History History of heart artery stent History of endoscopy (~2020) History of cystoscopy (~2001) History of lithotripsy (~2001) History of colonoscopy (~2020) History of cardiac cath (~06/2009) History of hand surgery Family History Father No problems noted. Mother Diabetes Hypertension Stroke Family/Other No problems noted. Family/Other Leukemia Other Mental health disorder Social History Household Members: None Housing: Apartment Are you a primary attending ambulatory care to a significant other at home: No Do you presently have visiting nurse or other home services: Yes Alcohol intake: never Patient Tobacco Use Status: Former Tobacco user Tobacco use type: Cigarette Years Smoked: 10 years e-Cigarette/Vaping Use: Never Used Second Hand Smoke Exposure: No Advance Directives Date on File: 10/13/21 service: No Current occupational status: retired Cognitive needs: No Hearing needs: No Vision needs: Yes Questionnaire PHQ-9 Over the last 2 weeks, how often have you been bothered by any of the following problems? 1. Little interest or pleasure in doing things: several days 2. Feeling down, depressed, or hopeless: several days 3. Trouble falling or staying asleep, or sleeping too much: several days 4. Feeling tired or having little energy: several days 5. Poor appetite or overeating: several days 6. Feeling bad about yourself - or that you are a failure or have let yourself or your family down: several days 7. Trouble concentrating on things, such as reading the newspaper or watching television: not at all 8. Moving or speaking so slowly that other people could have noticed. Or the opposite - being so fidgety or restless that you have been moving around a lot more than usual: not at all 9. Thoughts that you would be better off or of hurting yourself in some way: not at all Total score: 6 Depression Screening Interpretation: Positive Depression Screening Done: Yes Source: Developed by Drs. Maynor Colon, Viviana Jacobson, Dandy Garcia and colleagues, with an educational leonard from [employer]. Thrive Questionnaire Date Thrive assessed: 08/08/23 AUDIT C Alcohol Use Questionnaire (AUDIT-C) 1. How often do you have a drink containing alcohol?: Never 3. How often do you have six or more drinks on one occasion?: Never Total Score: 0 Score Reviewed/Action Taken: No GENA-7 AMB Questionnaire GENA-7 Date GENA - 7 assessed: 08/08/23 Source: Developed by Drs. Maynor Colon, Dandy Serrano and colleagues, with an educational leonard from [employer]. Physical exam (Primary Care) Vital Signs: Last Vital Signs Pulse 68 04/24/24 10:50 BP 122/70 04/24/24 10:50 Pulse Ox 98 04/24/24 10:50 Oxygen Delivery Method Room Air 04/24/24 10:50 BMI result Body Mass Index 32.9 Tobacco/Smoking Status: Tobacco use Status Tobacco use date assessed 02/02/24 04/24/24 10:51 Patient Tobacco Use Status Former Tobacco user 04/24/24 10:51 Tobacco use type Cigarette 04/24/24 10:51 e-Cigarette/Vaping Use Never Used 04/24/24 10:51 PHQ-9: PHQ-9 Score PHQ-9: Total score 6 04/24/24 11:08 Depression Screening Interpretation: Positive Thrive Assessment: Date of Thrive Assessment Date Thrive assessed 08/08/23 04/24/24 10:51 Const General: alert; No acute distress Eyes Conjunctivae: conjunctivae normal Resp Auscultation: clear to auscultation bilaterally Cardio Rate: regular rate Rhythm: regular rhythm GI Inspection: Yes normal to inspection Extrem General: Yes normal to inspection and No edema Office Procedures Flu Questionnaire Does the patient have a severe egg allergy?: No Does the patient have severe life threatening allergies?: No Does the patient have a fever or illness today?: No Has the patient ever had Guillain-[place] Syndrome?: No Has the patient ever had any past reaction to a flu shot?: No Results AMB Hemoglobin A1c AMB Hemoglobin A1c 5.2 % Last Edit by Ofelia Guzman CMA on 04/24/24 11:07 Immunizations Fluarix Triv [id number] (PF) 45 mcg (15 mcg x 3)/0.5 mL IM syringe Performing Provider: Nevaeh Aquino MD Performing Location: [facility] Administered by: Ofelia Guzman CMA on 04/24/24 11:08 Dose Route Admin Location Dispensed Lot Number Expiration Date [facility] Warhead Maintenance Specialist 0.5 mL IM Left Deltoid 0.5 mL [id number] 12/02/24 [id number] [employer] VIS Given Date VIS Provided VIS Publication Date 04/24/24 Single Vaccine 21 Eligibility Eligibility Date Funding Source Not [facility] Eligible 04/24/24 Private Results Reviewed Results Reviewed: Laboratory Last Values Hgb A1c (Clinic) 5.2 % (4.0-6.0) 04/24/24 10:52 Coding Level of Care Code Est Pt Level 4 (28025) Diagnoses Type 2 diabetes mellitus with hyperglycemia E11.65 Coronary artery disease involving [place] coronary artery of [place] heart without angina pectoris I25.10 Coronary Disease-Associated Artery/Lesion type: [place] artery [place] vs. transplanted heart: [place] heart Associated angina: without angina Essential hypertension I10 Hypertension type: essential hypertension Hypercholesterolemia E78.00 Generalized anxiety disorder F41.1 Moderate dementia with anxiety, unspecified dementia type F03.B4 Dementia type: unspecified type Dementia severity: moderate Dementia behavioral or psychological symptom: with anxiety Assessment & Plan Assessment & Plan (1) Type 2 diabetes mellitus with hyperglycemia: Comment: March 2020 hemoglobin A1c of 6.6 [facility] Code(s): E11.65 - Type 2 diabetes mellitus with hyperglycemia Category: Medical Plan: Decrease the amount of carbohydrate intake, pasta, bread, rice and potatoes are all sugar and that is aside from all the sweet stuff, remember that fruits are good but they are Sweet also. Hemoglobin A1c goal of less than 7.0. Patient is taking semaglutide 1 mg once a week (2) Coronary artery disease: Comment: [place] July 2009 cardiac catheterization June 2009 no obstructive Code(s): I25.10 - Atherosclerotic heart disease of [place] coronary artery without angina pectoris Category: Medical Qualifiers: Coronary Disease-Associated Artery/Lesion type: [place] artery [place] vs. transplanted heart: [place] heart Associated angina: without angina Qualified Code(s): I25.10 - Atherosclerotic heart disease of [place] coronary artery without angina pectoris Plan: Control the cholesterol, weight, blood pressure, diabetes on Xarelto 20 mg once a day (3) Hypertension: Code(s): I10 - Essential (primary) hypertension Category: Medical Qualifiers: Hypertension type: essential hypertension Qualified Code(s): I10 - Essential (primary) hypertension Plan: Continue with blood pressure medication. Decrease salt intake and exercise metoprolol 50 mg once a day hydralazine 25 mg twice a day clonidine 0.1 mg twice a day (4) Hypercholesterolemia: Code(s): E78.00 - Pure hypercholesterolemia, unspecified Category: Medical Plan: Avoid fried foods, chicken skin, eggs, butter margarine, pastries and meat. Be it pork or beef they have a lot of cholesterol LDL goal of less than 70 and triglyceride of less than 150 takes Zetia and rosuvastatin. Patient will need blood work (5) Generalized anxiety disorder: Code(s): F41.1 - Generalized anxiety disorder Category: Medical Plan: Continue with therapy (6) Dementia: Code(s): F03.90 - Unspecified dementia, unspecified severity, without behavioral disturbance, psychotic disturbance, mood disturbance, and anxiety Category: Medical Qualifiers: Dementia type: unspecified type Dementia severity: moderate Dementia behavioral or psychological symptom: with anxiety Qualified Code(s): F03.B4 - Unspecified dementia, moderate, with anxiety Plan: Supportive treatment Orders: Orders AMB Hemoglobin A1c Today Z13.9 - Encounter for screening, unspecified Influenza [id number] Immunization Today Z23 - Encounter for immunization Referrals Podiatry Referral E11.65 - Type 2 diabetes mellitus with hyperglycemia Medications: New diclofenac sodium 1% (Voltaren Arthritis Pain) apply to single knee, ankle, foot; for foot includes sole/toes/top of foot 4 grams topical QID 100 grams 2RF M17.11 - Unilateral primary osteoarthritis, right knee Changed From semaglutide 1 mg (0.75 mL) subcut QWEEK 30 days 3.75 mL 4RF E11.65 - Type 2 diabetes mellitus with hyperglycemia To semaglutide 2 mg (0.75 mL) subcut QWEEK 30 days 3.75 mL 4RF E11.65 - Type 2 diabetes mellitus with hyperglycemia Refilled [DIABETIC SHOES] As directed 2 ea 0RF E11.65 - Type 2 diabetes mellitus with hyperglycemia
[2024-04-24 10:50] VITALS: BP 122/70; PULSE 68; O2SAT 98; BMI 32.9
== END 2024-04-24 11:34 | disposition home or self-care (01) ==
PROVIDERS: PCP Internal Medicine; Visit Provider Internal Medicine
DX: E11.65 Type 2 diabetes mellitus with hyperglycemia (principal); F03.B4 Unspecified dementia, moderate, with anxiety; I25.10 Atherosclerotic heart disease of native coronary artery without angina pectoris; I10 Essential (primary) hypertension; E78.00 Pure hypercholesterolemia, unspecified; F41.1 Generalized anxiety disorder

== ENCOUNTER → 2024-04-24 10:40 | Outpatient (BNVA) | payer OTHER, SELFPAY | PROVIDERS: PCP Internal Medicine; Visit Provider Internal Medicine | DX: Z23 Encounter for immunization (principal); E11.65 Type 2 diabetes mellitus with hyperglycemia; I25.10 Atherosclerotic heart disease of native coronary artery without angina pectoris; I10 Essential (primary) hypertension; E78.00 Pure hypercholesterolemia, unspecified; F41.1 Generalized anxiety disorder; F03.B4 Unspecified dementia, moderate, with anxiety | CPT/HCPCS: 83036; 90471; 90656; 96127; 99212 ==

== ENCOUNTER 2024-04-25 09:36 | Outpatient (REF) | payer OTHER, SELFPAY ==
[2024-04-25 09:55] LABS: MANUAL DIFF FLAG NO
[2024-04-25 10:27] LABS: Basophils Absolute Auto 0.1 X10*3/uL (0.0-0.2); Basophils Percent Auto 1.3 % (0-2); Eosinophils Absolute Auto 0.2 X10*3/uL (0.0-0.4); Eosinophils Percent Auto 4.4 % (0-4); Hematocrit 38.3 % (42.0-52.0); Hemoglobin 12.3 g/dl (14.0-18.0); Imm Gran Abs Auto 0.01 X10*3/uL (0.00-0.03); Imm Gran Pct Auto 0.2 % (0.0-0.4); Lymphocytes Absolute Auto 2.1 X10*3/uL (1.2-4.9); Lymphocytes Percent Auto 44.7 % (20-40); Mean Corpuscular HGB Conc 32.1 g/dl (31.0-36.0); Mean Corpuscular Hemoglobin 27.5 pg (27.0-33.0); Mean Corpuscular Volume 85.7 fL (80.0-98.0); Mean Platelet Volume 9.8 fL (9.4-12.4); Monocytes Absolute Auto 0.4 X10*3/uL (0.1-1.2); Monocytes Percent Auto 8.7 % (2-11); Neutrophils Absolute Auto 1.9 x10*3/uL (2.0-8.3); Neutrophils Percent Auto 40.7 % (45-73); Platelet Count 197 X10*3/uL (160-400); Red Blood Count 4.47 X10*6/uL (4.60-5.80); Red Cell Distribution Width 13.1 % (11.0-16.0); White Blood Count 4.7 X10*3/uL (4.8-10.8)
[2024-04-25 10:33] LABS: Estimated Average Glucose 117 mg/dL; Hemoglobin A1C 127.2889 umol/L; Hemoglobin A1c % 5.7 % (<6.0); Total Hemoglobin (HGBA1C) 3257.1982 umol/L
[2024-04-25 10:57] LABS: Alanine Aminotransferase 38 U/L (0-40); Albumin Level 3.8 g/dL (3.5-5.0); Alkaline Phosphatase 91 U/L (39-117); Anion Gap 10 (12-20); Aspartate Amino Transferase 44 U/L (5-37); Bilirubin Total 0.5 mg/dL (0.0-1.0); Blood Urea Nitrogen 13 mg/dL (9-16); Calcium 9.2 mg/dL (8.4-10.2); Carbon Dioxide 26 mmol/L (22-29); Chloride 110 mmol/L (96-108); Cholesterol 95 mg/dL (<200); Estimated Glomerular Filt Rate > 60; Glucose Random 108 mg/dL (60-115); HDL Cholesterol 42 mg/dL (>40); LDL Cholesterol Calculated 33 mg/dL (<100); Potassium 3.9 mmol/L (3.3-5.1); Sodium 142 mmol/L (135-145); Triglycerides 101 mg/dL (<150)
[2024-04-25 11:14] LABS: Free T4 (Free Thyroxine) 1.06 ng/dL (0.71-1.85); Thyroid Stimulating Hormone 1.54 uIU/mL (0.32-4.0)
[2024-04-25 11:26] LABS: Folate 4.9 ng/mL (> or = 4.0); Prostate Specific Antigen Scr 0.52 ng/mL (<0.05-4.0); Vitamin B12 1203 pg/mL (200-900)
[2024-04-25 11:41] LABS: Creatinine Urine 336.83 mg/dL; Microalbum/Creatinine Ratio Ur 4.7 ug/mg cr (<30)
== END 2024-04-25 09:37 | disposition home or self-care (01) ==
LOC: HO.LAB 09:36
PROVIDERS: PCP Internal Medicine; Visit Provider Internal Medicine
DX: E78.00 Pure hypercholesterolemia, unspecified (principal); E11.65 Type 2 diabetes mellitus with hyperglycemia; Z12.5 Encounter for screening for malignant neoplasm of prostate
CPT/HCPCS: 36415; 80053; 80061; 82043; 82570; 82607; 82746; 83036; 84153; 84439; 84443; 85025

== ENCOUNTER 2024-07-23 21:04 | Emergency (ER) | payer OTHER, SELFPAY ==
--- NOTE | ~2024-07-23 | CT_ITS ---
CLINICAL HISTORY: fall, on AC CT head without contrast Comparison: CT/SR - CT HEAD/BRAIN WO IV CON - 09/26/22 12:29 EDT Findings: No intra-axial mass, midline shift, hydrocephalus, or acute hemorrhage. No significant atrophy-like change or white matter disease. There is no sinus or mastoid fluid. The orbits are within normal limits. No skull fracture. IMPRESSION: 1. No acute intracranial findings specifically, no acute intracranial hemorrhage. This document has been electronically signed by: Bertha Lerner MD on 07/23/2024 22:17:10
--- NOTE | ~2024-07-23 | CT_ITS ---
CLINICAL HISTORY: headstrike on AC CT cervical spine without contrast Comparison: CT/SR - CT CERVICAL SPINE WO IV CON - 09/26/22 12:29 EDT Findings: Normal vertebral body alignment. Mild multilevel spondylosis. No acute fractures or dislocations. No acute findings on limited view of the intracranial contents. No cervical fluid collections or masses. Lung apices are clear. IMPRESSION: No acute findings. Mild multilevel spondylosis. This document has been electronically signed by: Bertha Lerner MD on 07/23/2024 22:08:38
[2024-07-23 21:12] VITALS: BP 123/60; PULSE 50; RESP 18; TEMP 36.8; O2SAT 98; BMI 32.6
--- NOTE | 2024-07-23 21:14 | ED.HEATRA ---
HPI - Head Injury General Chief complaint: Head Injury Stated complaint: Fall/Head injury Time Seen by Provider: 07/23/24 23:10 Source: patient Mode of arrival: ambulatory Limitations: no limitations History of Present Illness ED Provider: damaso carias NP HPI Narrative: Patient is a 69-year-old male who presents emergency department for evaluation after a strictly mechanical slip and fall. He was walking his dog today when he slipped on the ice falling backwards landing onto his back and striking his head. He denies any loss of consciousness. He is anticoagulated on Xarelto. Pain endorse having dizziness after the fall but this is since was resolved, he has a mild posterior headache. He denies any lacerations or bleeding afterwards. He denies any vision changes, neck pain, neck stiffness, numbness or tingling of the extremities, bladder bowel dysfunction. Related Data Previous Rx's ?Medication ?Instructions ?Recorded salomón.stocking,knee,reg,xlrg #6 ea 07/01/20 blood sugar diagnostic (FreeStyle #100 ea 02/18/21 Lite Strips) blood-glucose meter (FreeStyle #1 ea 02/18/21 Lite Meter kit) lancets 28 gauge (FreeStyle #100 ea 02/18/21 Lancets) nitroglycerin 0.4 mg sublingual 0.4 mg sublingual Q5M PRN Chest 02/18/21 tablet (Nitrostat) Pain #25 tabs cyclobenzaprine 10 mg tablet 10 mg PO TID #90 tabs 08/10/21 walker with seat and wheels #1 ea 10/11/21 ferrous sulfate 325 mg (65 mg 325 mg PO DAILY 90 days #90 tabs 09/27/23 iron) tablet (Feosol) memantine 5 mg tablet (Namenda) 5 mg PO QAM #90 tabs 09/27/23 rosuvastatin 40 mg tablet (Crestor) 40 mg PO DAILY #90 tabs 09/27/23 ascorbate calcium (vitamin C) 500 500 mg PO DAILY 90 days #90 tabs 09/28/23 mg tablet cyanocobalamin (vitamin B-12) 1,000 mcg PO DAILY 90 days #90 caps 09/28/23 1,000 mcg capsule trazodone 50 mg tablet 50 mg PO BEDTIME PRN insomnia #90 10/23/23 tabs topiramate 25 mg tablet 25 mg PO BID 90 days #180 tabs 12/14/23 linaclotide 145 mcg capsule 145 mcg PO DAILY #30 caps 01/08/24 (Linzess) metoprolol succinate 50 mg 50 mg PO DAILY #90 tabs 01/08/24 tablet,extended release 24 hr clonidine HCl 0.1 mg tablet 0.1 mg PO BID 90 days #180 tabs 01/09/24 methylcellulose (laxative) 500 mg 500 mg PO DAILY #30 tabs 01/30/24 tablet (Fiber Therapy (methylcellulose)) ezetimibe 10 mg tablet (Zetia) 10 mg PO DAILY #90 tabs 03/01/24 docusate sodium 100 mg capsule 100 mg PO BEDTIME #28 caps 03/25/24 hydralazine 25 mg tablet 25 mg PO Q12H 90 days #180 tabs 03/28/24 DIABETIC SHOES #2 ea 04/24/24 diclofenac sodium 1 % topical gel 4 g topical QID #100 grams 04/24/24 (Voltaren Arthritis Pain) semaglutide 2 mg/dose (8 mg/3 mL) 2 mg (0.75 mL) subcut QWEEK 30 04/24/24 subcutaneous pen injector days #3.75 mL clonazepam 1 mg tablet 1 mg PO DAILY #30 tabs 05/22/24 donepezil 10 mg tablet 10 mg PO BEDTIME 30 days #90 tabs 05/22/24 gabapentin 300 mg capsule 300 mg PO DAILY #90 caps 06/19/24 pantoprazole 40 mg tablet,delayed 40 mg PO BID #60 tabs 07/15/24 release rivaroxaban 20 mg tablet (Xarelto) 20 mg PO DAILY 90 days #90 tabs 07/15/24 tramadol 50 mg tablet 50 mg PO TID PRN pain 30 days #90 07/15/24 tabs Allergies Allergy/AdvReac Type Severity Reaction Status Date / Time lisinopril AdvReac Intermediate high Verified 07/23/24 21:16 creatinine Review of Systems Review of Systems: Yes all other systems are reviewed and are negative [facility] Past Medical History Attestation statement: The following information was validated with the patient. Source: old records reviewed Medical History Preop exam for internal medicine Diverticulosis DM2 (diabetes mellitus, type 2) Tubular adenoma of colon Right leg DVT COPD (chronic obstructive pulmonary disease) Romero's cyst of knee Exertional chest pain Constipation Rectal bleeding History of DVT (deep vein thrombosis) Hypercholesterolemia Anemia Obstructive sleep apnea Cognitive impairment Coronary artery disease History of renal calculi Polysubstance abuse Lumbar spondylosis Hypertension Current use of anticoagulant therapy Surgical History History of heart artery stent History of endoscopy (~2020) History of cystoscopy (~2001) History of lithotripsy (~2001) History of colonoscopy (~2020) History of cardiac cath (~06/2009) History of hand surgery Family History Family History Father No problems noted. Mother Diabetes Hypertension Stroke Family/Other No problems noted. Family/Other Leukemia Other Mental health disorder Social History Social History Household Members: None Housing: Apartment Are you a primary career and guidance counselor to a significant other at home: No Do you presently have visiting nurse or other home services: Yes Alcohol intake: never Patient Tobacco Use Status: Former Tobacco user Tobacco use type: Cigarette Years Smoked: 10 years e-Cigarette/Vaping Use: Never Used Second Hand Smoke Exposure: No Advance Directives: Yes Advance Directives on File: Yes Advance Directives Date on File: 10/13/21 service: No Current occupational status: retired Cognitive needs: No Hearing needs: No Vision needs: Yes Physical Exam Vital Signs: Vital Signs: Last Vital Signs Temp 98.3 F 07/24/24 00:19 Pulse 61 07/24/24 00:19 Resp 18 07/24/24 00:19 BP 109/71 07/24/24 00:19 Pulse Ox 97 07/24/24 00:19 O2 Del Method Room Air 07/24/24 00:19 BMI result Body Mass Index 32.6 Appearance: Alert.?Oriented to person, place and time. No acute distress.?Normal affect. Head: Normocephalic Eyes: Pupils equal, round and reactive to light. EOMI. Conjunctiva and sclera normal? No Farah sign noted. No raccoon eyes noted ENT: No septal hematoma, nares patent bilaterally. External auditory canal normal tympanic membrane pearly bergman and intact bilaterally. Dentition normal, no fractured teeth. No lesions or lacerations of oropharynx. Uvula midline. Moist mucous membranes. Neck: Normal inspection.? Neck supple.??No palpable tenderness, step-off, deformities. CVS: Heart sounds normal. Normal heart rate and rhythm.? Pulses normal.?? Respiratory: No respiratory distress.? Lung sounds clear to auscultation bilaterally?? Abdomen: Soft and non-tender. Normoactive bowel sounds. ?? Skin: Skin warm and dry.? Normal skin color.? Normal skin turgor.?? Extremities: No lower extremity edema.? Neuro: Moves all extremities spontaneously. Sensation intact bilaterally. CN II-XII intact. No focal neuro deficits. Course Course Course Narrative: This is an RME: Additional HPI, ROS, PE not included below will be deferred to primary provider. RME assessment and note performed by: Radha Krishna PA-C This is a 69-year-old male, with a history of type 2 diabetes, DVT on Xarelto, COPD, hypertension, who presents emergency department for head strike. Slip and fall on ice struck his head. He is on Xarelto. He endorses some dizziness. Plan CT head and neck Medical Decision Making Medical Decision Making MDM Narrative: Patient is a 69-year-old male, with a history of type 2 diabetes, DVT on Xarelto, COPD, hypertension who presents emergency department for evaluation after mechanical slip and fall on the ice. No preceding symptoms to suggest alternative pathology aside from mechanical nature. My evaluation he has no focal neurological deficits, no traumatic injury to the scalp lacerations or hematomas noted. Given mechanism of injury, use of anticoagulants CT head was obtained and is without evidence of ICH, SDH, skull fracture, CT of the cervical spine was obtained prior to my assumption of care no acute fracture subluxation. He has no midline cervical spine tenderness step-offs or deformities. He is ambulatory with a steady gait. He offers no additional physical complaints. He is requesting discharge home at this time which I feel is reasonable. We discussed strict return precautions, monitoring for signs and symptoms of concussion with the next few days, outpatient follow-up with primary care doctor. He is being discharged home with his daughter. Differential Diagnosis Differential Diagnoses: The differential diagnosis associated with the presentation includes (See narrative above) Admission/Observation Consideration of admission/observation: Escalation of care including admission/observation considered (See narrative above) Independent Interpretation I performed an independent interpretation of an: CT Scan (No ICH) Radiology Impression Discussion of test interpretation with radiology: I have reviewed the radiologist's reading. Radiologist Impression: CT head without contrast Comparison: CT/SR - CT HEAD/BRAIN WO IV CON - 09/26/22 12:29 EDT Findings: No intra-axial mass, midline shift, hydrocephalus, or acute hemorrhage. No significant atrophy-like change or white matter disease. There is no sinus or mastoid fluid. The orbits are within normal limits. No skull fracture. IMPRESSION: 1. No acute intracranial findings specifically, no acute intracranial hemorrhage. CT cervical spine without contrast Comparison: CT/SR - CT CERVICAL SPINE WO IV CON - 09/26/22 12:29 EDT Findings: Normal vertebral body alignment. Mild multilevel spondylosis. No acute fractures or dislocations. No acute findings on limited view of the intracranial contents. No cervical fluid collections or masses. Lung apices are clear. IMPRESSION: No acute findings. Mild multilevel spondylosis. Independent Historian Clinical information obtained from an independent historian. History obtained from or confirmed by: Other (Daughter) External Record Review External record reviewed: Outpatient record Chronic Conditions Patient?s care impacted by: Other (See narrative above) Discharge Plan Discharge Clinical Impression: Acute head injury without loss of consciousness, Concussion Patient Disposition: Home, Self-Care Instructions: Concussion (ED), Head Injury (ED) Additional Instructions: CT of the head/brain and neck today without any acute findings which is very reassuring. Monitor for signs symptoms of concussion as discussed, be sure to rest over the next few days, you may apply ice to the area pain for 10-15 minutes 3 to times daily, refrain from excessive time on phone screen or watching television as this may worsen the headaches. Return with any new or worsening symptoms or concerns which includes but is not limited to severe worsening pain/headache, persistent dizziness, lightheadedness, unsteady walking, nausea with persistent vomiting, neck pain or stiffness, chest pain, shortness of breath, numbness or tingling of the extremities. Contact primary care doctor to arrange for a follow-up visit within the next 3 days. You can take Tylenol 500 mg, 2 tablets (1,000mg) every 4-6 hours as needed for pain, but not to exceed 3 doses daily (3,000mg).? Prescriptions: No Action (DME) FreeStyle Lite Strips Strip See Rx Instructions .ROUTE .MEDSUPPLY Qty: 100 3RF Rx Instructions: As directed check blood sugars once a day (DME) blood-glucose meter [FreeStyle Lite Meter] Kit See Rx Instructions .ROUTE .MEDSUPPLY Qty: 1 0RF Rx Instructions: As directed (DME) lancets [FreeStyle Lancets] 28 gauge misc See Rx Instructions .ROUTE .MEDSUPPLY Qty: 100 3RF Rx Instructions: As directed check the blood sugars once a day nitroglycerin [Nitrostat] 0.4 mg tablet, sublingual 0.4 mg sublingual Q5M PRN (Reason: Chest Pain) Qty: 25 0RF Rx Instructions: do not exceed 3 doses per episode cyclobenzaprine 10 mg tablet 10 mg PO TID Qty: 90 1RF ferrous sulfate [Feosol] 325 mg (65 mg iron) tablet 325 mg PO DAILY 90 Days Qty: 90 11RF memantine [Namenda] 5 mg tablet 5 mg PO QAM Qty: 90 11RF rosuvastatin [Crestor] 40 mg tablet 40 mg PO DAILY Qty: 90 11RF ascorbate calcium (vitamin C) 500 mg tablet 500 mg PO DAILY 90 Days Qty: 90 11RF cyanocobalamin (vitamin B-12) 1,000 mcg capsule 1,000 mcg PO DAILY 90 Days Qty: 90 11RF trazodone 50 mg tablet 50 mg PO BEDTIME PRN (Reason: insomnia) Qty: 90 11RF topiramate 25 mg tablet 25 mg PO BID 90 Days Qty: 180 8RF Linzess 145 mcg capsule 145 mcg PO DAILY Qty: 30 10RF metoprolol succinate 50 mg tablet extended release 24 hr 50 mg PO DAILY Qty: 90 8RF clonidine HCl 0.1 mg tablet 0.1 mg PO BID 90 Days Qty: 180 8RF Fiber Therapy (m-cellulose) 500 mg tablet 500 mg PO DAILY Qty: 30 10RF ezetimibe [Zetia] 10 mg tablet 10 mg PO DAILY Qty: 90 11RF docusate sodium 100 mg capsule 100 mg PO BEDTIME Qty: 28 4RF hydralazine 25 mg tablet 25 mg PO Q12H 90 Days Qty: 180 2RF clonazepam 1 mg tablet 1 mg PO DAILY Qty: 30 2RF donepezil 10 mg tablet 10 mg PO BEDTIME 30 Days Qty: 90 11RF gabapentin 300 mg capsule 300 mg PO DAILY Qty: 90 2RF pantoprazole 40 mg tablet,delayed release (DR/EC) 40 mg PO BID Qty: 60 10RF Xarelto 20 mg tablet 20 mg PO DAILY 90 Days Qty: 90 11RF Rx Instructions: must administer with evening meal tramadol 50 mg tablet 50 mg PO TID PRN (Reason: pain) 30 Days Qty: 90 0RF (DME) salomón.stocking,knee,reg,xlrg Misc See Rx Instructions .ROUTE .MEDSUPPLY Qty: 6 0RF Rx Instructions: As directed (DME) walker with seat and wheels See Rx Instructions .Route .MEDSUPPLY Qty: 1 0RF Rx Instructions: As directed semaglutide 2 mg/dose (8 mg/3 mL) pen injector 2 mg subcut QWEEK 30 Days Qty: 3.75 4RF diclofenac sodium [Voltaren Arthritis Pain] 1 % gel 4 g topical QID Qty: 100 2RF Rx Instructions: apply to single knee, ankle, foot; for foot includes sole/toes/top of foot (DME) DIABETIC SHOES See Rx Instructions .Route .MEDSUPPLY Qty: 2 0RF Rx Instructions: As directed Referrals: Nevaeh Aquino MD [Primary Care Provider] - Interventions: ED Discharge Assessment Last Done: 07/24/24 00:19 Discharge Date/Time: 07/24/24 00:23 Print Language: Colombian
[2024-07-23 23:43] VITALS: BP 109/71; PULSE 61; RESP 18; TEMP 36.8; O2SAT 97
[2024-07-24 00:19] VITALS: BP 109/71; PULSE 61; RESP 18; TEMP 36.8; O2SAT 97
== END 2024-07-24 00:23 | disposition home or self-care (01) ==
PROVIDERS: Emergency Provider Emergency Medicine; PCP Internal Medicine
DX: S06.0X0A Concussion without loss of consciousness, initial encounter (principal); W00.0XXA Fall on same level due to ice and snow, initial encounter; Y93.01 Activity, walking, marching and hiking; Y92.9 Unspecified place or not applicable; Y99.9 Unspecified external cause status
CPT/HCPCS: 70450; 72125; 99282; 99284

== ENCOUNTER → 2024-07-23 21:13 | Outpatient (BNV) | payer OTHER, SELFPAY | PROVIDERS: PCP Internal Medicine; Visit Provider Student in an Organized Health Care Education/Training Program | DX: R51.9 Headache, unspecified (principal); M47.892 Other spondylosis, cervical region; W00.0XXA Fall on same level due to ice and snow, initial encounter | CPT/HCPCS: 70450; 72125 ==

== ENCOUNTER 2024-07-26 10:26 | Outpatient (AMB) | payer OTHER, SELFPAY ==
--- NOTE | 2024-07-26 10:39 | A.OFFPC_ITS ---
Vital Signs 07/26/24 10:41 Height 5 ft 7 in Weight 214 lb 4 oz BMI 33.6 BP 132/60 Blood Pressure Location Lt brachial Position Sitting Pulse 73 Pulse Source Pulse Oximeter Temp 97.1 F Temp Source Temporal Artery Scan Pulse Oximetry (%) 92 Oxygen Delivery Method Room Air Intake [place] [facility] [place] Intake Note: Patient is here for Emergency discharge follow up. Patient was [place] [facility] [place]. 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: Present Accompanied by: Daughter Allergies lisinopril Adverse Reaction (Intermediate, Verified 07/26/24 10:47) high creatinine Medication List - Last Reconciled 07/26/24 by Sofie Sheikh PA-C ascorbate calcium (vitamin C) 500 mg PO DAILY 90 days blood sugar diagnostic (FreeStyle Lite Strips) As directed check blood sugars once a day blood-glucose meter (FreeStyle Lite Meter kit) As directed clonazepam 1 mg PO DAILY clonidine HCl 0.1 mg PO BID 90 days salomón.stocking,knee,reg,xlrg As directed cyanocobalamin (vitamin B-12) 1,000 mcg PO DAILY 90 days cyclobenzaprine 10 mg PO TID [DIABETIC SHOES As directed] diclofenac sodium 1% (Voltaren Arthritis Pain) 4 grams topical QID docusate sodium 100 mg PO BEDTIME donepezil 10 mg PO BEDTIME 30 days ezetimibe (Zetia) 10 mg PO DAILY ferrous sulfate (Feosol) 325 mg PO DAILY 90 days gabapentin 300 mg PO DAILY hydralazine 25 mg PO Q12H 90 days lancets (FreeStyle Lancets) As directed check the blood sugars once a day linaclotide (Linzess) 145 mcg PO DAILY memantine (Namenda) 5 mg PO QAM methylcellulose (laxative) (Fiber Therapy (methylcellulose)) 500 mg PO DAILY metoprolol succinate ER 50 mg PO DAILY nitroglycerin (Nitrostat) 0.4 mg sublingual Q5M PRN pantoprazole 40 mg PO BID rivaroxaban (Xarelto) 20 mg PO DAILY 90 days rosuvastatin (Crestor) 40 mg PO DAILY semaglutide 2 mg (0.75 mL) subcut QWEEK 30 days topiramate 25 mg PO BID 90 days tramadol 50 mg PO TID PRN 30 days trazodone 50 mg PO BEDTIME PRN [walker with seat and wheels As directed] Tobacco use date assessed: 07/26/24 Fall risk assessment: 1 Fall in past year Last assessed Fall Risk: 07/26/24 Dental Screening Dental Screen Date: 07/26/24 Did you have a dental visit in the last 12 months?: No Did you have a dental problem in the last 6 months where you did not have access to dental care?: No Was dental information given to patient?: Patient has dentist [place] [facility] [place]/Head [place] HPI Details 69-year-old male with past medical histo ry of controlled diabetes mellitus, obstructive sleep apnea, COPD, hypercholesterolemia, hypertension, coronary artery disease, dementia, venous stasis dermatitis last seen 04/[address] Aquino coming in for follow up.? In review of the notes, patient was seen in [facility] [place] 07/24/2024 after a slip and fall on the ice with head strike patient is on anticoagulation with Xarelto.?CT of head and neck negative patient was stable and discharged home. Presenting with fall-related headache and occasional dizziness. The medical history indicates the incident occurred while the patient was out with his dog, slipping on ice without preceding dizziness or lightheadedness. Diagnostic e valuation through CT imaging confirmed no signs of intracranial hemorrhage. Presenting symptoms include a intermittent, pounding headache that is exacerbated. The patient notes lightheadedness when moving from lying down to standing, particularly post-nap, suggesting a possible positional element to his dizziness. Current management includes the use of Tylenol for pain, with an instruction to avoid stimuli such as bright lights, ensuring adequate rest for possible concussion recovery. [facility] Medical History Preop exam for internal medicine Diverticulosis DM2 (diabetes mellitus, type 2) Tubular adenoma of colon Right leg DVT COPD (chronic obstructive pulmonary disease) Romero's cyst of knee Exertional chest pain Constipation Rectal bleeding History of DVT (deep vein thrombosis) Hypercholesterolemia Anemia Obstructive sleep apnea Cognitive impairment Coronary artery disease History of renal calculi Polysubstance abuse Lumbar spondylosis Hypertension Current use of anticoagulant therapy Surgical History History of heart artery stent History of endoscopy (~2020) History of cystoscopy (~2001) History of lithotripsy (~2001) History of colonoscopy (~2020) History of cardiac cath (~06/2009) History of hand surgery Family History Father No problems noted. Mother Diabetes Hypertension Stroke Family/Other No problems noted. Family/Other Leukemia Other Mental health disorder Social History Household Members: None Housing: Apartment Are you a primary furnace caretaker to a significant other at home: No Do you presently have visiting nurse or other home services: Yes Alcohol intake: never Patient Tobacco Use Status: Former Tobacco user Tobacco use type: Cigarette Years Smoked: 10 years e-Cigarette/Vaping Use: Never Used Second Hand Smoke Exposure: Yes Advance Directives Date on File: 10/13/21 service: No Current occupational status: retired Cognitive needs: No Hearing needs: No Vision needs: Yes Questionnaire PHQ-9 Over the last 2 weeks, how often have you been bothered by any of the following problems? 1. Little interest or pleasure in doing things: not at all 2. Feeling down, depressed, or hopeless: not at all 3. Trouble falling or staying asleep, or sleeping too much: not at all 4. Feeling tired or having little energy: not at all 5. Poor appetite or overeating: not at all 6. Feeling bad about yourself - or that you are a failure or have let yourself or your family down: not at all 7. Trouble concentrating on things, such as reading the newspaper or watching television: not at all 8. Moving or speaking so slowly that other people could have noticed. Or the opposite - being so fidgety or restless that you have been moving around a lot more than usual: not at all 9. Thoughts that you would be better off or of hurting yourself in some way: not at all Total score: 0 Depression Screening Interpretation: Negative Depression Screening Done: Yes Source: Developed by Viviana Cisneros.W. Kavon, Dandy Garcia and colleagues, with an educational leonard from [employer]. Thrive Questionnaire Date Thrive assessed: 07/26/24 I am a: Patient What is your living situation today?: I have a steady place to live Within the past 12 months, did the food you bought not last and you didn't have the money to get more?: Never true Within the past 12 months, did you worry whether your food would run out before you got money to buy more?: Never true Do you have trouble paying for medicines?: No Do you have trouble getting transportation to medical appointments?: No Do you have trouble paying your heating and electricity bill?: No Do you have trouble taking care of your child, family member or friend?: No Do you have trouble with day-to-day activities such as bathing, preparing meals, shopping, managing finances, etc.?: No Are you currently unemployed and looking for a job?: No Are you interested in more education?: No Please select the resources that you would like help with: None Currently or been in a relationship where the following occur: No concerns reported THRIVE Score: 0 AUDIT C Alcohol Use Questionnaire (AUDIT-C) 1. How often do you have a drink containing alcohol?: Never Total Score: 0 GENA-7 AMB Questionnaire GENA-7 Date GENA - 7 assessed: 07/26/24 Feeling nervous, anxious, or on edge: 0 = Not at all Not being able to stop or control worryin = Not at all Worrying too much about different things: 0 = Not at all Trouble relaxin = Not at all Being so restless that it is hard to sit still: 0 = Not at all Becoming easily annoyed or irritable: 0 = Not at all Feeling afraid as if something awful might happen: 0 = Not at all Total GENA-7 score (0-4 normal; 5-9 mild; 10-14 moderate; 15-21 severe): 0 Source: Developed by Drs. Maynor Colon, Viviana Jacobson, Dandy Garcia and colleagues, with an educational leonard from [employer]. Review of Systems Const Denies body aches, Denies chills, Denies fever(s), Reports headache(s) and Denies poor appetite Eyes Details: No change in vision ENT Reports dizziness (Positional) and Reports headache(s) Card Denies chest pain, Denies syncope, Denies edema, Denies irregular heart rhythm, Denies lightheadedness and Denies dyspnea Resp Denies cough and Denies dyspnea GI Reports no additional complaints Reports no additional complaints Musc Reports no additional complaints and Denies abnormal gait Skin/Breast Reports system reviewed and no additional complaints, except as documented Neuro Denies abnormal gait, Reports dizziness (Positional), Denies syncope and Reports headache(s) Psych Reports no additional complaints Physical exam (Primary Care) Vital Signs: Last Vital Signs Temp 97.1 F 07/26/24 10:41 Oxygen Delivery Method Room Air 07/26/24 10:41 BMI result Body Mass Index 33.6 Tobacco/Smoking Status: Tobacco use Status Tobacco use date assessed 02/02/24 07/26/24 10:40 Patient Tobacco Use Status Former Tobacco user 07/26/24 10:40 Tobacco use type Cigarette 07/26/24 10:40 e-Cigarette/Vaping Use Never Used 07/26/24 10:40 PHQ-9: PHQ-9 Score PHQ-9: Total score 0 07/26/24 10:40 Depression Screening Interpretation: Negative Thrive Assessment: Date of Thrive Assessment Date Thrive assessed 07/26/24 07/26/24 10:40 Currently or been in a relationship where the following occur: No concerns reported Const General: cooperative, healthy appearing, comfortable and no acute distress Orientation/consciousness: patient oriented x3 HENMT Head: Yes normocephalic Ears: hearing grossly normal bilaterally General nose exam: Normal external nose present Eyes General: appearance normal, both eyes and all related structures Conjunctivae: conjunctivae normal Pupils: Equal, round and reactive pupils present Neck Neck: Yes full ROM and Yes no lymphadenopathy Resp Effort & Inspection: normal respiratory effort Auscultation: clear to auscultation bilaterally, no crackles, no rales, no rhonchi and no wheezes Cardio Rate: regular rate Rhythm: regular rhythm Skin General skin exam: no rashes or lesions noted Neuro General: patient oriented x3 Cranial nerves: Yes CN's II-XII intact bilaterally, Yes Facial sensation intact/muscles of mastication intact, Yes Equal, round and reactive pupils present, Yes Bilaterally intact EOM present, Yes Nystagmus not present, Yes Normal facial strength present, Yes Ability to bilaterally rotate head present and Yes Ability to bilaterally elevate shoulders present Cognition (Neuro): normal cognition Gait exam (Neuro): Normal gait present Extrem General: Yes normal to inspection, Yes full ROM and No edema Psych Affect: normal affect Attitude: cooperative Insight: Good insight present (Psych) Judgement: Good judgement present (Psych) Coding Level of Care Code Est Pt Level 4 (69300) Diagnoses Headache R51.9 Dizziness R42 Assessment & Plan Assessment & Plan (1) Headache: Code(s): R51.9 - Headache, unspecified Category: Medical Plan: Patient complaining of the headache after the fall. In this case, the CT scan ruled out intracranial hemorrhage, suggesting that the headache is likely associated with a concussion. The application of Tylenol remains the preferred intervention for pain, with emphasis on rest and avoidance of bright lights or mental stimuli to mitigate concussion effects. Observational steps include careful monitoring of symptom progression, emphasizing limited position changes to address dizziness likely attributable to vertigo. Should persistent symptoms persist or escalate, further evaluation will be necessary, including possible physical therapy to address vertigo. A follow-up meeting with Dr. Aquino is scheduled in August. Neuro exam is reassuring today. (2) Dizziness: Code(s): R42 - Dizziness and giddiness Category: Medical Plan: Patient having positional dizziness after waking up. States when he goes from lying to standing he will occasionally have dizziness which resolved spontaneously and a few minutes. Likely related to symptoms of vertigo or de hydration. Advised patient to stay well hydrated and if dizziness persists to reach out to the office. Plan Patient was informed and verbally consented to the use of an ambient scribe for clinic note documentation during this visit. This note was constructed using voice recognition software. While every effort has been made to ensure accuracy and vendor specialist, still areas may have been included sometimes these areas may affect the content or meeting of the given symptoms. Total time spent caring for the patient today was 20 minutes. This i ncludes time spent before the visit reviewing the chart, time spent during the visit, and time spent after the visit and documentation.
[2024-07-26 10:41] VITALS: BP 132/60; PULSE 73; TEMP 36.2; O2SAT 92; BMI 33.6
== END 2024-07-26 11:15 | disposition home or self-care (01) ==
PROVIDERS: PCP Internal Medicine
DX: R51.9 Headache, unspecified (principal); R42 Dizziness and giddiness

== ENCOUNTER → 2024-07-26 10:26 | Outpatient (BNVA) | payer OTHER, SELFPAY | PROVIDERS: PCP Internal Medicine | DX: R51.9 Headache, unspecified (principal); R42 Dizziness and giddiness | CPT/HCPCS: 99212 ==

== ENCOUNTER 2024-08-07 10:38 | Outpatient (AMB) | payer OTHER, SELFPAY ==
--- NOTE | 2024-08-07 11:09 | A.OFFPC_ITS ---
Vital Signs 08/07/24 11:10 Height 5 ft 7 in Weight 213 lb BMI 33.4 BP 136/70 Blood Pressure Location Lt brachial Position Sitting Pulse 71 Pulse Source Pulse Oximeter Pulse Oximetry (%) 92 Oxygen Delivery Method Room Air Intake Visit Reasons: DM Allergies lisinopril Adverse Reaction (Intermediate, Verified 08/07/24 11:10) high creatinine Tobacco use date assessed: 07/26/24 Fall risk assessment: 1 Fall in past year Last assessed Fall Risk: 08/07/24 Dental Screening Dental Screen Date: 07/26/24 COUNTS INCLUDE 234 BEDS AT THE [facility] Medical History Preop exam for internal medicine Diverticulosis DM2 (diabetes mellitus, type 2) Tubular adenoma of colon Right leg DVT COPD (chronic obstructive pulmonary disease) Romero's cyst of knee Exertional chest pain Constipation Rectal bleeding History of DVT (deep vein thrombosis) Hypercholesterolemia Anemia Obstructive sleep apnea Cognitive impairment Coronary artery disease History of renal calculi Polysubstance abuse Lumbar spondylosis Hypertension Current use of anticoagulant therapy Surgical History History of heart artery stent History of endoscopy (~2020) History of cystoscopy (~2001) History of lithotripsy (~2001) History of colonoscopy (~2020) History of cardiac cath (~06/2009) History of hand surgery Family History Father No problems noted. Mother Diabetes Hypertension Stroke Family/Other No problems noted. Family/Other Leukemia Other Mental health disorder Social History Household Members: None Housing: Apartment Are you a primary home health care provider to a significant other at home: No Do you presently have visiting nurse or other home services: Yes Alcohol intake: never Patient Tobacco Use Status: Former Tobacco user Tobacco use type: Cigarette Years Smoked: 10 years e-Cigarette/Vaping Use: Never Used Second Hand Smoke Exposure: Yes Advance Directives Date on File: 10/13/21 service: No Current occupational status: retired Cognitive needs: No Hearing needs: No Vision needs: Yes Questionnaire PHQ-9 Over the last 2 weeks, how often have you been bothered by any of the following problems? 1. Little interest or pleasure in doing things: not at all 2. Feeling down, depressed, or hopeless: not at all 3. Trouble falling or staying asleep, or sleeping too much: not at all 4. Feeling tired or having little energy: not at all 5. Poor appetite or overeating: not at all 6. Feeling bad about yourself - or that you are a failure or have let yourself or your family down: not at all 7. Trouble concentrating on things, such as reading the newspaper or watching television: not at all 8. Moving or speaking so slowly that other people could have noticed. Or the opposite - being so fidgety or restless that you have been moving around a lot more than usual: not at all 9. Thoughts that you would be better off or of hurting yourself in some way: not at all Total score: 0 Depression Screening Interpretation: Negative Depression Screening Done: Yes Source: Developed by Drs. Mayonr Colon, Viviana Jacobson, Dandy Garcia and colleagues, with an educational leonrad from [employer]. Thrive Questionnaire Date Thrive assessed: 07/26/24 GENA-7 AMB Questionnaire GENA-7 Date GENA - 7 assessed: 07/26/24 Source: Developed by Drs. Maynor Colon, Viviana Jacobson, Dandy Garcia and colleagues, with an educational leonard from [employer]. Physical exam (Primary Care) Vital Signs: Last Vital Signs Pulse 71 08/07/24 11:10 BP 136/70 08/07/24 11:10 Pulse Ox 92 08/07/24 11:10 Oxygen Delivery Method Room Air 08/07/24 11:10 BMI result Body Mass Index 33.4 Tobacco/Smoking Status: Tobacco use Status Tobacco use date assessed 07/26/24 08/07/24 11:12 Patient Tobacco Use Status Former Tobacco user 08/07/24 11:12 Tobacco use type Cigarette 08/07/24 11:12 e-Cigarette/Vaping Use Never Used 08/07/24 11:12 PHQ-9: PHQ-9 Score PHQ-9: Total score 0 08/07/24 11:56 Depression Screening Interpretation: Negative Thrive Assessment: Date of Thrive Assessment Date Thrive assessed 07/26/24 08/07/24 11:12 Const General: alert; No acute distress Eyes Conjunctivae: conjunctivae normal Resp Auscultation: clear to auscultation bilaterally Cardio Rate: regular rate Rhythm: regular rhythm GI Inspection: Yes normal to inspection Extrem General: Yes normal to inspection and No edema Results AMB Hemoglobin A1c AMB Hemoglobin A1c 5.3 % Last Edit by Ofelia Guzman CMA on 08/07/24 11 :31 Results Reviewed Results Reviewed: Laboratory Last Values Hgb A1c (Clinic) 5.3 % (4.0-6.0) 08/07/24 11:31 Coding Level of Care Code Est Pt Level 4 (69307) Complex EM visit Add On G2211 Diagnoses History of DVT (deep vein thrombosis) Z86.718 Essential hypertension I10 Hypertension type: essential hypertension Hypercholesterolemia E78.00 Simple chronic bronchitis J41.0 COPD type: chronic bronchitis Chronic bronchitis type: simple Tubular adenoma of colon D12.6 Coronary artery disease involving [place] coronary artery of [place] heart without angina pectoris I25.10 Associated angina: without angina Coronary Disease-Associated Artery/Lesion type: [place] artery [place] vs. transplanted heart: [place] heart Type 2 diabetes mellitus with hyperglycemia E11.65 Head trauma S09.90XA Assessment & Plan Assessment & Plan (1) History of DVT (deep vein thrombosis): Comment: (Hx Right leg DVT 07/2009 and Right leg DVT 08/2021) Code(s): Z86.718 - Personal history of other venous thrombosis and embolism Category: Medical (2) Hypertension: Code(s): I10 - Essential (primary) hypertension Category: Medical Qualifiers: Hypertension type: essential hypertension Qualified Code(s): I10 - Essential (primary) hypertension (3) Hypercholesterolemia: Code(s): E78.00 - Pure hypercholesterolemia, unspecified Category: Medical (4) COPD (chronic obstructive pulmonary disease): Code(s): J44.9 - Chronic obstructive pulmonary disease, unspecified Category: Medical Qualifiers: COPD type: chronic bronchitis Chronic bronchitis type: simple Qualified Code(s): J41.0 - Simple chronic bronchitis (5) Tubular adenoma of colon: Comment: February 2022 Code(s): D12.6 - Benign neoplasm of colon, unspecified Category: Medical (6) Coronary artery disease: Comment: [place] July 2009 cardiac catheterization June 2009 no obstructive Code(s): I25.10 - Atherosclerotic heart disease of [place] coronary artery without angina pectoris Category: Medical Qualifiers: Associated angina: without angina Coronary Disease-Associated Artery/Lesion type: [place] artery [place] vs. transplanted heart: [place] heart Qualified Code(s): I25.10 - Atherosclerotic heart disease of [place] coronary artery without angina pectoris (7) Type 2 diabetes mellitus with hyperglycemia: Comment: March 2020 hemoglobin A1c of 6.6 [facility] Code(s): E11.65 - Type 2 diabetes mellitus with hyperglycemia Category: Medical (8) Head trauma: Code(s): S09.90XA - Unspecified injury of head, initial encounter Category: Medical Plan History of Present Illness The patient is a 69-year-old male presenting with a follow-up visit. He has difficulty tolerating CPAP therapy for his obstructive sleep apnea. His COPD is stable at present, and he manages essential hypertension and hypercholesterolemia with prescribed medications including metoprolol and Crestor. His past medical history is notable for coronary artery disease and episodes of deep vein thrombosis, the latest of which was in 2021. He is on anticoagulation therapy with Xarelto. His diabetes mellitus is controlled with semaglutide, and he has a history of chronic anemia with normal kidney function but elevated liver function tests due to fatty liver disease. Notably, he had an emergency room visit on July 24 following a slip and fall. A CT scan of the head was negative, while a cervical CT scan revealed mild multilevel spondylosis. He is due for a follow-up colonoscopy this year. Health Maintenance - Reminder for repeat colonoscopy this year, last performed in 2021. - LDL cholesterol level at goal. - Blood sugar levels controlled with semaglutide. - Continued anticoagulation therapy with Xarelto for the prevention of thromboembolism. Social History Review of Systems - Neurological: Reports experiencing headaches and dizziness. Physical Exam Results - Labs: Chronic anemia noted as of April 2021 with normal electrolytes and renal function. - Tests and Diagnostics: CT scan of the brain negative; cervical CT scan showing mild multilevel spondylosis. Elevated liver function tests indicating fatty liver disease. Plan Management continues with metoprolol and hydralazine for hypertension and Crestor for hypercholesterolemia. The diabetic condition is controlled with semaglutide. Anticoagulation therapy continues with Xarelto due to past episodes of DVT. A repeat colonoscopy should be prioritized for health maintenance. Monitoring and evaluating liver function and anemia persists through routine checks. Consider additional patient remarks regarding headaches and dizziness alongside existing stable lab results. Significant attention to anticoagulation remains, reducing risks associated with deep vein thrombosis. Patient was informed and verbally consented to the use of an ambient scribe for clinic note documentation during this visit. Discussion Notes I discussed with the patient the importance of adhering to current medication regimens for his hypertension, hypercholesterolemia, and diabetes mellitus. We reviewed continuing anticoagulation therapy with Xarelto given his history of deep vein thrombosis, highlighting the risks versus benefits associated with discontinuation. We also discussed the importance of scheduling the recommended colonoscopy this year. I ensured the patient understood the normal findings from recent head CT and reviewed cervical spine results. We discussed prioritization of lifestyle modifications for fatty liver management and future follow-up scopes for preventative care. Patient Instructions - Continue taking prescribed medications: metoprolol, hydralazine, Crestor, and semaglutide as directed. - Maintain anticoagulation therapy with Xarelto daily. - Schedule a repeat colonoscopy within this year as previously advised. - Maintain a healthy lifestyle, focusing on diet modification for liver health. - Contact the office if dizziness or headaches worsen or for any new concerning symptoms. - Return to clinic for routine follow-up and monitoring. Orders: Orders AMB Hemoglobin A1c Today Z13.9 - Encounter for screening, unspecified Medications: New walker As directed 1 ea 0RF S09.90XA - Unspecified injury of head, initial encounter
[2024-08-07 11:10] VITALS: BP 136/70; PULSE 71; O2SAT 92; BMI 33.4
== END 2024-08-07 12:02 | disposition home or self-care (01) ==
PROVIDERS: PCP Internal Medicine; Visit Provider Internal Medicine
DX: J41.0 Simple chronic bronchitis (principal); E11.65 Type 2 diabetes mellitus with hyperglycemia; Z86.718 Personal history of other venous thrombosis and embolism; I10 Essential (primary) hypertension; E78.00 Pure hypercholesterolemia, unspecified; D12.6 Benign neoplasm of colon, unspecified; I25.10 Atherosclerotic heart disease of native coronary artery without angina pectoris; S09.90XA Unspecified injury of head, initial encounter

== ENCOUNTER → 2024-08-07 10:38 | Outpatient (BNVA) | payer OTHER, SELFPAY | PROVIDERS: PCP Internal Medicine; Visit Provider Internal Medicine | DX: I10 Essential (primary) hypertension (principal); E78.00 Pure hypercholesterolemia, unspecified; J41.0 Simple chronic bronchitis; I25.10 Atherosclerotic heart disease of native coronary artery without angina pectoris; D12.6 Benign neoplasm of colon, unspecified; E11.65 Type 2 diabetes mellitus with hyperglycemia; Z86.718 Personal history of other venous thrombosis and embolism | CPT/HCPCS: 83036; 99212 ==

== ENCOUNTER 2024-09-26 14:35 | Outpatient (AMB) | payer OTHER, SELFPAY ==
[2024-09-26 14:46] VITALS: BP 104/62; PULSE 64; O2SAT 95; BMI 33.5
--- NOTE | 2024-09-26 14:46 | A.OFFVIS_ITS ---
Vital Signs 09/26/24 14:46 Height 5 ft 7 in Weight 213 lb 13.574 oz BMI 33.5 BP 104/62 Blood Pressure Location Lt brachial Position Sitting Pulse 64 Pulse Source Pulse Oximeter Pulse Oximetry (%) 95 Oxygen Delivery Method Room Air Intake Visit Reasons: COPD Allergies lisinopril Adverse Reaction (Intermediate, Verified 09/26/24 14:51) high creatinine HPI Comments Details: The patient is a 69-year-old gentleman with a known history of CAD in addition to tobacco dependency in the past who apparently has been complaining of worsening dyspnea on exertion with mild activity. The patient states that even going up a flight of stairs he gets very winded. He needs to usually take a break after doing so. He has been evaluated by other specialists. He was noted to be hypoxic. Therefore he was referred to Pulmonary. Part of the workup included a chest x-ray which I personally reviewed demonstrating no acute diseas e. In the office we did go for 6 minutes walk test. Unfortunately the patient's heart rate increased to 160 with minimal activity and he came short of breath. His pulse ox did drop the lowest to 91% therefore he did not qualify for oxygen at this time. It seems that his respiratory symptoms worsen when the heart rate increased dramatically. He does not have a history of atrial fibrillation at this time. Also to note the patient carries a diagnosis of DVT. The patient has been taken off anticoagulation at this time. I will have him undergo repeat EKG in addition to blood work Including a D-dimer. 07/09/2021 the patient has a telephone visit today. Apparently the patient has been having worsening lower extremity swelling. He did go to the ER yesterday and he was diagnosed with another recurrent DVT. He was given a prescription for either Eliquis or Xarelto. However, talking to the daughter and the patient did have not been able to picker/puller the medication at the pharmacy. This is be significantly alarming. He is complaining of shortness of breath. I did emphasize the daughter that if the medication is not available as of yet at the pharmacy that he goes back to the ER to be evaluated further for thromboembolic disease in the chest area and also to be provided with the anticoagulation medication that he requires urgently. In the office he did try to perform pulmonary function studies but he had a hard time doing it so he could not completed. The patient and or his daughter will call back the to the office of the running into any difficulties with his respiratory issues. But I did again emphasize that any worsening symptoms he needs to go back to the ER to be evaluated for further clot burden. 10/01/2021 the patient is here for pulmonary follow-up visit. Overall the patient has been doing better. He continues on the anticoagulation with good effect. Heart rate seems to be better controlled now and therefore his breathing also has improved. His like however still swollen still bothersome to ambulate. Will go ahead make sure that he gets a repeat ultrasound to make sure the clots clear. He may be left with post thrombotic syndrome and therefore the swelling of the leg may be something more chronic. At this point the patient is not using any maintenance inhalers. I will make sure he has a rescue inhaler that he can have a hand as needed. Otherwise will follow-up in 6 months. 05/25/2022 the patient is here for pulmonary follow-up visit. The patient overall has been doing well. Respiratory status has been stable. He does not have a rescue inhaler and does not feel like he needs 1. He has been taking his anticoagulation for DVT. His last ultrasound demonstrated a chronic clot in the right popliteal vein. Will have him repeat the ultrasound to make sure that there is resolution of the clot. In addition to that he has underlying sleep apnea. He has not been using the CPAP because he is missing supplies. Explained to him that he is not going to get supplies if he is not using it. Therefore, in order for him to get supplies again in prior any other sleep study. He denies any significant daytime drowsiness at this time. His Daggett score is 6/24. Explained to him that his cardiovascular issues are unstable and if he develops increasing daytime drowsiness he should have a repeat sleep study as the CPAP therapy will help decrease cardiovascular risks. The patient does not have any recent imaging studies to review otherwise from the chest. Will follow-up in 6-8 months. The patient will call the office if he consider having a sleep study done earlier than that. 06/14/2023 the patient is here for pulmonary follow-up visit. Overall the patient is doing well. He still complaining of right lower extremity swelling. He also gets some neuropathy like discomfort both extremities. The patient had a right-sided lower extremity Doppler back in July 2022 demonstrating nonocclusive clot. He has not had any further imaging since then. He continues on Xarelto. He will be on it likely lifelong. The patient likely has some component of post thrombotic syndrome. He does elevate the lower extremities when he sleeps. As far as his sleep is well. The patient does wake up rested. His Daggett score still 6/24. He has not use CPAP. Does not appear to need at this time will go ahead and repeat his ultrasound to make sure the clot is gone. The patient understands that he may have some recanalization of the vessel but indeed the organized clot may stay present. The patient is otherwise without other complaints will follow-up next year. 09/26/2024 the patient is here for pulmonary follow-up visit. The patient overall has been doing okay. He continues on the Xarelto. He has been still having significant swelling of his right lower extremity consistent with the chronic thromboembolic disease and post thrombotic syndrome. He recently had an injury where it got infected antibiotics. He continues on the Xarelto with no significant issues. Will go ahead and repeat the ultrasound to see if the area looks any improved compared to last year and also see if although occupational therapy could evaluate him for lymphedema in for his significant amount of swelling. The patient also could consider seeing vascular surgery to see if any other alternative interventions are available. At least from a respiratory status is doing well. He does have a smoking history in I did offer him an inhaler in the past but the patient opted not to use 1 at that time and he still does not feel like he needs 1. Patient will return year he has not issues prior to this he will call for an earlier assessment. [facility] Medical History (Updated 09/26/24 @ 15:30 by Tyrel Feng MD) Lymphadenoma Chronic deep vein thrombosis (DVT) Preop exam for internal medicine Diverticulosis DM2 (diabetes mellitus, type 2) Tubular adenoma of colon Right leg DVT COPD (chronic obstructive pulmonary disease) Romero's cyst of knee Exertional chest pain Constipation Rectal bleeding History of DVT (deep vein thrombosis) Hypercholesterolemia Anemia Obstructive sleep apnea Cognitive impairment Coronary artery disease History of renal calculi Polysubstance abuse Lumbar spondylosis Hypertension Current use of anticoagulant therapy Surgical History History of heart artery stent History of endoscopy (~2020) History of cystoscopy (~2001) History of lithotripsy (~2001) History of colonoscopy (~2020) History of cardiac cath (~06/2009) History of hand surgery Family History Father No problems noted. Mother Diabetes Hypertension Stroke Family/Other No problems noted. Family/Other Leukemia Other Mental health disorder Social History Household Members: None Housing: Apartment Are you a primary child daycare worker to a significant other at home: No Do you presently have visiting nurse or other home services: Yes Alcohol intake: never Patient Tobacco Use Status: Former Tobacco user Tobacco use type: Cigarette Years Smoked: 10 years e-Cigarette/Vaping Use: Never Used Second Hand Smoke Exposure: Yes Advance Directives Date on File: 10/13/21 service: No Current occupational status: retired Cognitive needs: No Hearing needs: No Vision needs: Yes Review of Systems Const Denies chills, Denies fatigue, Denies fever(s), Denies weight gain and Denies weight loss ENT Denies dizziness Card Denies chest pain, Reports leg edema, Denies lightheadedness, Denies palpitations, Reports dyspnea on exertion, Denies orthopnea and Denies other Resp Denies cough and Reports dyspnea on exertion GI Denies hematochezia and Denies change in stool character Reports no additional complaints Musc Denies abnormal gait, Denies muscle weakness, Denies numbness, Denies radiating pain into limb and Denies tingling Neuro Denies abnormal gait, Denies dizziness, Denies numbness and Denies tingling Psych Reports no additional complaints Endo Denies fatigue and Denies palpitations Physical Exam Vital Signs: Last Vital Signs Pulse 64 09/26/24 14:46 BP 104/62 09/26/24 14:46 Pulse Ox 95 09/26/24 14:46 Oxygen Delivery Method Room Air 09/26/24 14:46 BMI result Body Mass Index 33.5 Const General: alert Neck Neck: Yes normal visual inspection, Yes full ROM and Yes no lymphadenopathy Chest Chest palpation & inspection: normal inspection of the chest Resp Auscultation: clear to auscultation bilaterally and no wheezes Cardio Rate: regular rate Rhythm: regular rhythm Heart sounds: S1 normal heart sound present and S2 normal heart sound present GI Palpation (GI): Soft to palpation and nontender Auscultation: normal bowel sounds Skin General skin exam: rashes and/or lesions noted Extrem Right lower extremity: edema Details: pitting and 4+ Assessment & Plan Assessment & Plan (1) SOB (shortness of breath): Code(s): R06.02 - Shortness of breath Category: Medical (2) COPD (chronic obstructive pulmonary disease): Code(s): J44.9 - Chronic obstructive pulmonary disease, unspecified Category: Medical Qualifiers: COPD type: chronic bronchitis Chronic bronchitis type: simple Qualified Code(s): J41.0 - Simple chronic bronchitis (3) Right leg DVT: Code(s): I82.401 - Acute embolism and thrombosis of unspecified deep veins of right lower extremity Category: Medical Qualifiers: Affected thrombotic vein of extremity: other lower extremity vein Chronicity: chronic Qualified Code(s): I82.591 - Chronic embolism and thrombosis of other specified deep vein of right lower extremity (4) Chronic deep vein thrombosis (DVT): Code(s): I82.509 - Chronic embolism and thrombosis of unspecified deep veins of unspecified lower extremity Category: Medical Qualifiers: Affected thrombotic vein of extremity: unspecified lower extremity distal vein DVT location: lower extremity Laterality: right Qualified Code(s): I82.5Z1 - Chronic embolism and thrombosis of unspecified deep veins of right distal lower extremity (5) Lymphadenoma: Code(s): D36.9 - Benign neoplasm, unspecified site Category: Medical Plan Continue Xarelto Repeat LE doppler consider VIVIANE as needed Lymphaedema clinic consider vascular surgery eval F/U 12 months Orders: Orders US venous duplex LE RT Today I82.509 - Chronic embolism and thrombosis of unspecified deep veins of unspecified lower extremity OT Evaluation and Treatment Today D36.9 - Benign neoplasm, unspecified site Coding Level of Care Code Est Pt Level 4 (96136) Complex EM visit Add On G2211 Diagnoses SOB (shortness of breath) R06.02 Simple chronic bronchitis J41.0 COPD type: chronic bronchitis Chronic bronchitis type: simple Chronic deep vein thrombosis (DVT) of other vein of right lower extremity I82.591 Affected thrombotic vein of extremity: other lower extremity vein Chronicity: chronic Chronic deep vein thrombosis (DVT) of distal vein of right lower extremity I82.5Z1 Affected thrombotic vein of extremity: unspecified lower extremity distal vein DVT location: lower extremity Laterality: right Lymphadenoma D36.9 Time Spent (min) 17
== END 2024-09-26 15:11 | disposition home or self-care (01) ==
LOC: HO.HPS 14:35
PROVIDERS: PCP Internal Medicine; Visit Provider Hospitalist
DX: R06.02 Shortness of breath (principal); J41.0 Simple chronic bronchitis; I82.591 Chronic embolism and thrombosis of other specified deep vein of right lower extremity; I82.5Z1 Chronic embolism and thrombosis of unspecified deep veins of right distal lower extremity; D36.9 Benign neoplasm, unspecified site
CPT/HCPCS: 99214; G2211

== ENCOUNTER → 2024-09-26 14:35 | Outpatient (BNVA) | payer OTHER, SELFPAY | PROVIDERS: PCP Internal Medicine; Visit Provider Hospitalist | DX: J41.0 Simple chronic bronchitis (principal); I82.591 Chronic embolism and thrombosis of other specified deep vein of right lower extremity; R06.02 Shortness of breath; D36.9 Benign neoplasm, unspecified site; F17.210 Nicotine dependence, cigarettes, uncomplicated | CPT/HCPCS: 99212 ==

== ENCOUNTER 2024-09-30 17:09 | Outpatient (AMB) | payer OTHER, SELFPAY ==
--- NOTE | 2024-09-30 17:14 | MHC.PC.OV ---
Vital Signs 09/30/24 17:15 Height 5 ft 7 in Weight 213 lb BMI 33.4 BP 128/72 Blood Pressure Location Lt brachial Position Sitting Pulse 77 Pulse Source Pulse Oximeter Pulse Oximetry (%) 98 Oxygen Delivery Method Room Air Intake Visit Reasons: leg wound, difficulty walking, frequent falls Allergies lisinopril Adverse Reaction (Intermediate, Verified 09/30/24 17:16) high creatinine Medication List - Last Reconciled 09/30/24 by Nevaeh Aquino MD ascorbate calcium (vitamin C) 500 mg PO DAILY 90 days blood sugar diagnostic (FreeStyle Lite Strips) As directed check blood sugars once a day blood-glucose meter (FreeStyle Lite Meter kit) As directed clonazepam 1 mg PO DAILY clonidine HCl 0.1 mg PO BID 90 days salomón.stocking,knee,reg,xlrg As directed cyanocobalamin (vitamin B-12) 1,000 mcg PO DAILY 90 days cyclobenzaprine 10 mg PO TID [DIABETIC SHOES As directed] diclofenac sodium 1% (Voltaren Arthritis Pain) 4 grams topical QID docusate sodium 100 mg PO BEDTIME donepezil 10 mg PO BEDTIME 30 days ezetimibe (Zetia) 10 mg PO DAILY ferrous sulfate (Feosol) 325 mg PO DAILY 90 days gabapentin 300 mg PO DAILY hydralazine 25 mg PO Q12H 90 days lancets (FreeStyle Lancets) As directed check the blood sugars once a day linaclotide (Linzess) 145 mcg PO DAILY memantine (Namenda) 5 mg PO QAM methylcellulose (laxative) (Fiber Therapy (methylcellulose)) 500 mg PO DAILY metoprolol succinate ER 50 mg PO DAILY nitroglycerin (Nitrostat) 0.4 mg sublingual Q5M PRN pantoprazole 40 mg PO BID rivaroxaban (Xarelto) 20 mg PO DAILY 90 days [ROLLATOR As directed] rosuvastatin (Crestor) 40 mg PO DAILY semaglutide 2 mg (0.75 mL) subcut QWEEK 30 days topiramate 25 mg PO BID 90 days tramadol 50 mg PO TID PRN 30 days trazodone 50 mg PO BEDTIME PRN walker As directed walker (Ultra-Light Rollator misc) As directed [walker with seat and wheels As directed] Tobacco use date assessed: 07/26/24 Fall risk assessment: 2 + Falls in past year Last assessed Fall Risk: 09/30/24 Dental Screening Dental Screen Date: 07/26/24 [facility] Medical History (Updated 09/30/24 @ 17:59 by Nevaeh Aquino MD) Lymphadenoma Chronic deep vein thrombosis (DVT) Preop exam for internal medicine Diverticulosis DM2 (diabetes mellitus, type 2) Tubular adenoma of colon Right leg DVT COPD (chronic obstructive pulmonary disease) Romero's cyst of knee Exertional chest pain Constipation Rectal bleeding History of DVT (deep vein thrombosis) Hypercholesterolemia Anemia Obstructive sleep apnea Cognitive impairment Coronary artery disease History of renal calculi Polysubstance abuse Lumbar spondylosis Hypertension Current use of anticoagulant therapy Surgical History History of heart artery stent History of endoscopy (~2020) History of cystoscopy (~2001) History of lithotripsy (~2001) History of colonoscopy (~2020) History of cardiac cath (~06/2009) History of hand surgery Family History Father No problems noted. Mother Diabetes Hypertension Stroke Family/Other No problems noted. Family/Other Leukemia Other Mental health disorder Social History Household Members: None Housing: Apartment Are you a primary child care centre director to a significant other at home: No Do you presently have visiting nurse or other home services: Yes Alcohol intake: never Patient Tobacco Use Status: Former Tobacco user Tobacco use type: Cigarette Years Smoked: 10 years e-Cigarette/Vaping Use: Never Used Second Hand Smoke Exposure: Yes Advance Directives Date on File: 10/13/21 service: No Current occupational status: retired Cognitive needs: No Hearing needs: No Vision needs: Yes Questionnaire PHQ-9 Over the last 2 weeks, how often have you been bothered by any of the following problems? 1. Little interest or pleasure in doing things: more than half the days 2. Feeling down, depressed, or hopeless: more than half the days 3. Trouble falling or staying asleep, or sleeping too much: more than half the days 4. Feeling tired or having little energy: more than half the days 5. Poor appetite or overeating: more than half the days 6. Feeling bad about yourself - or that you are a failure or have let yourself or your family down: more than half the days 7. Trouble concentrating on things, such as reading the newspaper or watching television: more than half the days 8. Moving or speaking so slowly that other people could have noticed. Or the opposite - being so fidgety or restless that you have been moving around a lot more than usual: more than half the days 9. Thoughts that you would be better off or of hurting yourself in some way: more than half the days Total score: 18 Depression Screening Interpretation: Positive Depression Screening Done: Yes 83623 - PHQ-9 Billing: Yes Source: Developed by Drs. Maynor Colon, Viviana Jacobson, Dandy Garcia and colleagues, with an educational leonard from [employer]. Thrive Questionnaire Date Thrive assessed: 07/26/24 I am a: Parent/Caregiver What is your living situation today?: I have a steady place to live Within the past 12 months, did the food you bought not last and you didn't have the money to get more?: Never true Within the past 12 months, did you worry whether your food would run out before you got money to buy more?: Never true Do you have trouble paying for medicines?: I choose not to answer this question Do you have trouble getting transportation to medical appointments?: I choose not to answer this question Do you have trouble paying your heating and electricity bill?: I choose not to answer this question Do you have trouble taking care of your child, family member or friend?: I choose not to answer this question Do you have trouble with day-to-day activities such as bathing, preparing meals, shopping, managing finances, etc.?: I choose not to answer this question Are you currently unemployed and looking for a job?: I choose not to answer this question Are you interested in more education?: I choose not to answer this question Please select the resources that you would like help with: None Currently or been in a relationship where the following occur: I choose not to answer THRIVE Score: 0 AUDIT C Alcohol Use Questionnaire (AUDIT-C) 1. How often do you have a drink containing alcohol?: Never Total Score: 0 GENA-7 AMB Questionnaire GENA-7 Date GENA - 7 assessed: 07/26/24 Feeling nervous, anxious, or on edge: 0 = Not at all Not being able to stop or control worryin = Not at all Worrying too much about different things: 0 = Not at all Trouble relaxin = Not at all Being so restless that it is hard to sit still: 0 = Not at all Becoming easily annoyed or irritable: 0 = Not at all Feeling afraid as if something awful might happen: 0 = Not at all Total GENA-7 score (0-4 normal; 5-9 mild; 10-14 moderate; 15-21 severe): 0 Source: Developed by Drs. Maynor Colon, Viviana Jacobson, Dandy Garcia and colleagues, with an educational leonard from [employer]. GEAN-7 Assessment Billing GENA-7 Assessment Tool: GENA-7 Assessment 00232 Physical exam (Primary Care) Vital Signs: Last Vital Signs Pulse 77 09/30/24 17:15 BP 128/72 09/30/24 17:15 Pulse Ox 98 09/30/24 17:15 Oxygen Delivery Method Room Air 09/30/24 17:15 BMI result Body Mass Index 33.4 Tobacco/Smoking Status: Tobacco use Status Tobacco use date assessed 07/26/24 09/30/24 17:17 Patient Tobacco Use Status Former Tobacco user 09/30/24 17:17 Tobacco use type Cigarette 09/30/24 17:17 e-Cigarette/Vaping Use Never Used 09/30/24 17:17 PHQ-9: PHQ-9 Score PHQ-9: Total score 18 09/30/24 17:57 Depression Screening Interpretation: Positive Thrive Assessment: Date of Thrive Assessment Date Thrive assessed 07/26/24 09/30/24 17:17 Currently or been in a relationship where the following occur: I choose not to answer Const General: alert; No acute distress Eyes Conjunctivae: conjunctivae normal Resp Auscultation: clear to auscultation bilaterally Cardio Rate: regular rate Rhythm: regular rhythm GI Inspection: Yes normal to inspection Extrem Other: Bilateral lower extremity swelling left leg has no discoloration while the right leg dusky with open sores 1-2 cm desquamated lesions Coding Level of Care Code Est Pt Level 4 (58967) Diagnoses Venous stasis dermatitis I87.2 Ulcer of right leg L97.919 Type 2 diabetes mellitus with hyperglycemia E11.65 Additional Codes GENA-7 Assessment Billing - GENA-7 Assessment Tool: GENA-7 Assessment 27491 ([id number]) PHQ-9 - 14281 - PHQ-9 Billing: Yes ([id number]) Assessment & Plan Assessment & Plan (1) Venous stasis dermatitis: Code(s): I87.2 - Venous insufficiency (chronic) (peripheral) Category: Medical Plan: When sitting down elevate the legs, exercise, and support stockings (2) Ulcer of right leg: Comment: 11/2023 Code(s): L97.919 - Non-pressure chronic ulcer of unspecified part of right lower leg with unspecified severity Category: Medical (3) Type 2 diabetes mellitus with hyperglycemia: Comment: March 2020 hemoglobin A1c of 6.6 [facility] Code(s): E11.65 - Type 2 diabetes mellitus with hyperglycemia Category: Medical Plan: Decrease the amount of carbohydrate intake, pasta, bread, rice and potatoes are all sugar and that is aside from all the sweet stuff, remember that fruits are good but they are Sweet also. Patient's diabetes is under control with the good hemoglobin A1c patient on semaglutide for the diabetes Plan History of Present Illness The patient is a 69-year-old male presenting with venous stasis dermatitis for a follow-up. He has a complex medical history involving chronic obstructive pulmonary disease and hypertension. Recent laboratory investigations showed anemia and leukopenia, and there is ongoing management for fatty liver disease. The patient has been advised to maintain control over cholesterol levels and diabetes. Health Maintenance - Continued management and control of diabetes mellitus with semaglutide - Monitoring and control of cholesterol with the current LDL of 33 - Pulmonary follow-up for obstructive sleep apnea and COPD - Anticoagulation therapy for the prevention of further DVT episodes - Vascular surgery consultation and repeat lower extremity ultrasound for PVD Social History - Uses rollator for ambulation assistance - Has difficulty with regular use of compression stockings - Inquiries regarding medical equipment and support therapy Review of Systems - Cardiovascular: Reports using anticoagulation therapy - Dermatological: Reports venous stasis dermatitis with associated redness but no signs of infection - Endocrine: Denies uncontrolled blood sugar levels - Neurological: Reports using gabapentin for nerve pain related to PVD, but it is ineffective Physical Exam Results - Labs: Anemia (Hb 12.3), leukopenia; liver function tests mildly elevated; LDL cholesterol at 33 - Tests: Noted controlled hemoglobin A1c indicating well-managed diabetes Plan We discussed the continued use of anticoagulation therapy and possible vascular surgery consultation for managing DVT history and peripheral vascular health. Gabapentin is to be discontinued due to ineffectiveness. For management of venous stasis dermatitis, we advised saline soaks and gauze wrapping. Cholesterol management continues with an LDL at 33 and diabetes remains controlled with semaglutide. Pulmonary follow-up and mobility aids including a rollator and compression devices were considered to support overall wellbeing. Patient was informed and verbally consented to the use of an ambient scribe for clinic note documentation during this visit. Discussion Notes I engaged the patient in discussions regarding the management of his venous stasis dermatitis and outlined the effectiveness and risks associated with current and proposed treatments. Risks and alternatives of anticoagulation and the usage of gabapentin were detailed, and the patient agreed with the decision to discontinue gabapentin due to ineffectiveness. I stressed the importance of dermal care and regular follow-up bloodwork to manage his liver function and anemia. We entertained explorations for rolling or compression devices that align with his skin management needs. Emphasis was placed on monitoring symptoms and maintaining diabetes control, as well as pulmonary follow-up for his COPD. Patient Instructions - Continue current anticoagulation and report any new bleeding or bruising. - Discontinue gabapentin; report if nerve pain worsens. - Perform saline soaks and gauze wrapping on the skin regularly. - Maintain diabetes management and blood pressure control. - Monitor redness or signs of infection on the legs and report any worsening. - Consider options for a rollator and inquire about compression stocking effectiveness. - Follow up with pulmonary and vascular consults as needed. Orders: Referrals Wound Care Referral L97.919 - Non-pressure chronic ulcer of unspecified part of right lower leg with unspecified severity Vascular Surgery Referral I73.9 - Peripheral vascular disease, unspecified Medications: New [ROLLATOR] As directed 1 ea 0RF M17.11 - Unilateral primary osteoarthritis, right knee Discontinued gabapentin Discontinued Reason: Doctor's Order 300 mg PO DAILY 90 caps 2RF
[2024-09-30 17:15] VITALS: BP 128/72; PULSE 77; O2SAT 98; BMI 33.4
== END 2024-09-30 18:06 | disposition home or self-care (01) ==
LOC: HO.HMCH 17:09
PROVIDERS: PCP Internal Medicine; Visit Provider Internal Medicine
DX: I87.2 Venous insufficiency (chronic) (peripheral) (principal); L97.919 Non-pressure chronic ulcer of unspecified part of right lower leg with unspecified severity; E11.65 Type 2 diabetes mellitus with hyperglycemia

== ENCOUNTER → 2024-09-30 17:09 | Outpatient (BNVA) | payer OTHER, SELFPAY | PROVIDERS: PCP Internal Medicine; Visit Provider Internal Medicine | DX: I87.2 Venous insufficiency (chronic) (peripheral) (principal); L97.919 Non-pressure chronic ulcer of unspecified part of right lower leg with unspecified severity; E11.65 Type 2 diabetes mellitus with hyperglycemia; Z79.01 Long term (current) use of anticoagulants | CPT/HCPCS: 96127; 99212 ==

== ENCOUNTER 2024-10-02 08:08 | Outpatient (REF) | payer OTHER, SELFPAY ==
[2024-10-02 08:50] LABS: Basophils Absolute Auto 0.1 X10*3/uL (0.0-0.2); Eosinophils Absolute Auto 0.1 X10*3/uL (0.0-0.4); Eosinophils Percent Auto 2.8 % (0-4); Hematocrit 36.3 % (42.0-52.0); Hemoglobin 11.5 g/dl (14.0-18.0); Imm Gran Abs Auto 0.01 X10*3/uL (0.00-0.03); Imm Gran Pct Auto 0.2 % (0.0-0.4); Lymphocytes Absolute Auto 2.6 X10*3/uL (1.2-4.9); Lymphocytes Percent Auto 51.1 % (20-40); MANUAL DIFF FLAG NO; Mean Corpuscular HGB Conc 31.7 g/dl (31.0-36.0); Mean Corpuscular Hemoglobin 27.6 pg (27.0-33.0); Mean Corpuscular Volume 87.3 fL (80.0-98.0); Mean Platelet Volume 9.4 fL (9.4-12.4); Monocytes Absolute Auto 0.4 X10*3/uL (0.1-1.2); Monocytes Percent Auto 6.9 % (2-11); Neutrophils Absolute Auto 1.9 x10*3/uL (2.0-8.3); Platelet Count 167 X10*3/uL (160-400); Red Blood Count 4.16 X10*6/uL (4.60-5.80); Red Cell Distribution Width 13.2 % (11.0-16.0); White Blood Count 5.1 X10*3/uL (4.8-10.8)
[2024-10-02 09:29] LABS: Creatinine Urine 186.93 mg/dL
[2024-10-02 09:36] LABS: Alanine Aminotransferase 72 U/L (0-40); Albumin Level 3.5 g/dL (3.5-5.0); Alkaline Phosphatase 74 U/L (39-117); Anion Gap 10 (12-20); Aspartate Amino Transferase 55 U/L (5-37); Bilirubin Total 0.4 mg/dL (0.0-1.0); Blood Urea Nitrogen 13 mg/dL (9-16); Calcium 8.7 mg/dL (8.4-10.2); Carbon Dioxide 25 mmol/L (22-29); Chloride 112 mmol/L (96-108); Cholesterol 86 mg/dL (<200); Estimated Glomerular Filt Rate > 60; Glucose Random 94 mg/dL (60-115); HDL Cholesterol 39 mg/dL (>40); LDL Cholesterol Calculated 29 mg/dL (<100); Potassium 3.9 mmol/L (3.3-5.1); Sodium 143 mmol/L (135-145); Total Protein 6.4 g/dL (6.5-8.0); Triglycerides 91 mg/dL (<150)
[2024-10-02 09:50] LABS: Free T4 (Free Thyroxine) 1.05 ng/dL (0.71-1.85); Thyroid Stimulating Hormone 1.89 uIU/mL (0.32-4.0)
[2024-10-02 10:04] LABS: Folate 5.2 ng/mL (> or = 4.0); Prostate Specific Antigen Scr 0.47 ng/mL (<0.05-4.0); Vitamin B12 905 pg/mL (200-900)
== END 2024-10-02 08:09 | disposition home or self-care (01) ==
LOC: HO.LAB 08:08
PROVIDERS: PCP Internal Medicine; Visit Provider Internal Medicine
DX: E78.00 Pure hypercholesterolemia, unspecified (principal); E11.65 Type 2 diabetes mellitus with hyperglycemia; Z12.5 Encounter for screening for malignant neoplasm of prostate
CPT/HCPCS: 36415; 80053; 80061; 82570; 82607; 82746; 84153; 84439; 84443; 85025

== ENCOUNTER 2024-10-23 15:58 | Outpatient (REF) | payer OTHER, SELFPAY ==
--- NOTE | ~2024-10-23 | US_ITS ---
CLINICAL HISTORY: I82.509 - Chronic embolism and thrombosis of unspecified deep veins of u... Venous duplex ultrasound right lower extremity COMPARISON: US right lower extremity veins dated 07/06/23 at 13:41 EST FINDINGS: Thin linear nonocclusive vascular web present within the popliteal vein, similar to prior imaging. The visualized deep veins are fully compressible with normal Doppler color flow and spectral tracings. No popliteal cyst. Morphologically normal right groin lymph node with normal fatty hilum identified. No aggressive features. Contralateral left common femoral vein demonstrates normal flow. IMPRESSION: 1. No acute deep venous thrombosis within the right lower extremity. 2. Similar appearance of chronic vascular web within the right popliteal vein consistent with prior deep venous thrombosis. This document has been electronically signed by: Davion Smith MD on 10/23/2024 16:49:11
== END 2024-10-23 15:59 | disposition home or self-care (01) ==
LOC: HO.US 15:58
PROVIDERS: PCP Internal Medicine; Visit Provider Clinical Nurse Specialist Psychiatric/Mental Health, Geropsychiatric
DX: I82.501 Chronic embolism and thrombosis of unspecified deep veins of right lower extremity (principal)
CPT/HCPCS: 93971

== ENCOUNTER → 2024-10-23 16:00 | Outpatient (BNV) | payer OTHER, SELFPAY | PROVIDERS: PCP Internal Medicine; Visit Provider Radiology Diagnostic Radiology | DX: I82.531 Chronic embolism and thrombosis of right popliteal vein (principal) | CPT/HCPCS: 93971 ==

== ENCOUNTER 2024-10-31 13:26 | Outpatient (AMB) | payer OTHER, SELFPAY ==
--- NOTE | 2024-10-31 13:43 | A.OFFVIS_ITS ---
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 His right leg is wrapped in bandages and has discoloration. It is also swollen. Patient has had issues for about 3 years but has worsened recently. Patient is non diabetic. Patients leg began to weep when elevated in exam chair. 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 His daughter is interpreting for us. Complaints include pain, swelling of lower extremities, cramping, fatigue, and heaviness of the lower extremities. It has been affecting their daily activities including walking, standing, and physical activity. It is noted more so in the right leg. His daughter states he has had increased swelling, particularly in his right lower extremity, for >3y now; however, this year, the swelling has worsened, there is discoloration of the leg, as well as increased pain. He does have a significant hx of DVTs and remains on Xarelto; most recent venous duplex on 10/23 revealed no DVTs. She states there is weeping coming from the posterior aspect of the calf. She states the discoloration has started and worsened over the last 3w. She states there is swelling all of the time, there is no time when it goes down. There is no concerns of the left lower extremity. He is a former smoker, quitting >10y ago. He is not a diabetic; his daughter states he was a prediabetic but his glucose numbers have gone down since being on weekly semaglutide Patient denies any previous venous surgery or injections. . Patient has a hx of DVTs in the right lower extremity and remains on Xarelto. Patient denies any history of phlebitis. Trial of compression includes - elevation They now present for vascular evaluation regarding their varicose veins. [facility] Medical History Lymphadenoma Chronic deep vein thrombosis (DVT) Preop exam for internal medicine Diverticulosis DM2 (diabetes mellitus, type 2) Tubular adenoma of colon Right leg DVT COPD (chronic obstructive pulmonary disease) Romero's cyst of knee Exertional chest pain Constipation Rectal bleeding History of DVT (deep vein thrombosis) Hypercholesterolemia Anemia Obstructive sleep apnea Cognitive impairment Coronary artery disease History of renal calculi Polysubstance abuse Lumbar spondylosis Hypertension Current use of anticoagulant therapy Surgical History History of heart artery stent History of endoscopy (~2020) History of cystoscopy (~2001) History of lithotripsy (~2001) History of colonoscopy (~2020) History of cardiac cath (~06/2009) History of hand surgery Family History Father No problems noted. Mother Diabetes Hypertension Stroke Family/Other No problems noted. Family/Other Leukemia Other Mental health disorder Social History Household Members: None Housing: Apartment Are you a primary acute care nursing assistant to a significant other at home: No Do you presently have visiting nurse or other home services: Yes Alcohol intake: never Patient Tobacco Use Status: Former Tobacco user Tobacco use type: Cigarette Years Smoked: 10 years e-Cigarette/Vaping Use: Never Used Second Hand Smoke Exposure: Yes Advance Directives Date on File: 10/13/21 service: No Current occupational status: retired Cognitive needs: No Hearing needs: No Vision needs: Yes Review of Systems Const Reports as per HPI and Denies weakness ENT Reports Normal hearing present and Denies dizziness Card Reports as per HPI, Denies chest pain, Denies chest pain at rest, Denies chest pain with activity, Denies dyspnea and Denies dyspnea on exertion Resp Reports as per HPI, Denies cough, Denies dyspnea and Denies dyspnea on exertion GI Reports as per HPI, Denies abdominal pain, Denies nausea and Denies vomiting Musc Denies numbness Skin/Breast Reports as per HPI, Denies erythema and Denies wounds Neuro Reports Normal hearing present, Denies dizziness, Denies numbness, Denies Sensory deficit (Neuro) and Denies weakness Psych Reports no additional complaints Endo Reports no additional complaints Physical Exam Const General: healthy appearing and no acute distress Orientation/consciousness: patient oriented x3 HEENT Head: Yes normal to inspection Ears: hearing grossly normal bilaterally Mouth: Normal oral and palatal mucosa present Resp Effort & Inspection: normal respiratory effort and able to speak in complete sentences Auscultation: clear to auscultation bilaterally Cardio Jugular venous distension: no JVD Rate: regular rate Rhythm: regular rhythm Heart sounds: S1 normal heart sound present and S2 normal heart sound present Bruits: no abdominal aortic bruits, no carotid bruits, no femoral bruits and no renal bruits Peripheral pulses: Peripheral pulses 2+ throughout GI Inspection: Yes normal to inspection Palpation (GI): No Abdominal aortic bruit present Skin General skin exam: no rashes or lesions noted Wounds: no wounds Hair: normal Neuro General: patient oriented x3 Cranial nerves: Yes Normal hearing present Cognition (Neuro): normal cognition Gait exam (Neuro): Normal gait present Motor exam (neuro): 5/5 motor strength present throughout Sensory Exam: No Sensory deficit (Neuro) Extrem Other: Right lower extremity: +3 pitting edema. Small amount of clear weeping noted out a small ulceration noted on the posterior aspect of the mid-calf. Hemosiderin staining noted from the pre-tibial area to the top of the ankle. Faint but palpable DP pulse (difficult to find due to edema). Left lower extremity: +1 nonpitting edema noted. CEAP: C - 4 E - primary A - superficial P - reflux General: Yes normal to inspection, Yes full ROM, Yes capillary refill normal and Yes normal gait Assessment & Plan Assessment & Plan (1) Varicose veins of both lower extremities with inflammation: Code(s): I83.11 - Varicose veins of right lower extremity with inflammation; I83.12 - Varicose veins of left lower extremity with inflammation Category: Medical Plan: Francisco is presenting today with his daughter on a referral from his PCP for ongoing and worsening right lower extremity swelling, discoloration, and pain. There is likely lymphedema as well, due to the lymphorrhea, hyperkeratosis, and hyperpigmentation. I discussed with the daughter and pt that we will r/o venous insufficiency first but will discuss lymphedema treatments after the US has been completed. They are in agreement to this plan. I did apply 2 abd pads, kerlix wrap, and compression bandage on the right lower extremity; the daughter has been doing daily dressing changes for the patient. In short, the patient has evidence of venous insufficiency. I have discussed the pathophysiology with the patient. In addition I have provided informational material regarding venous disease to the patient. We have discussed conservative measures including compression, elevation, and exercise. We discussed compression socks; unfortuately, they have been tried in the past but the pt is unable to get them on his right foot/leg. We will have them utilize a compression bandage as needed. I have taken the liberty of ordering venous insufficiency testing with the patient. They will follow up with me after testing. The patient had an opportunity to ask questions regarding the treatment plan. All questions were answered. Imaging studies, laboratory studies and physical exam results were discussed and reviewed in detail. No major barriers to understanding were identified. The patient expressed understanding and agreement with the above treatment plan. The patient is aware they should contact our office by phone for worsening of the current condition or the appearance of new symptoms. Thank you for allowing me to participate in the vascular care of this patient. If you have any questions or concerns regarding the treatment for the above condition please do not hesitate to contact me. The office telephone contact is [phone]. This note is constructed using voice recognition software. While every effort has been made to ensure accuracy, oyster grower errors may have been included. Thank you for allowing me to participate in the care of your patient. Yours sincerely, KAVITA Arteaga Orders: Orders US venous duplex LE BI 1 Week I83.11 - Varicose veins of right lower extremity with inflammation, I83.12 - Varicose veins of left lower extremity with inflammation Coding Level of Care Code New Pt Level 4 (71939) Diagnoses Varicose veins of both lower extremities with inflammation I83.11; I83.12
== END 2024-10-31 14:04 | disposition home or self-care (01) ==
LOC: HO.HVS 13:27
PROVIDERS: PCP Internal Medicine; Visit Provider Physician Assistant Surgical
DX: I83.11 Varicose veins of right lower extremity with inflammation (principal); I83.12 Varicose veins of left lower extremity with inflammation
CPT/HCPCS: 99204

== ENCOUNTER → 2024-10-31 13:26 | Outpatient (BNVA) | payer OTHER, SELFPAY | PROVIDERS: PCP Internal Medicine; Visit Provider Physician Assistant Surgical | DX: I83.11 Varicose veins of right lower extremity with inflammation (principal); I83.12 Varicose veins of left lower extremity with inflammation | CPT/HCPCS: 99202 ==

== ENCOUNTER 2024-11-12 09:14 | Outpatient (AMB) | payer OTHER, SELFPAY ==
--- NOTE | 2024-11-12 09:26 | MHC.PC.OV ---
Vital Signs 11/12/24 09:27 Height 5 ft 7 in Weight 205 lb 2 oz BMI 32.1 BP 130/60 Blood Pressure Location Lt brachial Position Sitting Pulse 75 Pulse Source Pulse Oximeter Temp 97.1 F Temp Source Temporal Artery Scan Pulse Oximetry (%) 94 Oxygen Delivery Method Room Air Intake Visit Reasons: 3 Months f/u Intake Note: Patient is here to follow up on DM, PVD, HTN. Mortician Supplies Sales Representative Required: Yes Mortician Supplies Sales Representative Language: Lamps Tester And Inspector Name: Janis (daughter) Information Interpreted: non-clinical & clinical (Pt decline director nicu service prefer daughter to translate for him) Undercover Cop: Present Accompanied by: Daughter Allergies lisinopril Adverse Reaction (Intermediate, Verified 11/12/24 09:27) high creatinine Tobacco use date assessed: 11/12/24 Fall risk assessment: No Falls in past year Last assessed Fall Risk: 11/12/24 Dental Screening Dental Screen Date: 07/26/24 [facility] Medical History Lymphadenoma Chronic deep vein thrombosis (DVT) Preop exam for internal medicine Diverticulosis DM2 (diabetes mellitus, type 2) Tubular adenoma of colon Right leg DVT COPD (chronic obstructive pulmonary disease) Romero's cyst of knee Exertional chest pain Constipation Rectal bleeding History of DVT (deep vein thrombosis) Hypercholesterolemia Anemia Obstructive sleep apnea Cognitive impairment Coronary artery disease History of renal calculi Polysubstance abuse Lumbar spondylosis Hypertension Current use of anticoagulant therapy Surgical History History of heart artery stent History of endoscopy (~2020) History of cystoscopy (~2001) History of lithotripsy (~2001) History of colonoscopy (~2020) History of cardiac cath (~06/2009) History of hand surgery Family History Father No problems noted. Mother Diabetes Hypertension Stroke Family/Other No problems noted. Family/Other Leukemia Other Mental health disorder Social History Household Members: None Housing: Apartment Are you a primary field care coordinator to a significant other at home: No Do you presently have visiting nurse or other home services: Yes Alcohol intake: never Patient Tobacco Use Status: Former Tobacco user Tobacco use type: Cigarette Years Smoked: 10 years e-Cigarette/Vaping Use: Never Used Second Hand Smoke Exposure: Yes Advance Directives Date on File: 10/13/21 service: No Current occupational status: retired Cognitive needs: No Hearing needs: No Vision needs: Yes Questionnaire Thrive Questionnaire Date Thrive assessed: 09/30/24 I am a: Parent/Caregiver What is your living situation today?: I have a steady place to live Within the past 12 months, did the food you bought not last and you didn't have the money to get more?: Never true Within the past 12 months, did you worry whether your food would run out before you got money to buy more?: Never true Do you have trouble paying for medicines?: I choose not to answer this question Do you have trouble getting transportation to medical appointments?: I choose not to answer this question Do you have trouble paying your heating and electricity bill?: I choose not to answer this question Do you have trouble taking care of your child, family member or friend?: I choose not to answer this question Do you have trouble with day-to-day activities such as bathing, preparing meals, shopping, managing finances, etc.?: I choose not to answer this question Are you currently unemployed and looking for a job?: I choose not to answer this question Are you interested in more education?: I choose not to answer this question Please select the resources that you would like help with: None Currently or been in a relationship where the following occur: I choose not to answer THRIVE Score: 0 GENA-7 AMB Questionnaire GENA-7 Date GENA - 7 assessed: 07/26/24 Source: Developed by Drs. Maynor Colon, Viviana Jacobson, Dandy Garcia and colleagues, with an educational leonard from [employer]. Physical exam (Primary Care) Vital Signs: Last Vital Signs Temp 97.1 F 11/12/24 09:27 Pulse 75 11/12/24 09:27 BP 130/60 11/12/24 09:27 Pulse Ox 94 11/12/24 09:27 Oxygen Delivery Method Room Air 11/12/24 09:27 BMI result Body Mass Index 32.1 Tobacco/Smoking Status: Tobacco use Status Tobacco use date assessed 11/12/24 11/12/24 09:37 Patient Tobacco Use Status Former Tobacco user 11/12/24 09:37 Tobacco use type Cigarette 11/12/24 09:37 e-Cigarette/Vaping Use Never Used 11/12/24 09:37 Thrive Assessment: Date of Thrive Assessment Date Thrive assessed 09/30/24 11/12/24 09:37 Currently or been in a relationship where the following occur: I choose not to answer Const General: alert; No acute distress Eyes Conjunctivae: conjunctivae normal Resp Auscultation: clear to auscultation bilaterally Cardio Rate: regular rate Rhythm: regular rhythm GI Inspection: Yes normal to inspection Extrem Other: RLE swelling but Dry and mild redness and hyperpigmentation Results AMB Hemoglobin A1c AMB Hemoglobin A1c 5.6 % Last Edit by FERNANDO Mckeon on 11/12/24 09:45 Immunizations Tenivac (PF) 5 Lf unit-2 Lf unit/0.5 mL intramuscular syringe Performing Provider: Nevaeh Aquino MD [facility] Administered by: FERNANDO Taylor on 11/12/24 10:16 Dose Route Admin Location Dispensed Lot Number Expiration Date NDC Physician Non Invasive Cardiologist 0.5 mL IM Left Deltoid 0.5 mL [id number] 08/03/26 [id number] [employer] VIS Given Date VIS Provided VIS Publication Date 11/12/24 Single Vaccine 21 Eligibility Eligibility Date Funding Source Not [facility] Eligible 11/12/24 Private Results Reviewed Results Reviewed: Laboratory Last Values Hgb A1c (Clinic) 5.6 % (4.0-6.0) 11/12/24 09:25 Coding Level of Care Code Est Pt Level 4 (67340) Complex EM visit Add On G2211 Diagnoses Lymphedema I89.0 Type 2 diabetes mellitus with hyperglycemia E11.65 Coronary artery disease involving [place] coronary artery of [place] heart without angina pectoris I25.10 Coronary Disease-Associated Artery/Lesion type: [place] artery [place] vs. transplanted heart: [place] heart Associated angina: without angina History of DVT (deep vein thrombosis) Z86.718 Essential hypertension I10 Hypertension type: essential hypertension Hypercholesterolemia E78.00 Simple chronic bronchitis J41.0 COPD type: chronic bronchitis Chronic bronchitis type: simple Obstructive sleep apnea G47.33 Tubular adenoma of colon D12.6 Assessment & Plan Assessment & Plan (1) Lymphedema: Code(s): I89.0 - Lymphedema, not elsewhere classified Category: Medical Plan: Was seen by the vascular surgeon. When sitting down elevate the legs, exercise, and support stockings workup for venous insufficiency pending (2) Type 2 diabetes mellitus with hyperglycemia: Comment: March 2020 hemoglobin A1c of 6.6 [facility] Code(s): E11.65 - Type 2 diabetes mellitus with hyperglycemia Category: Medical Plan: Decrease the amount of carbohydrate intake, pasta, bread, rice and potatoes are all sugar and that is aside from all the sweet stuff, remember that fruits are good but they are Sweet also. Hemoglobin A1c is under control with diet and semaglutide (3) Coronary artery disease: Comment: [place] July 2009 cardiac catheterization June 2009 no obstructive Code(s): I25.10 - Atherosclerotic heart disease of [place] coronary artery without angina pectoris Category: Medical Qualifiers: Coronary Disease-Associated Artery/Lesion type: [place] artery [place] vs. transplanted heart: [place] heart Associated angina: without angina Qualified Code(s): I25.10 - Atherosclerotic heart disease of [place] coronary artery without angina pectoris Plan: Control the cholesterol, weight, blood pressure, diabetes continue with anticoagulation (4) History of DVT (deep vein thrombosis): Comment: (Hx Right leg DVT 07/2009 and Right leg DVT 08/2021) Code(s): Z86.718 - Personal history of other venous thrombosis and embolism Category: Medical Plan: Continue with anticoagulation (5) Hypertension: Code(s): I10 - Essential (primary) hypertension Category: Medical Qualifiers: Hypertension type: essential hypertension Qualified Code(s): I10 - Essential (primary) hypertension Plan: Continue with blood pressure medication. Decrease salt intake and exercise patient on clonidine 0.1 mg twice a day hydralazine 25 mg twice a day metoprolol 50 mg once a day (6) Hypercholesterolemia: Code(s): E78.00 - Pure hypercholesterolemia, unspecified Category: Medical Plan: Avoid fried foods, chicken skin, eggs, butter margarine, pastries and meat. Be it pork or beef they have a lot of cholesterol on rosuvastatin 40 mg once a day September 2024 last blood (7) COPD (chronic obstructive pulmonary disease): Code(s): J44.9 - Chronic obstructive pulmonary disease, unspecified Category: Medical Qualifiers: COPD type: chronic bronchitis Chronic bronchitis type: simple Qualified Code(s): J41.0 - Simple chronic bronchitis Plan: Stable (8) Obstructive sleep apnea: Comment: does not tolerate CPAP 09/2016October 2022- for sleep apnea Code(s): G47.33 - Obstructive sleep apnea (adult) (pediatric) Category: Medical Plan: Discussed about obstructive sleep apnea and the complications (9) Tubular adenoma of colon: Comment: February 2022 Code(s): D12.6 - Benign neoplasm of colon, unspecified Category: Medical Plan: Patient is reminded about colonoscopy Plan History of Present Illness The patient is a 69-year-old male presenting for ongoing management of peripheral vascular disease and lymphedema. He has experienced an 8-pound weight loss alongside issues of chronic anemia. Notably, the patient manages peripheral vascular concerns, including a leg ulcer which is healing with regular dressing changes and monitoring by a documentation improvement specialist. His history includes significant conditions such as obstructive sleep apnea (unable to use CPAP), hypertension, coronary artery disease, hypercholesterolemia, two occurrences of deep vein thrombosis, diabetes mellitus under control with diet, and hepatic steatosis, reflected in consistent liver enzyme elevations. Lifestyle and activity levels have been impacted by leg issues, but encouragement for mobility and exercise continues, focusing on low-impact activities. Preventative measures like a follow-up colonoscopy, considering his personal adenoma history, have been prioritized. Health Maintenance - Shingles vaccination is current. - He received the last tetanus vaccination in September 2014; a booster is advised. - Referral for colonoscopy due this year, with last colonoscopy conducted in 2021. Social History - Engages in regular, low-level physical activities such as walking and cycling, though this is currently limited by lymphedema. - Reports adherence to dietary modifications for diabete management. Review of Systems - Cardiovascular: Reports of chronic issues managed with medications. - Respiratory: Denies CPAP compliance for obstructive sleep apnea. - Gastrointestinal: Denies abdominal symptoms, reports history of tubular adenoma with follow-up suggested. - Musculoskeletal: Reports improvement of leg ulcer with dressings. - Dermatologic: Reports dry/itchy skin around healing ulcer. Physical Exam Results - Labs: Hemoglobin 11.5 g/dL, stable chronic anemia. - Cholesterol LDL: 29 mg/dL (within target range). - Liver enzymes elevated, attributed to fatty liver disease. Plan Ongoing management focuses on all cited health issues with an emphasis on maintaining cardiovascular and diabetes care, adjusting medications as warranted, and continuing compression to manage lymphedema. Ulcer treatment includes weekly dressing change assessments and managing discomfort with emollients to soothe healing-related itchiness. Blood pressure, cholesterol, and liver function are monitored via established pharmaceutical regimens and lifestyle interventions, where reduced LDL levels suggest an effective response. Preventative steps, including a tetanus update and colonoscopy referral considering past adenomatous polyps, are highlighted. I further recommend increased physical activity promoting mobility and cardiovascular health within the constraints of the patient's lower-extremity condition. Patient was informed and verbally consented to the use of an ambient scribe for clinic note documentation during this visit. Discussion Notes For this visit, discussions highlighted multifaceted health issues, advocating comprehensive management plans across chronic and preventative care. In terms of vascular health, the benefits of compression therapy for lymphedema were weighed, with clear strides ahead defined by pending diagnostics for venous sufficiency. Diabetes control received commendation with dietary adherence providing an effective treatment, while flagged concerns over hepatic enzyme levels owing to fatty liver warranted vigilance through lifestyle adjustments. I advocated for exercise increases, recommending cautious increments aligned with ulcer and leg status. Follow-up essentials such as a tetanus booster and thorough colon screening captured forward-looking preventative care narratives. I ensured patient understanding of medication roles and administered care pathways, placed emphasis on controlled variables, and guaranteed open channels for interim questions or evaluations prior to the next arranged consultation. Clear instructions extended to alternate contact provisions through our communication facility for emergent or responsive health updates. Patient Instructions - Continue following your current diabetes management plan. - Apply recommended lotion for itch relief on leg ulcers. - Attend the follow-up appointment for circulation ultrasound. - Return for regular wound care evaluations. - Schedule and complete a colonoscopy this year. - Be active within your comfort zone, possibly engage in low-impact exercises. - Update your tetanus vaccine today. - Notify me with any worsening symptoms or new health concerns. Orders: Orders AMB Hemoglobin A1c Today E11.65 - Type 2 diabetes mellitus with hyperglycemia Referrals Gastroenterology Referral D12.6 - Benign neoplasm of colon, unspecified
[2024-11-12 09:27] VITALS: BP 130/60; PULSE 75; TEMP 36.2; O2SAT 94; BMI 32.1
== END 2024-11-12 10:18 | disposition home or self-care (01) ==
LOC: HO.HMCH 09:15
PROVIDERS: PCP Internal Medicine; Visit Provider Internal Medicine
DX: I89.0 Lymphedema, not elsewhere classified (principal); E11.65 Type 2 diabetes mellitus with hyperglycemia; J41.0 Simple chronic bronchitis; I25.10 Atherosclerotic heart disease of native coronary artery without angina pectoris; Z86.718 Personal history of other venous thrombosis and embolism; I10 Essential (primary) hypertension; E78.00 Pure hypercholesterolemia, unspecified; G47.33 Obstructive sleep apnea (adult) (pediatric); D12.6 Benign neoplasm of colon, unspecified; Z23 Encounter for immunization

== ENCOUNTER → 2024-11-12 09:14 | Outpatient (BNVA) | payer OTHER, SELFPAY | PROVIDERS: PCP Internal Medicine; Visit Provider Internal Medicine | DX: I10 Essential (primary) hypertension (principal); Z23 Encounter for immunization; I89.0 Lymphedema, not elsewhere classified; E11.65 Type 2 diabetes mellitus with hyperglycemia; I25.10 Atherosclerotic heart disease of native coronary artery without angina pectoris; E78.00 Pure hypercholesterolemia, unspecified; J41.0 Simple chronic bronchitis; G47.33 Obstructive sleep apnea (adult) (pediatric); I25.2 Old myocardial infarction; Z86.718 Personal history of other venous thrombosis and embolism; Z86.0101 Personal history of adenomatous and serrated colon polyps; Z79.01 Long term (current) use of anticoagulants; Z79.899 Other long term (current) drug therapy | CPT/HCPCS: 83036; 90471; 90714; 99212 ==

== ENCOUNTER 2024-11-26 14:16 | Inpatient (IN) | payer OTHER, SELFPAY ==
--- NOTE | ~2024-11-26 | CT_ITS ---
EXAMINATION: CT ABDOMEN PELVIS WITHOUT IV CONTRAST HISTORY: Sudden onset of diffuse abdominal pain/vomiting. COMPARISON: Comparison is made with the prior examination dated 09/26/2022. TECHNIQUE: CT scan of the abdomen and pelvis was performed without contrast using standard departmental protocol. Coronal and sagittal reformatted images were generated and reviewed. Oral contrast material was not administered at the request of the referring physician. This CT exam was performed with one or more of the following dose reduction techniques: automated exposure control, adjustment of the mA and/or kV according to patient size, use of iterative reconstruction technique. DLP: 568 mGy-cm FINDINGS: LOWER CHEST: The visualized lung bases are clear. There is no pleural effusion. CARDIOVASCULATURE: The heart is normal in size. There is no pericardial effusion. LIVER: The liver is normal in size and contour. The liver has an unremarkable unenhanced appearance. GALLBLADDER / BILE DUCTS: The gallbladder is unremarkable. There is no intra or extrahepatic biliary ductal dilatation. SPLEEN: The spleen is normal in size and has an unremarkable unenhanced appearance. PANCREAS: The pancreas has an unremarkable unenhanced appearance. ADRENAL GLANDS: Unremarkable. KIDNEYS/RETROPERITONEUM: No renal calculi are identified. There is no hydronephrosis. LYMPH NODES: No retroperitoneal lymphadenopathy is identified in the abdomen or pelvis. VASCULATURE: The abdominal aorta is normal in caliber. The right common iliac artery is dilated measuring up to 2.2 cm in diameter. MESENTERY/PERITONEUM: No free fluid. No masses. There is no free intraperitoneal gas. STOMACH: There is a small hiatal hernia. The remainder of the stomach is collapsed. SMALL BOWEL: The small bowel is normal in caliber. COLON: The colon is unremarkable. APPENDIX: Normal. URINARY BLADDER/PELVIC ORGANS: The urinary bladder is partially collapsed. There is wall thickening of the anterior aspect of the urinary bladder. There is a tubular structure extending from the anterior aspect of the dome of the bladder toward the umbilicus. There is surrounding inflammatory stranding consistent with an inflamed urachal remnant. There is a small fat-containing umbilical hernia. The prostate is normal in size. BONES / SOFT TISSUES: There is grade II spondylolisthesis of L5 on S1 without change. CT/CT abdomen pelvis wo IV con IMPRESSION: 1. Inflamed urachal remnant, likely secondary to infection. Wall thickening of the anterior aspect of the urinary bladder may indicate coexistent cystitis. 2. Small hiatal hernia. 3. Right common iliac artery dilatation measuring up to 2.2 cm in size. Electronically signed by: Maynor Rey MD 11/26/2024 03:44 PM EDT
--- NOTE | ~2024-11-26 | XR_ITS ---
EXAMINATION: XR CHEST CLINICAL INFORMATION: SOB COMPARISON: 03/06/2021. TECHNIQUE: Frontal view of the chest was obtained. FINDINGS: Numerous leads overlie the chest. The cardiac, hilar, and mediastinal contours are normal. The lungs are clear bilaterally. No pneumothorax or effusion. No focal osseous or soft tissue abnormality. Mild degenerative changes bilateral shoulder joints. XR/XR chest 1V IMPRESSION: No active pulmonary disease. Electronically signed by: García Green MD 11/26/2024 03:55 PM EDT
--- NOTE | 2024-11-26 14:31 | ECG_ITS ---
Test Reason : WEAKNESS Blood Pressure : */* mmHG Vent. Rate : 94 BPM Atrial Rate : 94 BPM P-R Int : 174 ms QRS Dur : 94 ms QT Int : 366 ms P-R-T Axes : 23 -21 0 degrees QTcB Int : 457 ms Normal sinus rhythm Normal ECG When compared with ECG of 26-Sep-2022 14:47, Vent. rate has increased by 59 bpm Referred By: Generic ED Physician Electronically Signed By: ERUM JOHNSON
[2024-11-26 14:32] VITALS: BP 117/84; BP 119/72; PULSE 102; PULSE 92; RESP 16; TEMP 37.1; O2SAT 93; O2SAT 98; BMI 26.7
[2024-11-26 14:39] VITALS: BP 127/88; PULSE 103; RESP 17; O2SAT 93
[2024-11-26 14:52] LABS: MANUAL DIFF FLAG NO
--- NOTE | 2024-11-26 14:52 | PC.NURSE ---
Addendum entered by Mindy Howard RN 11/26/24 14:53: Patient is a 69-year-old male presenting for ongoing management of peripheral vascular disease and lymphedema. He has experienced an 8-pound weight loss alongside issues of chronic anemia, patient has been on wegovy for the past year. Notably, the patient manages peripheral vascular concerns, including a leg ulcer which is healing with regular dressing changes and monitoring by a health and nutrition specialist. His history includes significant conditions such as obstructive sleep apnea (unable to use CPAP), hypertension, coronary artery disease, hypercholesterolemia, two occurrences of deep vein thrombosis, diabetes mellitus under control with diet, and hepatic steatosis, reflected in consistent liver enzyme elevations. Lifestyle and activity levels have been impacted by leg issues. Patient presents today with c/o weakness, dizziness and gait imbalance for the past 3 weeks. Patient states his apartment does not have air conditioning at this time. Alert and oriented, chilean speaking. Tongue midline, no droop. WASHBURN without dificulty with no drift noted. Daughters at the bedside. Lungs clear bilat. Respirations even and non-labored. Abdomen distended, soft, non-tender with positive bowel sounds. c/o poor appetite. LE edema noted. with right LE discolored with an ulcer which is followed bu wound care. Original Note: Medical History Lymphadenoma Chronic deep vein thrombosis (DVT) Preop exam for internal medicine Diverticulosis DM2 (diabetes mellitus, type 2) Tubular adenoma of colon Right leg DVT COPD (chronic obstructive pulmonary disease) Romero's cyst of knee Exertional chest pain Constipation Rectal bleeding History of DVT (deep vein thrombosis) Hypercholesterolemia Anemia Obstructive sleep apnea Cognitive impairment Coronary artery disease History of renal calculi Polysubstance abuse Lumbar spondylosis Hypertension Current use of anticoagulant therapy
[2024-11-26 14:54] LABS: Basophils Percent Auto 0.4 % (0-2); Hematocrit 40.3 % (42.0-52.0); Imm Gran Abs Auto 0.02 X10*3/uL (0.00-0.03); Imm Gran Pct Auto 0.3 % (0.0-0.4); Lymphocytes Absolute Auto 1.4 X10*3/uL (1.2-4.9); Lymphocytes Percent Auto 17.3 % (20-40); Mean Corpuscular HGB Conc 32.3 g/dl (31.0-36.0); Mean Corpuscular Hemoglobin 27.3 pg (27.0-33.0); Mean Corpuscular Volume 84.7 fL (80.0-98.0); Mean Platelet Volume 9.3 fL (9.4-12.4); Monocytes Absolute Auto 0.6 X10*3/uL (0.1-1.2); Monocytes Percent Auto 7.6 % (2-11); Neutrophils Absolute Auto 5.8 x10*3/uL (2.0-8.3); Neutrophils Percent Auto 74.4 % (45-73); Platelet Count 336 X10*3/uL (160-400); Red Blood Count 4.76 X10*6/uL (4.60-5.80); Red Cell Distribution Width 13.2 % (11.0-16.0); White Blood Count 7.9 X10*3/uL (4.8-10.8)
--- NOTE | 2024-11-26 15:06 | ED.GENADULT ---
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 Ulloa HPI narrative: A 69-year-old male history of dementia, on DVT on Xarelto, CAD, HTN, HLD, COPD, ISH who lives home by himself with family support caring for the patient monitoring camera inside the house for the daughter to keep monitoring her father remotely, father called the daughter told her that he does not feel good and he did not speak much with her, daughter went to see her father found him complaining of shortness of breath, abdominal pain, vomited once at home. Patient in the emergency department report mild shortness of breath with no CP, mild abdominal pain after vomiting, no headache, no blurry vision, no weakness, no numbness, no fever, no fall. Related Data Home Medications ?Medication ?Instructions ?Recorded ?Confirmed walker (Ultra-Light Rollator misc) 09/30/24 09/30/24 Previous Rx's ?Medication ?Instructions ?Recorded salomón.[email or web address],knee,reg,xlrg #6 ea 07/01/20 blood sugar diagnostic (FreeStyle #100 ea 02/18/21 Lite Strips) blood-glucose meter (FreeStyle #1 ea 02/18/21 Lite Meter kit) lancets 28 gauge (FreeStyle #100 ea 02/18/21 Lancets) nitroglycerin 0.4 mg sublingual 0.4 mg sublingual Q5M PRN Chest 02/18/21 tablet (Nitrostat) Pain #25 tabs cyclobenzaprine 10 mg tablet 10 mg PO TID #90 tabs 08/10/21 walker with seat and wheels #1 ea 10/11/21 topiramate 25 mg tablet 25 mg PO BID 90 days #180 tabs 12/14/23 metoprolol succinate 50 mg 50 mg PO DAILY #90 tabs 01/08/24 tablet,extended release 24 hr clonidine HCl 0.1 mg tablet 0.1 mg PO BID 90 days #180 tabs 01/09/24 methylcellulose (laxative) 500 mg 500 mg PO DAILY #30 tabs 01/30/24 tablet (Fiber Therapy (methylcellulose)) ezetimibe 10 mg tablet (Zetia) 10 mg PO DAILY #90 tabs 03/01/24 hydralazine 25 mg tablet 25 mg PO Q12H 90 days #180 tabs 03/28/24 DIABETIC SHOES #2 ea 04/24/24 diclofenac sodium 1 % topical gel 4 g topical QID #100 grams 04/24/24 (Voltaren Arthritis Pain) donepezil 10 mg tablet 10 mg PO BEDTIME 30 days #90 tabs 05/22/24 pantoprazole 40 mg tablet,delayed 40 mg PO BID #60 tabs 07/15/24 release rivaroxaban 20 mg tablet (Xarelto) 20 mg PO DAILY 90 days #90 tabs 07/15/24 walker #1 ea 08/07/24 docusate sodium 100 mg capsule 100 mg PO BEDTIME #28 caps 08/12/24 semaglutide 2 mg/dose (8 mg/3 mL) 2 mg (0.75 mL) subcut QWEEK 30 09/06/24 subcutaneous pen injector days #3.75 mL trazodone 50 mg tablet 50 mg PO BEDTIME PRN insomnia #90 09/26/24 tabs ROLLATOR #1 ea 09/30/24 ascorbate calcium (vitamin C) 500 500 mg PO DAILY 90 days #90 tabs 10/01/24 mg tablet cyanocobalamin (vitamin B-12) 1,000 mcg PO DAILY 90 days #90 caps 10/01/24 1,000 mcg capsule ferrous sulfate 325 mg (65 mg 325 mg PO DAILY 90 days #90 tabs 10/01/24 iron) tablet (Feosol) memantine 5 mg tablet 5 mg PO QAM #90 tabs 10/01/24 rosuvastatin 40 mg tablet (Crestor) 40 mg PO DAILY #90 tabs 10/01/24 clonazepam 1 mg tablet 1 mg PO DAILY #30 tabs 11/01/24 linaclotide 145 mcg capsule 145 mcg PO DAILY #30 caps 11/01/24 (Linzess) tramadol 50 mg tablet 50 mg PO TID PRN pain 30 days #90 11/05/24 tabs Allergies Allergy/AdvReac Type Severity Reaction Status Date / Time lisinopril AdvReac Intermediate high Verified 11/26/24 14:34 creatinine Review of Systems Review of Systems: All other systems are reviewed and are negative Constitutional: Reports as per HPI and Reports no additional constitutional complaints Eyes: Reports as per HPI and Reports no additional eye complaints Reports system reviewed and no additional complaints, except as documented Cardiovascular: Reports as per HPI and Reports no additional cardiovascular complaints Respiratory: Reports as per HPI and Reports no additional respiratory complaints Gastrointestinal: Reports as per HPI and Reports no additional gastrointestinal complaints Genitourinary: Reports no additional female genitourinary complaints Musculoskeletal: Reports no additional musculoskeletal complaints Skin/Breast: Reports system reviewed and no additional complaints, except as docu Psychiatric: Reports no additional psychiatric complaints Endocrine: Reports no additional endocrine complaints Hematologic/Lymphatic: Reports no additional hematologic/lymphatic complaints Allergic/Immunologic: Reports no additional allergic/immunologic complaints Reports system reviewed and no additional complaints, except as documented and Reports Abnormal speech present [facility] Past Medical History Medical History Lymphadenoma Chronic deep vein thrombosis (DVT) Preop exam for internal medicine Diverticulosis DM2 (diabetes mellitus, type 2) Tubular adenoma of colon Right leg DVT COPD (chronic obstructive pulmonary disease) Romero's cyst of knee Exertional chest pain Constipation Rectal bleeding History of DVT (deep vein thrombosis) Hypercholesterolemia Anemia Obstructive sleep apnea Cognitive impairment Coronary artery disease History of renal calculi Polysubstance abuse Lumbar spondylosis Hypertension Current use of anticoagulant therapy Surgical History History of heart artery stent History of endoscopy (~2020) History of cystoscopy (~2001) History of lithotripsy (~2001) History of colonoscopy (~2020) History of cardiac cath (~06/2009) History of hand surgery Family History Family History Father No problems noted. Mother Diabetes Hypertension Stroke Family/Other No problems noted. Family/Other Leukemia Other Mental health disorder Social History Social History Household Members: None Housing: Apartment Are you a primary progressive care unit registered nurse to a significant other at home: No Do you presently have visiting nurse or other home services: Yes Alcohol intake: never Patient Tobacco Use Status: Former Tobacco user Tobacco use type: Cigarette Years Smoked: 10 years Smoked in Last 30 Days: No e-Cigarette/Vaping Use: Never Used Second Hand Smoke Exposure: Yes Advance Directives: Yes Advance Directives on File: Yes Advance Directives Date on File: 10/13/21 Do you have a plan to hurt others: No Plan service: No Current occupational status: retired Cognitive needs: No Hearing needs: No Vision needs: Yes Physical Exam ED Vital Signs: Vital Signs - 24 hr 11/26/24 14:32 11/26/24 14:39 11/26/24 16:00 Temperature 98.8 F Pulse Rate 92 103 H 70 Respiratory Rate 16 17 15 Blood Pressure 117/84 127/88 122/78 Pulse Oximetry 93 93 93 Oxygen Delivery Method Room Air Room Air Room Air BMI result Body Mass Index 26.7 Vital signs have been reviewed and appear to be correct. Blood pressure elevated. Heart rate normal. Respiratory rate normal. Temperature normal. Oxygen saturation normal. Appearance: Alert. Oriented X2 to place and person No acute distress. Head: Normal external exam. Normocephalic. Atraumatic. No Farah signs noted. No raccoon eyes noted Eyes: PERRLA. EOMI. Conjunctiva and sclera normal. Eyelids normal. ENT: TM's Normal. Pharynx normal. Uvula midline. Moist mucous membranes. No trismus noted. No drooling noted. No muffled voice noted. Neck: Normal inspection. Neck supple. FROM. No adenopathy. Thyroid Normal. No meningeal signs. No neck mass noted. CVS: Normal heart rate and rhythm. Heart sound normal. No murmurs noted. Pulses normal throughout. Respiratory: No respiratory distress. Painless inspiration. Breath sounds normal. No wheezes/rales/rhonchi noted. Chest nontender. No accessory muscle usage noted or decreased air movement noted. Abdomen: Soft and nontender. Bowel sounds normal in all 4 quadrants. No distention noted. No organomegaly noted. No visible injury noted. Back: No CVA tenderness. Full range of motion noted. Skin: Skin warm and dry. Normal skin color. Normal skin turgor. No rashes/lesions/lacerations noted. Extremities: No lower extremity edema. Extremities exhibit normal range of motion. Extremities nontender. Neuro: Oriented X 2. Cranial nerve exam: II-XII are grossly intact No motor deficit. No sensory deficit. Reflexes normal. Course Reevaluation(s) Reevaluation #1: Acute UTI, no sepsis criteria, ADAM. Admit for further evaluation. IV fluid hydration. Ceftriaxone for UTI. Time: 17:26 Medications Administered Discontinued Medications Generic Name Dose Route Start Last Admin Trade Name Freq PRN Reason Stop Dose Admin Lactated Ringer's 1,000 mls @ 999 mls/hr 11/26/24 15:15 11/26/24 15:11 Lr IV 11/26/24 16:15 999 mls/hr .Q1H1M COMPA Administration Medical Decision Making Differential Diagnosis Differential Diagnoses: The differential diagnosis associated with the presentation includes (ACS, pneumonia, pneumothorax, pleural effusion, electrolyte derangement, severe anemia, dehydration, UTI.) Admission/Observation Consideration of admission/observation: Escalation of care including admission/observation considered Consult Healthcare Provider Management of the patient was discussed with: Hospitalist (Sheba Feng) Lab Data MDM Lab Attestation statement: I reviewed the patient's lab results. 11/26/24 14:48 11/26/24 14:48 Labs: Lab Results 11/26/24 11/26/24 Range/Units 14:48 17:01 WBC 7.9 (4.8-10.8) X10*3/uL RBC 4.76 (4.60-5.80) X10*6/uL Hgb 13.0 L (14.0-18.0) g/dl Hct 40.3 L (42.0-52.0) % MCV 84.7 (80.0-98.0) fL MCH 27.3 (27.0-33.0) pg MCHC 32.3 (31.0-36.0) g/dl RDW 13.2 (11.0-16.0) % Plt Count 336 D (160-400) X10*3/uL MPV 9.3 L (9.4-12.4) fL Immature Gran % (Auto) 0.3 (0.0-0.4) % Neut % (Auto) 74.4 H (45-73) % Lymph % (Auto) 17.3 L (20-40) % [place] % (Auto) 7.6 (2-11) % Eos % (Auto) 0.0 (0-4) % Baso % (Auto) 0.4 (0-2) % Lymph # (Auto) 1.4 (1.2-4.9) X10*3/uL [place] # (Auto) 0.6 (0.1-1.2) X10*3/uL Eos # (Auto) 0.0 (0.0-0.4) X10*3/uL Baso # (Auto) 0.0 (0.0-0.2) X10*3/uL Abs Immat Gran (auto) 0.02 (0.00-0.03) X10*3/uL Absolute Neuts (auto) 5.8 (2.0-8.3) x10*3/uL Absolute Nucleated RBC 0.000 (0.0-0.012) X10*3/uL Nucleated RBC % (auto) 0.0 (0.0-0.2) /100WBC Sodium 145 (135-145) mmol/L Potassium 4.3 (3.3-5.1) mmol/L Chloride 113 H (96-108) mmol/L Carbon Dioxide 21 L (22-29) mmol/L Anion Gap 15 (12-20) BUN 30 H (9-16) mg/dL Creatinine 2.35 H (0.5-1.4) mg/dL Estim Creat Clear Calc 30.0 Estimated GFR 28 Random Glucose 137 H (60-115) mg/dL Calcium 10.0 D (8.4-10.2) mg/dL Magnesium 2.8 H (1.6-2.6) mg/dL Total Bilirubin 0.5 (0.0-1.0) mg/dL AST 67 H (5-37) U/L ALT 61 H (0-40) U/L Alkaline Phosphatase 73 (39-117) U/L Troponin I High Sens 4.8 (<3.5-35.0) ng/L Total Protein 9.8 H (6.5-8.0) g/dL Albumin 4.1 (3.5-5.0) g/dL Urine Color Dark Yellow Urine Appearance Cloudy Urine pH 5.0 (5.0-9.0) Ur Specific [place] >= 1.030 H (1.005-1.025) Urine Protein 100 (2+) H (Neg-Trace) mg/dL Urine Glucose (UA) Negative (Negative) mg/dL Urine Ketones 15 (Negative) mg/dL Urine Blood Moderate (2+) H (Negative) Urine Nitrite Positive H (Negative) Ur Leukocyte Esterase Moderate (2+) H (Negative) Urine RBC >20 H (0-2) /HPF Urine WBC >50 H (0-5) /HPF Ur Squamous Epith Cells 6-10 (0-2) /HPF Urine Bacteria 3+ (None Seen) Hyaline Casts >20 (0-2) /LPF Independent Interpretation I performed an independent interpretation of an: Plain X-Ray (Chest: No acute pulmonary disease) and CT Scan Radiology Impression Discussion of test interpretation with radiology: I have reviewed the radiologist's reading. Discharge Plan Discharge Clinical Impression: Acute UTI, ADAM (acute kidney injury) Patient Disposition: Admitted As Inpatient Print Language: Latvian
[2024-11-26] MEDS: Lactated Ringers 1,000 ML 999 ML IV ×2 (15:11→17:51)
[2024-11-26 15:14] LABS: Alanine Aminotransferase 61 U/L (0-40); Albumin Level 4.1 g/dL (3.5-5.0); Alkaline Phosphatase 73 U/L (39-117); Anion Gap 15 (12-20); Aspartate Amino Transferase 67 U/L (5-37); Bilirubin Total 0.5 mg/dL (0.0-1.0); Blood Urea Nitrogen 30 mg/dL (9-16); Carbon Dioxide 21 mmol/L (22-29); Chloride 113 mmol/L (96-108); Estimated Glomerular Filt Rate 28; Glucose Random 137 mg/dL (60-115); Magnesium 2.8 mg/dL (1.6-2.6); Potassium 4.3 mmol/L (3.3-5.1); Sodium 145 mmol/L (135-145); Total Protein 9.8 g/dL (6.5-8.0); Troponin-I High Sensitivity 4.8 ng/L (<3.5-35.0)
[2024-11-26 16:00] VITALS: BP 122/78; PULSE 70; RESP 15; O2SAT 93
[2024-11-26 17:08] LABS: Appearance Urine Cloudy; Color Urine Dark Yellow; Glucose Urine UA Negative (Negative); Leukocyte Esterase Urine Moderate (2+) (Negative); Nitrite Urine Positive (Negative); Specific Gravity - Urine >= 1.030 (1.005-1.025); UMIC TRIGGER UACC YES; Urine Blood Moderate (2+) (Negative); Urine Ketones 15 mg/dL (Negative); Urine Protein 100 (2+) mg/dL (Neg-Trace)
[2024-11-26 17:24] LABS: Bacteria Urine 3+ (None Seen); Hyaline Casts Urine >20 /LPF (0-2); RBC Urine >20 /HPF (0-2); UACC Culture Trigger YES; WBC Urine >50 /HPF (0-5)
--- NOTE | 2024-11-26 17:29 | P.HPHOSP_ITS ---
History of Present Illness Date of Service: 11/26/24 Chief Complaint: UTI 69-year-old male history of dementia, on DVT on Xarelto, CAD, HTN, HLD, COPD, ISH who lives home by himself with family support caring for the patient monitoring camera inside the house for the daughter to keep monitoring her father remotely, father called the daughter told her that he does not feel good and he did not speak much with her, daughter went to see her father found him complaining of shortness of breath, abdominal pain, vomited once at home. She reports she is on today earlier and he was fine but when she showed up today he was only on his boxers and she reported that was not like him. Upon examination patient denied chest pain, shortness breath, nausea, vomiting, diarrhea, recent illness, sick contacts. In the ER, chest x-ray was negative for consolidation or effusion. UA grossly positive, no fever leukocytosis noted. Plan will be to admit patient for further management and treatment of urinary tract infection Review of Systems 2 Review of Systems: Denies any recent fever chills or decrease in appetite respiratory denies any shortness of breath or cough cardiovascular denied chest pain gastrointestinal denies any dysphagia abdominal pain nausea vomiting or diarrhea genitourinary denies any dysuria frequency or hematuria musculoskeletal denies any joint pain or swelling neuropsych denies any weakness or seizures all other systems reviewed are negative [facility] Medical History Lymphadenoma Chronic deep vein thrombosis (DVT) Preop exam for internal medicine Diverticulosis DM2 (diabetes mellitus, type 2) Tubular adenoma of colon Right leg DVT COPD (chronic obstructive pulmonary disease) Romero's cyst of knee Exertional chest pain Constipation Rectal bleeding History of DVT (deep vein thrombosis) Hypercholesterolemia Anemia Obstructive sleep apnea Cognitive impairment Coronary artery disease History of renal calculi Polysubstance abuse Lumbar spondylosis Hypertension Current use of anticoagulant therapy Family History Father No problems noted. Mother Diabetes Hypertension Stroke Family/Other No problems noted. Family/Other Leukemia Other Mental health disorder Surgical History History of heart artery stent History of endoscopy (~2020) History of cystoscopy (~2001) History of lithotripsy (~2001) History of colonoscopy (~2020) History of cardiac cath (~06/2009) History of hand surgery Social History Household Members: None Housing: Apartment Are you a primary professional healthcare representative to a significant other at home: No Do you presently have visiting nurse or other home services: Yes Alcohol intake: never Patient Tobacco Use Status: Former Tobacco user Tobacco use type: Cigarette Years Smoked: 10 years Smoked in Last 30 Days: No e-Cigarette/Vaping Use: Never Used Second Hand Smoke Exposure: Yes Advance Directives: Yes Advance Directives on File: Yes Advance Directives Date on File: 10/13/21 Do you have a plan to hurt others: No Plan service: No Current occupational status: retired Cognitive needs: No Hearing needs: No Vision needs: Yes Meds Allergies Allergy/AdvReac Type Severity Reaction Status Date / Time lisinopril AdvReac Intermediate high Verified 11/26/24 14:34 creatinine Active Medications: Current Medications Lactated Ringer's (Lr) 1,000 mls @ 999 mls/hr IV .Q1H1M COMPA Stop: 11/26/24 18:30 Home Medications ?Medication ?Instructions ?Recorded ?Confirmed ?Last Taken ?Type walker (Ultra-Light Rollator misc) 09/30/24 09/30/24 Unknown History Physical Exam 2 Vital Signs and Narrative: Vital Signs: Last Vital Signs Temp 98.8 F 11/26/24 14:32 Pulse 70 11/26/24 16:00 Resp 15 11/26/24 16:00 BP 122/78 11/26/24 16:00 Pulse Ox 93 11/26/24 16:00 O2 Del Method Room Air 11/26/24 16:00 BMI result Body Mass Index 26.7 Appearing in no acute distress head is normocephalic atraumatic eyes pupils are PERRLA sclera is anicteric mouth throat mucous membranes are intact and moist neck is supple no lymphadenopathy, no JVD noted lung sounds are clear to auscultation heart regular rate rhythm, clear S1, S2 positive bowel sounds, abdomen is soft, nontender neuro patient is alert x3, no focal deficits Results Labs 11/26/24 14:48 11/26/24 14:48 Labs: Laboratory Results - last 24 hr 11/26/24 11/26/24 14:48 17:01 MCV 84.7 MCH 27.3 MCHC 32.3 RDW 13.2 Plt Count 336 D MPV 9.3 L Immature Gran % (Auto) 0.3 Neut % (Auto) 74.4 H Lymph % (Auto) 17.3 L [place] % (Auto) 7.6 Eos % (Auto) 0.0 Baso % (Auto) 0.4 Lymph # (Auto) 1.4 [place] # (Auto) 0.6 Eos # (Auto) 0.0 Baso # (Auto) 0.0 Abs Immat Gran (auto) 0.02 Absolute Neuts (auto) 5.8 Absolute Nucleated RBC 0.000 Nucleated RBC % (auto) 0.0 Anion Gap 15 Estim Creat Clear Calc 30.0 Estimated GFR 28 Random Glucose 137 H Calcium 10.0 D Magnesium 2.8 H Total Bilirubin 0.5 AST 67 H ALT 61 H Alkaline Phosphatase 73 Troponin I High Sens 4.8 Total Protein 9.8 H Albumin 4.1 Urine Color Dark Yellow Urine Appearance Cloudy Urine pH 5.0 Ur Specific [place] >= 1.030 H Urine Protein 100 (2+) H Urine Glucose (UA) Negative Urine Ketones 15 Urine Blood Moderate (2+) H Urine Nitrite Positive H Ur Leukocyte Esterase Moderate (2+) H Urine RBC >20 H Urine WBC >50 H Ur Squamous Epith Cells 6-10 Urine Bacteria 3+ Hyaline Casts >20 Imaging Radiologist's Impressions: Impressions Abdomen/Pelvis CT 11/26/24 14:17 IMPRESSION: 1. Inflamed urachal remnant, likely secondary to infection. Wall thickening of the anterior aspect of the urinary bladder may indicate coexistent cystitis. 2. Small hiatal hernia. 3. Right common iliac artery dilatation measuring up to 2.2 cm in size. Electronically signed by: Maynor Rey MD 11/26/2024 03:44 PM EDT RP Chest X-Ray 11/26/24 15:30 IMPRESSION: No active pulmonary disease. Electronically signed by: García Green MD 11/26/2024 03:55 PM EDT RP Assessment and Plan (1) Hypertension: Qualifiers: Hypertension type: essential hypertension Qualified Code(s): I10 - Essential (primary) hypertension Status: Acute Plan 69-year-old man admitted to the ER reporting feeling unwell. He has a history of dementia lives alone with family support. Urinary tract infection IV Rocephin Follow urine and blood cultures ADAM. UTI Creatinine 2.35 Start IV fluids If no improvement consult Nephrology Diabetes mellitus type 2 Sliding scale, ADA diet History of DVT Continue anticoagulant COPD No acute exacerbation Albuterol as needed Normocytic anemia No obvious bleeding Follow up CBC Hypomagnesemia Follow magnesium No changes noted on EKG Transaminitis Mildly elevated Follow LFTs Hypertension Stable blood pressure Continue home medications Dementia, unspecified Continue Namenda, Aricept, clonazepam The prophylaxis with rivaroxaban Full code med rec pending Quality Stroke Does the patient have a stroke diagnosis?: No VTE Prior VTE?: No VTE Risk Level:: Medical - moderate - high VTE Device Contraindication: Treatment Not Indicated VTE Drug Contraindication: N/A - Med Ordered
[2024-11-26] MEDS: cefTRIAXone sodium 1 GM VIAL IVPUSH (17:51)
[2024-11-26] MEDS: Lactated Ringers 1,000 ML 100 ML IVCONT (19:17)
--- NOTE | 2024-11-26 20:40 | PHA.MEDREC ---
Pharmacy Consult ? Medication Reconciliation Pharmacy has completed the medication reconciliation. Spoke to daughter Janis at bedside who has med list blister pack (from [facility]). She confirmed his last dose of medication was this morning 11/26/24.
[2024-11-26 20:46] VITALS: BMI 28.4
[2024-11-26 20:53] VITALS: BP 141/68; PULSE 71; RESP 16; TEMP 36.4; O2SAT 96
[2024-11-26] MEDS: Milk of Magnesia 30 ML ORAL.SUSP PO (21:16)
[2024-11-26] MEDS: 0.9 % Sodium Chloride Flush 3 ML SYRINGE IVFLUSH (21:16)
[2024-11-26] MEDS: Melatonin 3 MG TABLET 6 MG PO (22:54)
[2024-11-26] MEDS: Acetaminophen 325 MG TABLET 650 MG PO (22:54)
[2024-11-27 03:53] VITALS: BP 135/71; PULSE 56; RESP 18; TEMP 36.1; O2SAT 94
[2024-11-27] MEDS: Lactated Ringers 1,000 ML 100 ML IVCONT ×2 (04:52→16:38)
[2024-11-27 07:12] LABS: Hematocrit 33.9 % (42.0-52.0); Hemoglobin 10.7 g/dl (14.0-18.0); Mean Corpuscular HGB Conc 31.6 g/dl (31.0-36.0); Mean Corpuscular Hemoglobin 27.2 pg (27.0-33.0); Mean Platelet Volume 9.6 fL (9.4-12.4); Platelet Count 284 X10*3/uL (160-400); Red Blood Count 3.94 X10*6/uL (4.60-5.80); Red Cell Distribution Width 13.6 % (11.0-16.0)
[2024-11-27] MEDS: ondansetron HCL 4 MG/2 ML VIAL IVPUSH (07:29)
[2024-11-27 07:30] LABS: Anion Gap 12 (12-20); Blood Urea Nitrogen 29 mg/dL (9-16); Carbon Dioxide 25 mmol/L (22-29); Chloride 109 mmol/L (96-108); Creatinine Clr Calc Pharmacy 49.5; Estimated Glomerular Filt Rate 44; Glucose Random 102 mg/dL (60-115); Magnesium 2.4 mg/dL (1.6-2.6); Potassium 3.8 mmol/L (3.3-5.1); Sodium 142 mmol/L (135-145)
[2024-11-27 07:35] LABS: Calcium 8.7 mg/dL (8.4-10.2)
[2024-11-27 07:59] VITALS: BP 123/63; PULSE 50; RESP 15; TEMP 36.3; O2SAT 95
--- NOTE | 2024-11-27 11:05 | P.PNIM_ITS ---
Subjective Subjective Date of Service: 11/27/24 Interval History: seen and evaluated feels better denies fever or chills pain improved no other events Review of Systems Review of Systems: Yes all other systems are reviewed and are negative Physical Exam 2 Vital Signs: Vital Signs: Last Vital Signs Temp 97.3 F 11/27/24 07:59 Pulse 50 11/27/24 07:59 Resp 15 11/27/24 07:59 BP 123/63 11/27/24 07:59 Pulse Ox 95 11/27/24 07:59 O2 Del Method Room Air 11/27/24 07:59 BMI result Body Mass Index 28.4 Const: Other: Constitutional : interactive, not in distress Cardiovascular : no JVP, no lower extremity edema Respiratory : bilateral chest movement, not in resp distress Gastrointestinal: soft, lax, Non tender Skin : Warm, Dry Neurological : Alert & oriented , No focal deficit Objective Data Active Medications Acetaminophen (Acetaminophen 325 Mg Tablet) 650 mg PO Q6H PRN PRN Reason: Pain, Mild 1-3,fever,headache Last Admin: 11/26/24 22:54 Dose: 650 mg Documented By: JALEN Calcium Carbonate (Calcium Carbonate 750 Mg Tab.Chew) 750 mg PO Q4H PRN PRN Reason: Heartburn Ceftriaxone Sodium (Ceftriaxone Sodium 1 Gm Vial) 1 gm IVPUSH Q24H [facility] Lactated Ringer's (Lr) 1,000 mls @ 100 mls/hr IVCONT .Q10H [facility] Last Admin: 11/27/24 04:52 Dose: 100 mls/hr Documented By: JALEN Magnesium Hydroxide (Milk Of Magnesia 30 Ml Oral.Susp) 30 ml PO DAILY PRN PRN Reason: Constipation Last Admin: 11/26/24 21:16 Dose: 30 ml Documented By: JOSE RAFAELQC Melatonin (Melatonin 3 Mg Tablet) 6 mg PO BEDTIME PRN PRN Reason: Insomnia Last Admin: 11/26/24 22:54 Dose: 6 mg Documented By: JALEN Ondansetron HCl (Ondansetron Hcl 4 Mg/2 Ml Vial) 4 mg IVPUSH Q8H PRN PRN Reason: Nausea and Vomiting Last Admin: 11/27/24 07:29 Dose: 4 mg Documented By: GRAZIC Sodium Chloride (0.9 % Sodium Chloride Flush 3 Ml Syringe) [facility] Last Admin: 11/27/24 09:17 Dose: Not Given Documented By: MARIZA Non-Admin Reason: IV Running Labs 11/27/24 05:23 11/27/24 05:23 Labs: Laboratory Results - last 24 hr 11/26/24 11/26/24 11/27/24 14:48 17:01 05:23 MCV 84.7 86.0 MCH 27.3 27.2 MCHC 32.3 31.6 RDW 13.2 13.6 Plt Count 336 D 284 MPV 9.3 L 9.6 Immature Gran % (Auto) 0.3 Neut % (Auto) 74.4 H Lymph % (Auto) 17.3 L [place] % (Auto) 7.6 Eos % (Auto) 0.0 Baso % (Auto) 0.4 Lymph # (Auto) 1.4 [place] # (Auto) 0.6 Eos # (Auto) 0.0 Baso # (Auto) 0.0 Abs Immat Gran (auto) 0.02 Absolute Neuts (auto) 5.8 Absolute Nucleated RBC 0.000 0.000 Nucleated RBC % (auto) 0.0 0.0 Anion Gap 15 12 Estim Creat Clear Calc 30.0 49.5 Estimated GFR 28 44 Random Glucose 137 H 102 Calcium 10.0 D 8.7 D Magnesium 2.8 H 2.4 Total Bilirubin 0.5 AST 67 H ALT 61 H Alkaline Phosphatase 73 Troponin I High Sens 4.8 Total Protein 9.8 H Albumin 4.1 Urine Color Dark Yellow Urine Appearance Cloudy Urine pH 5.0 Ur Specific [place] >= 1.030 H Urine Protein 100 (2+) H Urine Glucose (UA) Negative Urine Ketones 15 Urine Blood Moderate (2+) H Urine Nitrite Positive H Ur Leukocyte Esterase Moderate (2+) H Urine RBC >20 H Urine WBC >50 H Ur Squamous Epith Cells 6-10 Urine Bacteria 3+ Hyaline Casts >20 Assessment and Plan (1) ADAM (acute kidney injury): Status: Acute (2) Acute UTI: Status: Acute Plan 69-year-old man admitted to the ER reporting feeling unwell. He has a history of dementia lives alone with family support. Urinary tract infection CT scan showing Urchal remenant infection Continue IV Rocephin Follow urine and blood cultures consider urology eval if worsens ADAM Creatinine improving continue IV fluids Diabetes mellitus type 2 Sliding scale, ADA diet History of DVT Continue anticoagulant COPD No acute exacerbation Albuterol as needed Normocytic anemia No obvious bleeding Follow up CBC Hypomagnesemia Follow magnesium No changes noted on EKG Transaminitis Mildly elevated Follow LFTs Hypertension Stable blood pressure Continue home medications Dementia, unspecified Continue Namenda, Aricept, clonazepam The prophylaxis with rivaroxaban Full code The patient will need overnight stay for treatment of UTI pending cultures and ADAM pending improvement in kidney function Quality Stroke Does the patient have a stroke diagnosis?: No VTE Prior VTE?: No VTE Risk Level:: Medical - moderate - high VTE Device Contraindication: Treatment Not Indicated VTE Drug Contraindication: N/A - Med Ordered
--- NOTE | 2024-11-27 12:36 | MHC.CM.PN ---
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
[2024-11-27 15:38] VITALS: BP 128/67; PULSE 49; RESP 18; TEMP 36.1; O2SAT 94
[2024-11-27] MEDS: Metoprolol Succinate ER 50 MG TAB.ER.24H PO (16:35)
[2024-11-27] MEDS: Memantine HCl 5 MG TABLET PO (16:35)
[2024-11-27] MEDS: traZODone HCL 50 MG TABLET PO (16:35)
[2024-11-27] MEDS: Topiramate 25 MG TABLET PO ×2 (16:35→20:41)
[2024-11-27] MEDS: clonazePAM 1 MG TABLET PO (16:35)
[2024-11-27] MEDS: Rivaroxaban 20 MG TABLET PO (16:35)
[2024-11-27] MEDS: cefTRIAXone sodium 1 GM VIAL IVPUSH (17:24)
[2024-11-27 19:04] VITALS: BP 123/72; PULSE 60; RESP 17; TEMP 36.3; O2SAT 96
[2024-11-27] MEDS: Atorvastatin Calcium 80 MG TABLET PO (20:41)
[2024-11-27] MEDS: cloNIDine HCL 0.1 MG TABLET PO (20:41)
[2024-11-27] MEDS: Donepezil HCl 10 MG TABLET PO (20:41)
[2024-11-27] MEDS: Omeprazole 20 MG CAPSULE.DR PO (20:41)
[2024-11-27] MEDS: Docusate Sodium 100 MG CAPSULE PO (20:41)
[2024-11-27] MEDS: Melatonin 3 MG TABLET 6 MG PO (20:45)
[2024-11-27] MEDS: Ezetimibe 10 MG TABLET PO (20:45)
[2024-11-28] MEDS: Lactated Ringers 1,000 ML 100 ML IVCONT (03:01)
[2024-11-28 03:23] VITALS: BP 125/73; PULSE 75; RESP 16; TEMP 36.7; O2SAT 93
[2024-11-28] MEDS: Omeprazole 20 MG CAPSULE.DR PO (05:34)
[2024-11-28 06:01] LABS: MANUAL DIFF FLAG NO
[2024-11-28 06:20] LABS: Basophils Absolute Auto 0.1 X10*3/uL (0.0-0.2); Basophils Percent Auto 0.8 % (0-2); Eosinophils Percent Auto 0.3 % (0-4); Hematocrit 32.4 % (42.0-52.0); Hemoglobin 10.2 g/dl (14.0-18.0); Imm Gran Abs Auto 0.02 X10*3/uL (0.00-0.03); Imm Gran Pct Auto 0.3 % (0.0-0.4); Lymphocytes Absolute Auto 2.9 X10*3/uL (1.2-4.9); Lymphocytes Percent Auto 44.8 % (20-40); Mean Corpuscular HGB Conc 31.5 g/dl (31.0-36.0); Mean Corpuscular Hemoglobin 27.1 pg (27.0-33.0); Mean Corpuscular Volume 85.9 fL (80.0-98.0); Mean Platelet Volume 9.3 fL (9.4-12.4); Monocytes Absolute Auto 0.5 X10*3/uL (0.1-1.2); Neutrophils Percent Auto 45.8 % (45-73); Platelet Count 254 X10*3/uL (160-400); Red Blood Count 3.77 X10*6/uL (4.60-5.80); Red Cell Distribution Width 13.4 % (11.0-16.0); White Blood Count 6.5 X10*3/uL (4.8-10.8)
[2024-11-28 06:27] LABS: Anion Gap 11 (12-20); Blood Urea Nitrogen 15 mg/dL (9-16); Calcium 8.5 mg/dL (8.4-10.2); Carbon Dioxide 25 mmol/L (22-29); Chloride 111 mmol/L (96-108); Creatinine Clr Calc Pharmacy 79.7; Estimated Glomerular Filt Rate > 60; Glucose Random 94 mg/dL (60-115); Potassium 4.2 mmol/L (3.3-5.1); Sodium 143 mmol/L (135-145)
[2024-11-28 07:08] VITALS: BP 132/62; PULSE 61; RESP 18; TEMP 36.2; O2SAT 97
[2024-11-28 07:44] LABS: Alanine Aminotransferase 50 U/L (0-40); Albumin Level 2.9 g/dL (3.5-5.0); Alkaline Phosphatase 61 U/L (39-117); Aspartate Amino Transferase 62 U/L (5-37); Bilirubin Direct 0.2 mg/dL (0.0-0.5); Bilirubin Total 0.3 mg/dL (0.0-1.0); Total Protein 6.5 g/dL (6.5-8.0)
[2024-11-28] MEDS: Ascorbic Acid 500 MG TABLET PO (08:23)
[2024-11-28] MEDS: cloNIDine HCL 0.1 MG TABLET PO (08:23)
[2024-11-28] MEDS: clonazePAM 1 MG TABLET PO (08:24)
[2024-11-28] MEDS: Metoprolol Succinate ER 50 MG TAB.ER.24H PO (08:24)
[2024-11-28] MEDS: Cyanocobalamin (Vitamin B-12) 1,000 MCG TABLET 1000 MCG PO (08:24)
[2024-11-28] MEDS: Topiramate 25 MG TABLET PO (08:24)
--- NOTE | 2024-11-28 10:32 | P.DS_ITS ---
DS: Providers Provider Date of Service: 11/28/24 Date of admission: 11/26/24 17:59 Date of discharge: 11/28/24 Primary care physician: Nevaeh Aquino MD Attending physician on discharge: Nikunj Ware Discharging clinician: Ofelia Crawley DS: Diagnosis Discharge Diagnosis (1) ADAM (acute kidney injury): Status: Acute (2) Acute UTI: Status: Acute DS: Summary Hospital Course Hospital Course: From H&P on the day of admission 69-year-old male history of dementia, on DVT on Xarelto, CAD, HTN, HLD, COPD, ISH who lives home by himself with f yvonne support caring for the patient monitoring camera inside the house for the daughter to keep monitoring her father remotely, father called the daughter told her that he does not feel good and he did not speak much with her, daughter went to see her father found him complaining of shortness of breath, abdominal pain, vomited once at home. She reports she is on today earlier and he was fine but when she showed up today he was only on his boxers and she reported that was not like him. Upon examination patient denied chest pain, shortness breath, nausea, vomiting, diarrhea, recent illness, sick contacts. In the ER, chest x-ray was negative for consolidation or effusion. UA grossly positive, no fever leukocytosis noted. Plan will be to admit patient for further management and treatment of urinary tract infection Urinary tract infection CT scan showing Urchal remenant infection. Treated with IV ceftriaxone. Blood cultures negative. Urine Culture growing pansensitive E coli. Remained afebrile, no leukocytosis. will discharge with course of Ceftin. There is no open wound or drainage to abdomen. If recurrent infection may need surgical evaluation to remove urachal remnant. ADAM. Likely prerenal. Resolved with IV fluid. Tolerating diet. mild transaminitis - has remained stable. no abdominal pain. CT showing normal liver. recommend outpatient follow up with PCP Time Attestation Discharge Coordination Time (in mins): 32 Quality: Safe Use of Opioids Does Pt have an Active Cancer Diagnosis on the Problem List?: No Quality: Stroke Does the patient have a stroke diagnosis?: No Physical Exam Vital Signs: Vital Signs: Last Vital Signs Temp 97.1 F 11/28/24 07:08 Pulse 61 11/28/24 07:08 Resp 18 11/28/24 07:08 BP 132/62 11/28/24 07:08 Pulse Ox 97 11/28/24 07:08 O2 Del Method Room Air 11/28/24 07:08 BMI result Body Mass Index 28.4 Const: General: cooperative, comfortable, no acute distress, alert and awake Nutritional Appearance: average body habitus Orientation/consciousness: ricardo ent oriented x3 Resp: Effort & Inspection: normal respiratory effort and able to speak in complete sentences Cardio: Rate: regular rate Neuro: General: patient oriented x3, moves all extremities and CN's II-XI intact bilaterally DS: Data Data Completed and Pending Labs on day of discharge: Laboratory Results - last 24 hr 11/28/24 05:25 WBC 6.5 RBC 3.77 L Hgb 10.2 L Hct 32.4 L MCV 85.9 MCH 27.1 MCHC 31.5 RDW 13.4 Plt Count 254 MPV 9.3 L Immature Gran % (Auto) 0.3 Neut % (Auto) 45.8 Lymph % (Auto) 44.8 H [place] % (Auto) 8.0 Eos % (Auto) 0.3 Baso % (Auto) 0.8 Lymph # (Auto) 2.9 [place] # (Auto) 0.5 Eos # (Auto) 0.0 Baso # (Auto) 0.1 Abs Immat Gran (auto) 0.02 Absolute Neuts (auto) 3.0 Absolute Nucleated RBC 0.000 Nucleated RBC % (auto) 0.0 Sodium 143 Potassium 4.2 Chloride 111 H Carbon Dioxide 25 Anion Gap 11 L BUN 15 Creatinine 0.97 Estim Creat Clear Calc 79.7 Estimated GFR > 60 Random Glucose 94 Calcium 8.5 Total Bilirubin 0.3 Direct Bilirubin 0.2 AST 62 H ALT 50 H Alkaline Phosphatase 61 Total Protein 6.5 Albumin 2.9 L Discharge Plan Discharge Anticipated Discharge Date/Time: 11/28/24 11:09 Patient Disposition: Home, Self-Care Discharge Diagnosis: UTI ADAM Referrals: Po,Nevaeh Ernst MD [Primary Care Provider, Internal Medicine] - 1 Week Discharge Medications: New cefuroxime axetil 250 mg tablet 250 mg PO Q12H 5 Days Qty: 10 0RF Continued (DME) FreeStyle Lite Strips Strip See Rx Instructions .ROUTE .MEDSUPPLY Qty: 100 3RF Rx Instructions: As directed check blood sugars once a day (DME) blood-glucose meter [FreeStyle Lite Meter] Kit See Rx Instructions .ROUTE .MEDSUPPLY Qty: 1 0RF Rx Instructions: As directed (DME) lancets [FreeStyle Lancets] [facility] See Rx Instructions .ROUTE .MEDSUPPLY Qty: 100 3RF Rx Instructions: As directed check the blood sugars once a day nitroglycerin [Nitrostat] 0.4 mg tablet, sublingual 0.4 mg sublingual Q5M PRN (Reason: Chest Pain) Qty: 25 0RF Rx Instructions: do not exceed 3 doses per episode topiramate 25 mg tablet 25 mg PO BID 90 Days Qty: 180 8RF metoprolol succinate 50 mg tablet extended release 24 hr 50 mg PO DAILY Qty: 90 8RF clonidine HCl 0.1 mg tablet 0.1 mg PO BID 90 Days Qty: 180 8RF hydralazine 25 mg tablet 25 mg PO Q12H 90 Days Qty: 180 2RF donepezil 10 mg tablet 10 mg PO BEDTIME 30 Days Qty: 90 11RF pantoprazole 40 mg tablet,delayed release (DR/EC) 40 mg PO BID Qty: 60 10RF docusate sodium 100 mg capsule 100 mg PO BEDTIME Qty: 28 4RF ferrous sulfate [Feosol] 325 mg (65 mg iron) tablet 325 mg PO DAILY 90 Days Qty: 90 4RF ascorbate calcium (vitamin C) 500 mg tablet 500 mg PO DAILY 90 Days Qty: 90 4RF cyanocobalamin (vitamin B-12) 1,000 mcg capsule 1,000 mcg PO DAILY 90 Days Qty: 90 4RF clonazepam 1 mg tablet 1 mg PO DAILY Qty: 30 2RF trazodone 50 mg tablet 50 mg PO DAILY@1700 ezetimibe [Zetia] 10 mg tablet 10 mg PO BEDTIME rosuvastatin [Crestor] 40 mg tablet 40 mg PO BEDTIME memantine 5 mg tablet 5 mg PO DAILY@1700 Xarelto 20 mg tablet 20 mg PO DAILY@1700 Rx Instructions: must administer with evening meal (DME) salomón.stocking,knee,reg,xlrg Misc See Rx Instructions .ROUTE .MEDSUPPLY Qty: 6 0RF Rx Instructions: As directed (DME) walker with seat and wheels See Rx Instructions .Route .MEDSUPPLY Qty: 1 0RF Rx Instructions: As directed (DME) walker Misc See Rx Instructions .Route Qty: 1 0RF Rx Instructions: As directed (DME) DIABETIC SHOES See Rx Instructions .Route .MEDSUPPLY Qty: 2 0RF Rx Instructions: As directed (DME) Ultra-Light Rollator Misc See Rx Instructions .Route Rx Instructions: As directed (DME) ROLLATOR See Rx Instructions .Route .MEDSUPPLY Qty: 1 0RF Rx Instructions: As directed Discharge Orders: Discharge Order (Routine); Ordered 11/28/24 Ordered By: Ofelia Crawley Activity on Discharge: As tolerated Stand Alone Forms: Patient Portal Discharge page Print Language: Mozambican Care Plan Goals: see below Health Concerns: UTI ADAM inflamed urachal remnant Plan of Treatment: Complete course of antibiotics as prescribed Call to schedule follow-up appointment with PCP follow up liver function with PCP Assessment: see discharge summary Patient Instructions: Urinary Tract Infection in Men (DC)
--- NOTE | 2024-11-28 11:49 | MHC.CM.PN ---
PT TO DC HOME TODAY, RESUME [employer] DEVEL[employer] FAMILY TO TRANSPORT
[2024-11-28 12:05] VITALS: BP 130/64; PULSE 63; RESP 17; TEMP 36.4; O2SAT 95
== END 2024-11-28 11:44 | disposition home or self-care (01) | DRG 690 ==
LOC: HO.ED 17:30 → HO.EDOVER 18:08 → HO.S3 19:02
PROVIDERS: Student in an Organized Health Care Education/Training Program; Admitting Provider Nurse Practitioner Acute Care; Emergency Provider Emergency Medicine; PCP Internal Medicine; Visit Provider Physician Assistant Medical
DX: N39.0 Urinary tract infection, site not specified (principal); N17.9 Acute kidney failure, unspecified; F03.90 Unspecified dementia, unspecified severity, without behavioral disturbance, psychotic disturbance, mood disturbance, and anxiety; Q64.4 Malformation of urachus; E11.9 Type 2 diabetes mellitus without complications; J44.9 Chronic obstructive pulmonary disease, unspecified; D64.9 Anemia, unspecified; E83.42 Hypomagnesemia; B96.20 Unspecified Escherichia coli [E. coli] as the cause of diseases classified elsewhere; Z87.891 Personal history of nicotine dependence; Z86.718 Personal history of other venous thrombosis and embolism; Z79.01 Long term (current) use of anticoagulants; Z79.899 Other long term (current) drug therapy
CPT/HCPCS: 36415; 71045; 74176; 80048; 80053; 80076; 81001; 83735; 84484; 85025; 85027; 87086; 87088; 87186; 93005; 99285; J0696; J2405; J7120

== ENCOUNTER → 2024-11-26 14:31 | Outpatient (BNV) | payer OTHER, SELFPAY | PROVIDERS: Admitting Provider Nurse Practitioner Acute Care; Emergency Provider Emergency Medicine; PCP Internal Medicine; Visit Provider Internal Medicine | DX: R53.1 Weakness (principal) | CPT/HCPCS: 93010 ==

== ENCOUNTER → 2024-11-26 15:03 | Outpatient (BNV) | payer OTHER, SELFPAY | PROVIDERS: Emergency Provider Emergency Medicine; PCP Internal Medicine; Visit Provider Radiology Diagnostic Radiology | DX: R10.9 Unspecified abdominal pain (principal); R06.02 Shortness of breath | CPT/HCPCS: 71045; 74176 ==

== ENCOUNTER → 2024-11-26 17:59 | Outpatient (BNV) | payer OTHER, SELFPAY | PROVIDERS: Admitting Provider Nurse Practitioner Acute Care; Emergency Provider Emergency Medicine; PCP Internal Medicine; Visit Provider Nurse Practitioner Acute Care | DX: N17.9 Acute kidney failure, unspecified (principal); N39.0 Urinary tract infection, site not specified | CPT/HCPCS: 99239 ==

== ENCOUNTER 2024-12-04 10:55 | Outpatient (RCR) | payer OTHER, SELFPAY | END 2024-12-04 16:38 | disposition home or self-care (01) | LOC: HO.WCC 10:55 | PROVIDERS: PCP Internal Medicine; Visit Provider Surgery | DX: I87.311 Chronic venous hypertension (idiopathic) with ulcer of right lower extremity (principal); L97.812 Non-pressure chronic ulcer of other part of right lower leg with fat layer exposed; Z86.72 Personal history of thrombophlebitis; Z79.899 Other long term (current) drug therapy | CPT/HCPCS: 97597; 99213 ==

== ENCOUNTER 2024-12-04 14:18 | Outpatient (AMB) | payer OTHER, SELFPAY ==
--- NOTE | 2024-12-04 14:23 | A.OFFPC_ITS ---
Vital Signs 12/04/24 14:27 Height 5 ft 7 in Weight 196 lb 4 oz BMI 30.7 BP 120/70 Blood Pressure Location Lt brachial Position Sitting Pulse 76 Pulse Source Pulse Oximeter Temp 97.1 F Temp Source Temporal Artery Scan Pulse Oximetry (%) 96 Oxygen Delivery Method Room Air Intake Visit Reasons: [facility] [place] 11/28 UTI Intake Note: Patient is here for hospital discharge and TCM follow up. Patient was discharged from [facility] on 11/28/24. Crepe Laminator Operator Required: Yes Crepe Laminator Operator Language: Study Hall Supervisor Name: Janis (daughter) Information Interpreted: non-clinical & clinical (pt decline fine arts teacher service prefer daughter to translate for him) Business Coordinator: Present Accompanied by: Daughter Allergies lisinopril Adverse Reaction (Intermediate, Verified 12/04/24 14:44) high creatinine Medication List - Last Reconciled 12/04/24 by Sofie Sheikh PA-C ascorbate calcium (vitamin C) 500 mg PO DAILY 90 days blood sugar diagnostic (FreeStyle Lite Strips) As directed check blood sugars once a day blood-glucose meter (FreeStyle Lite Meter kit) As directed clonazepam 1 mg PO DAILY clonidine HCl 0.1 mg PO BID 90 days salomón.stocking,knee,reg,xlrg As directed cyanocobalamin (vitamin B-12) 1,000 mcg PO DAILY 90 days [DIABETIC SHOES As directed] docusate sodium 100 mg PO BEDTIME donepezil 10 mg PO BEDTIME 30 days ezetimibe (Zetia) 10 mg PO BEDTIME ferrous sulfate (Feosol) 325 mg PO DAILY 90 days lancets (FreeStyle Lancets) As directed check the blood sugars once a day memantine 5 mg PO DAILY@1700 metoprolol succinate ER 50 mg PO DAILY nitroglycerin (Nitrostat) 0.4 mg sublingual Q5M PRN pantoprazole 40 mg PO BID rivaroxaban (Xarelto) 20 mg PO DAILY@1700 [ROLLATOR As directed] rosuvastatin (Crestor) 40 mg PO BEDTIME topiramate 25 mg PO BID 90 days trazodone 50 mg PO DAILY@1700 walker As directed walker (Ultra-Light Rollator misc) As directed [walker with seat and wheels As directed] Tobacco use date assessed: 12/04/24 Fall risk assessment: No Falls in past year Last assessed Fall Risk: 12/04/24 Dental Screening Dental Screen Date: 07/26/24 HPI [facility] 11/28 UTI HPI Details 69-year-old male with past medical histo ry of generalized anxiety disorder, obstructive sleep apnea, COPD, hypercholesterolemia, hypertension, history of DVT, coronary artery disease, diabetes mellitus last seen 11/2024 coming in for hospital discharge follow up. In review of the notes, patient was seen in [facility] ED 11/26/2024 for shortness of breath and abdominal pain urinalysis positive for UTI and admitted for further treatment. CT scan showing urchal remenant infection treated with IV ceftriaxone and transitioned to oral Ceftin for discharge. Patient was discharged home 11/28/2024 to follow up with PCP. 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 Urinary tract infection recently treated with antibiotics, with improvement in symptoms post-treatment. 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 Insomnia Managed with various medications without success; melatonin was effective during hospitalization. Right leg swelling: Chronic issue, currently non-painful. [facility] Information Date of Discharge 11/28/24 Discharged From [facility] Interactive Contact Date (Reference documentation from this date) 11/29/24 [facility] Medical History Lymphadenoma Chronic deep vein thrombosis (DVT) Preop exam for internal medicine Diverticulosis DM2 (diabetes mellitus, type 2) Tubular adenoma of colon Right leg DVT COPD (chronic obstructive pulmonary disease) Romero's cyst of knee Exertional chest pain Constipation Rectal bleeding History of DVT (deep vein thrombosis) Hypercholesterolemia Anemia Obstructive sleep apnea Cognitive impairment Coronary artery disease History of renal calculi Polysubstance abuse Lumbar spondylosis Hypertension Current use of anticoagulant therapy Surgical History History of heart artery stent History of endoscopy (~2020) History of cystoscopy (~2001) History of lithotripsy (~2001) History of colonoscopy (~2020) History of cardiac cath (~06/2009) History of hand surgery Family History Father No problems noted. Mother Diabetes Hypertension Stroke Family/Other No problems noted. Family/Other Leukemia Other Mental health disorder Social History Household Members: None Housing: House Are you a primary home health care worker to a significant other at home: No Do you presently have visiting nurse or other home services: Yes (daughter is manager drive) Alcohol intake: never Patient Tobacco Use Status: Former Tobacco user Tobacco use type: Cigarette Years Smoked: 10 years e-Cigarette/Vaping Use: Never Used Second Hand Smoke Exposure: Yes Advance Directives Date on File: 10/13/21 service: No Current occupational status: retired Cognitive needs: No Hearing needs: No Vision needs: Yes Questionnaire Thrive Questionnaire Date Thrive assessed: 11/27/24 I am a: Parent/Caregiver What is your living situation today?: I have a steady place to live Within the past 12 months, did the food you bought not last and you didn't have the money to get more?: Never true Within the past 12 months, did you worry whether your food would run out before you got money to buy more?: Never true Do you have trouble paying for medicines?: I choose not to answer this question Do you have trouble getting transportation to medical appointments?: I choose not to answer this question Do you have trouble paying your heating and electricity bill?: I choose not to answer this question Do you have trouble taking care of your child, family member or friend?: I choose not to answer this question Do you have trouble with day-to-day activities such as bathing, preparing meals, shopping, managing finances, etc.?: I choose not to answer this question Are you currently unemployed and looking for a job?: I choose not to answer this question Are you interested in more education?: I choose not to answer this question Please select the resources that you would like help with: None Currently or been in a relationship where the following occur: I choose not to answer THRIVE Score: 0 GENA-7 AMB Questionnaire GENA-7 Date GENA - 7 assessed: 07/26/24 Source: Developed by Drs. Maynor Colon, Viviana Jacobson, Dandy Garcia and colleagues, with an educational leonard from [employer]. Review of Systems Const Denies body aches, Denies chills, Denies fever(s), Denies headache(s) and Denies poor appetite Eyes Reports no additional complaints ENT Denies dysphagia, Denies dizziness, Denies headache(s) and Denies odynophagia Card Denies chest pain, Denies syncope, Denies edema, Denies irregular heart rhythm, Denies lightheadedness and Denies dyspnea Resp Denies cough and Denies dyspnea GI Denies abdominal pain, Denies constipation, Denies dysphagia, Denies diarrhea, Denies nausea, Denies odynophagia and Denies vomiting Reports no additional complaints Musc Reports no additional complaints and Denies abnormal gait Skin/Breast Reports system reviewed and no additional complaints, except as documented Neuro Denies abnormal gait, Denies dizziness, Denies syncope and Denies headache(s) Psych Reports no additional complaints Physical exam (Primary Care) Vital Signs: Last Vital Signs Temp 97.1 F 12/04/24 14:27 Pulse 76 12/04/24 14:27 BP 120/70 12/04/24 14:27 Pulse Ox 96 12/04/24 14:27 Oxygen Delivery Method Room Air 12/04/24 14:27 BMI result Body Mass Index 30.7 Tobacco/Smoking Status: Tobacco use Status Tobacco use date assessed 12/04/24 12/04/24 14:32 Patient Tobacco Use Status Former Tobacco user 12/04/24 14:24 Tobacco use type Cigarette 12/04/24 14:24 e-Cigarette/Vaping Use Never Used 12/04/24 14:24 Thrive Assessment: Date of Thrive Assessment Date Thrive assessed 11/27/24 12/04/24 14:24 Currently or been in a relationship where the following occur: I choose not to answer Const General: cooperative, healthy appearing, comfortable and no acute distress Orientation/consciousness: patient oriented x3 [facility] Head: Yes normocephalic Ears: hearing grossly normal bilaterally General nose exam: Normal external nose present Eyes General: appearance normal, both eyes and all related structures Conjunctivae: conjunctivae normal Neck Neck: Yes full ROM and Yes no lymphadenopathy Resp Effort & Inspection: normal respiratory effort Auscultation: clear to auscultation bilaterally, no crackles, no rales, no rhonchi and no wheezes Cardio Rate: regular rate Rhythm: regular rhythm Skin General skin exam: no rashes or lesions noted Neuro General: patient oriented x3 Gait exam (Neuro): Normal gait present Extrem Other: Bilateral lower extremity 1+ pitting edema. 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 (2) Hypertension: Code(s): I10 - Essential (primary) hypertension Category: Medical Qualifiers: Hypertension type: essential hypertension Qualified Code(s): I10 - Essential (primary) hypertension Plan: Continue on current blood pressure medication. Avoid salt intake and encourage healthy diet and regular exercise. (3) Venous stasis dermatitis: Code(s): I87.2 - Venous insufficiency (chronic) (peripheral) Category: Medical Plan: Patient was seen by wound care today for the right lower extremity deemed to no longer be infected and wound has healed. On exam and does appear mildly erythematous without warmth or tenderness however patient and his daughter states the erythema has significantly improved. The telecommunications specialist also did not think the leg was infected. I advised patient to keep a close eye on this and if redness or worsens or develops pain or warmth to reach out to the office immediately. Patient having bilateral lower extremity swelling. (4) Insomnia: Code(s): G47.00 - Insomnia, unspecified Category: Medical Plan: Plan to trial melatonin daily. Plan The patient will continue with melatonin 5 mg at bedtime to manage insomnia, as it was effective during hospitalization. A referral to a urologist is recommended to evaluate the congenital abnormal connection of the bladder which may be contributing to recurrent urinary tract infections. The patient is advised to monitor the right leg swelling and report any changes, especially signs of infection. The patient is encouraged to maintain adequate hydration to support recovery and prevent further infections. This note was constructed using voice recognition software. While every effort has been made to ensure accuracy and batch records clerk, still areas may have been included sometimes these areas may affect the content or meeting of the given symptoms. Total time spent caring for the patient today was 20 minutes. This includes time spent before the visit reviewing the chart, time spent during the visit, and time spent after the visit and documentation. Patient was informed and verbally consented to the use of an ambient scribe for clinic note documentation during this visit. 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
[2024-12-04 14:27] VITALS: BP 120/70; PULSE 76; TEMP 36.2; O2SAT 96; BMI 30.7
== END 2024-12-04 14:59 | disposition home or self-care (01) ==
LOC: HO.HMCH 14:19
PROVIDERS: PCP Internal Medicine
DX: I10 Essential (primary) hypertension (principal); Q64.4 Malformation of urachus; I87.2 Venous insufficiency (chronic) (peripheral); G47.00 Insomnia, unspecified

== ENCOUNTER → 2024-12-04 14:18 | Outpatient (BNVA) | payer OTHER, SELFPAY | PROVIDERS: PCP Internal Medicine | DX: F41.1 Generalized anxiety disorder (principal); G47.33 Obstructive sleep apnea (adult) (pediatric); J44.9 Chronic obstructive pulmonary disease, unspecified; E78.00 Pure hypercholesterolemia, unspecified; I10 Essential (primary) hypertension; E11.9 Type 2 diabetes mellitus without complications; I25.10 Atherosclerotic heart disease of native coronary artery without angina pectoris; Q64.4 Malformation of urachus; G47.00 Insomnia, unspecified; I87.2 Venous insufficiency (chronic) (peripheral); Z86.718 Personal history of other venous thrombosis and embolism | CPT/HCPCS: 99495 ==

== ENCOUNTER 2025-02-05 13:58 | Outpatient (AMB) | payer OTHER, SELFPAY ==
--- NOTE | 2025-02-05 14:11 | MHC.OFFVIS ---
Intake Visit Reasons: Malformation of urachus Intake Note: New Patient is present for malformation of Urachus Urology Rx:VIT-B12 Blood Thinners:none Imaging completed: none Cardiopulmonary Technologist Chief Required: No Accompanied by: Self / Same As Patient Allergies lisinopril Adverse Reaction (Intermediate, Verified 02/05/25 14:13) high creatinine HPI Comments Details: Francisco is a pleasant Italian-speaking male. Accompanied by his daughter who feels comfortable translating. He is a patient of Dr. Aquino. 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 performed for abdominal pain through emergency room Review of CT scan shows anterior bladder extension consistent with remnant bladder diverticulum Urachal cyst does not appear to be present No prior symptoms Recommend check cystoscopy in operating room Current guidelines would suggest surveillance inpatients who are asymptomatic and present without remnant extension to umbilicus [facility] Medical History Lymphadenoma Chronic deep vein thrombosis (DVT) Preop exam for internal medicine Diverticulosis DM2 (diabetes mellitus, type 2) Tubular adenoma of colon Right leg DVT COPD (chronic obstructive pulmonary disease) Romero's cyst of knee Exertional chest pain Constipation Rectal bleeding History of DVT (deep vein thrombosis) Hypercholesterolemia Anemia Obstructive sleep apnea Cognitive impairment Coronary artery disease History of renal calculi Polysubstance abuse Lumbar spondylosis Hypertension Current use of anticoagulant therapy Surgical History History of heart artery stent History of endoscopy (~2020) History of cystoscopy (~2001) History of lithotripsy (~2001) History of colonoscopy (~2020) History of cardiac cath (~06/2009) History of hand surgery Family History Father No problems noted. Mother Diabetes Hypertension Stroke Family/Other No problems noted. Family/Other Leukemia Other Mental health disorder Social History Household Members: None Housing: House Are you a primary youth career specialist to a significant other at home: No Do you presently have visiting nurse or other home services: Yes (daughter is assistant elementary teacher) Alcohol intake: never Patient Tobacco Use Status: Former Tobacco user Tobacco use type: Cigarette Years Smoked: 10 years e-Cigarette/Vaping Use: Never Used Second Hand Smoke Exposure: Yes Advance Directives Date on File: 10/13/21 service: No Current occupational status: retired Cognitive needs: No Hearing needs: No Vision needs: Yes Review of Systems Const Denies chills and Denies fever(s) Card Reports no additional complaints and Denies syncope Resp Denies cough GI Denies abdominal pain and Denies heartburn Reports as per HPI and Denies change in libido Neuro Denies syncope Psych Denies change in libido Endo Denies change in libido Physical Exam Const General: cooperative, healthy appearing, comfortable and no acute distress Orientation/consciousness: patient oriented x3 HEENT Face and sinus: Yes normal facial exam Mouth: moist mucous membranes Neck Neck: Yes normal visual inspection, Yes full ROM and Yes trachea midline Chest Chest palpation & inspection: normal inspection of the chest Resp Effort & Inspection: normal respiratory effort, able to speak in complete sentences and no respiratory distress GI Inspection: Yes normal to inspection Back/Spine/Pelvis Cervical Spine: normal cervical lordosis Thoracic/Lumbar Spine: thoracic and lumbar spine normal to inspection Skin General skin exam: no rashes or lesions noted Neuro General: patient oriented x3, gait normal, tone normal and moves all extremities Extrem General: Yes normal to inspection and Yes capillary refill normal Assessment & Plan Assessment & Plan (1) Urachal remnant: Code(s): Q64.4 - Malformation of urachus Category: Medical Plan Plan check cystoscopy in operating room with cystogram Orders: Orders AMB Post Void Residual by ultrasound 02/05/25 N39.0 - Urinary tract infection, site not specified AMB Urinalysis Automated 02/05/25 Z13.9 - Encounter for screening, unspecified Patient Instructions: This note is constructed using voice recognition software. While every effort has been made to ensure accuracy physician allergist immunologist errors may have been included. Imaging studies, laboratory and physical exam results were discussed and reviewed in detail. No major barriers to patient understanding were identified. An opportunity to ask questions regarding the treatment plan was provided. All questions were answered. The patient expressed understanding and agreement with the above treatment plan. The patient is aware they should contact our office by phone for worsening of their current condition or the appearance of new urologic symptoms. Compliance is encouraged with any medications and followup testing that is ordered. It is a privilege to participate in the urologic care of your patient. If you have any questions or concerns regarding treatment for the above conditions, or other urologic issues, please do not hesitate to contact me. The office telephone contact is [phone]. 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
== END 2025-02-05 15:02 | disposition home or self-care (01) ==
LOC: HO.HUSH 13:59
PROVIDERS: PCP Internal Medicine; Visit Provider Urology
DX: Q64.4 Malformation of urachus (principal)
CPT/HCPCS: 99204

== ENCOUNTER → 2025-02-05 13:58 | Outpatient (BNVA) | payer OTHER, SELFPAY | PROVIDERS: PCP Internal Medicine; Visit Provider Urology | DX: Q64.4 Malformation of urachus (principal) | CPT/HCPCS: 99202 ==

== ENCOUNTER → 2025-02-06 08:25 | Outpatient (BNV) | payer OTHER, SELFPAY | PROVIDERS: PCP Internal Medicine; Visit Provider Urology | DX: Z13.9 Encounter for screening, unspecified (principal) | CPT/HCPCS: 81003 ==

== ENCOUNTER 2025-03-13 10:35 | Outpatient (AMB) | payer OTHER, SELFPAY ==
--- NOTE | 2025-03-13 10:41 | MHC.PC.OV ---
Vital Signs 03/13/25 10:42 Height 5 ft 7 in Weight 204 lb 6 oz BMI 32.0 BP 116/78 Blood Pressure Location Lt brachial Position Sitting Pulse 52 Pulse Source Pulse Oximeter Temp 97.1 F Temp Source Temporal Artery Scan Pulse Oximetry (%) 97 Oxygen Delivery Method Room Air Intake Visit Reasons: DM, PVD Accompanied by: Daughter Allergies lisinopril Adverse Reaction (Intermediate, Verified 03/13/25 10:45) high creatinine Tobacco use date assessed: 03/13/25 Fall risk assessment: 2 + Falls in past year Last assessed Fall Risk: 03/13/25 Dental Screening Dental Screen Date: 03/13/25 Did you have a dental visit in the last 12 months?: No Did you have a dental problem in the last 6 months where you did not have access to dental care?: No Was dental information given to patient?: Patient has dentist [facility] Medical History Lymphadenoma Chronic deep vein thrombosis (DVT) Preop exam for internal medicine Diverticulosis DM2 (diabetes mellitus, type 2) Tubular adenoma of colon Right leg DVT COPD (chronic obstructive pulmonary disease) Romero's cyst of knee Exertional chest pain Constipation Rectal bleeding History of DVT (deep vein thrombosis) Hypercholesterolemia Anemia Obstructive sleep apnea Cognitive impairment Coronary artery disease History of renal calculi Polysubstance abuse Lumbar spondylosis Hypertension Current use of anticoagulant therapy Surgical History History of heart artery stent History of endoscopy (~2020) History of cystoscopy (~2001) History of lithotripsy (~2001) History of colonoscopy (~2020) History of cardiac cath (~06/2009) History of hand surgery Family History Father No problems noted. Mother Diabetes Hypertension Stroke Family/Other No problems noted. Family/Other Leukemia Other Mental health disorder Social History Household Members: None Housing: House Are you a primary critical care physician assistant to a significant other at home: No Do you presently have visiting nurse or other home services: Yes (daughter is pizza chef) Alcohol intake: never Patient Tobacco Use Status: Former Tobacco user Tobacco use type: Cigarette Years Smoked: 10 years e-Cigarette/Vaping Use: Never Used Second Hand Smoke Exposure: Yes Advance Directives Date on File: 10/13/21 service: No Current occupational status: retired Cognitive needs: No Hearing needs: No Vision needs: Yes Questionnaire PHQ-9 Over the last 2 weeks, how often have you been bothered by any of the following problems? 1. Little interest or pleasure in doing things: more than half the days 2. Feeling down, depressed, or hopeless: more than half the days 3. Trouble falling or staying asleep, or sleeping too much: more than half the days 4. Feeling tired or having little energy: more than half the days 5. Poor appetite or overeating: more than half the days 6. Feeling bad about yourself - or that you are a failure or have let yourself or your family down: more than half the days 7. Trouble concentrating on things, such as reading the newspaper or watching television: more than half the days 8. Moving or speaking so slowly that other people could have noticed. Or the opposite - being so fidgety or restless that you have been moving around a lot more than usual: more than half the days 9. Thoughts that you would be better off or of hurting yourself in some way: more than half the days Total score: 18 Depression Screening Interpretation: Positive Depression Screening Done: Yes Source: Developed by Drs. Maynor Colon, Viviana Jacobson, Dandy Garcia and colleagues, with an educational leonard from [employer]. Thrive Questionnaire Date Thrive assessed: 09/30/24 I am a: Parent/Caregiver What is your living situation today?: I have a steady place to live Within the past 12 months, did the food you bought not last and you didn't have the money to get more?: Never true Within the past 12 months, did you worry whether your food would run out before you got money to buy more?: Never true Do you have trouble paying for medicines?: I choose not to answer this question Do you have trouble getting transportation to medical appointments?: I choose not to answer this question Do you have trouble paying your heating and electricity bill?: I choose not to answer this question Do you have trouble taking care of your child, family member or friend?: I choose not to answer this question Do you have trouble with day-to-day activities such as bathing, preparing meals, shopping, managing finances, etc.?: I choose not to answer this question Are you currently unemployed and looking for a job?: I choose not to answer this question Are you interested in more education?: I choose not to answer this question Please select the resources that you would like help with: None Currently or been in a relationship where the following occur: I choose not to answer THRIVE Score: 0 AUDIT C Alcohol Use Questionnaire (AUDIT-C) 1. How often do you have a drink containing alcohol?: Never 3. How often do you have six or more drinks on one occasion?: Never Total Score: 0 GENA-7 AMB Questionnaire GENA-7 Date GENA - 7 assessed: 07/26/24 Feeling nervous, anxious, or on edge: 0 = Not at all Not being able to stop or control worryin = Not at all Worrying too much about different things: 0 = Not at all Trouble relaxin = Not at all Being so restless that it is hard to sit still: 0 = Not at all Becoming easily annoyed or irritable: 0 = Not at all Feeling afraid as if something awful might happen: 0 = Not at all Total GENA-7 score (0-4 normal; 5-9 mild; 10-14 moderate; 15-21 severe): 0 Source: Developed by Drs. Maynor Colon, Viviana Jacobson, Dandy Garcia and colleagues, with an educational leonard from [employer]. Physical exam (Primary Care) Vital Signs: Last Vital Signs Temp 97.1 F 03/13/25 10:42 Pulse 52 03/13/25 10:42 BP 116/78 03/13/25 10:42 Pulse Ox 97 03/13/25 10:42 Oxygen Delivery Method Room Air 03/13/25 10:42 BMI result Body Mass Index 32.0 Tobacco/Smoking Status: Tobacco use Status Tobacco use date assessed 03/13/25 03/13/25 10:46 Patient Tobacco Use Status Former Tobacco user 03/13/25 10:46 Tobacco use type Cigarette 03/13/25 10:46 e-Cigarette/Vaping Use Never Used 03/13/25 10:46 PHQ-9: PHQ-9 Score PHQ-9: Total score 18 03/13/25 11:24 Depression Screening Interpretation: Positive Thrive Assessment: Date of Thrive Assessment Date Thrive assessed 09/30/24 03/13/25 10:46 Currently or been in a relationship where the following occur: I choose not to answer Const General: alert; No acute distress Eyes Conjunctivae: conjunctivae normal Resp Auscultation: clear to auscultation bilaterally Cardio Rate: regular rate Rhythm: regular rhythm GI Inspection: Yes normal to inspection Extrem General: Yes normal to inspection and No edema Office Procedures Flu Questionnaire Does the patient have a severe egg allergy?: No Does the patient have severe life threatening allergies?: No Does the patient have a fever or illness today?: No Has the patient ever had Guillain-[place] Syndrome?: No Has the patient ever had any past reaction to a flu shot?: No Results AMB Hemoglobin A1c AMB Hemoglobin A1c 5.9 % Last Edit by Sena Miller CMA on 03/13/25 10:51 Immunizations Fluarix [id number] (PF) 45 mcg (15 mcg x 3)/0.5 mL IM syringe Performing Provider: Nevaeh Aquino MD [facility] Administered by: Sena Miller CMA on 03/13/25 10:52 Dose Route Admin Location Dispensed Lot Number Expiration Date [facility] School Coordinator 0.5 mL IM Left Deltoid 0.5 mL [id number] 12/02/25 [id number] [employer] VIS Given Date VIS Provided VIS Publication Date 03/13/25 Single Vaccine 24 Eligibility Eligibility Date Funding Source Not [facility] Eligible 03/13/25 Private Results Reviewed Results Reviewed: Laboratory Last Values Hgb A1c (Clinic) 5.9 % (4.0-6.0) 03/13/25 10:46 Coding Level of Care Code Est Pt Level 4 (27785) Complex EM visit Add On G2211 Diagnoses Type 2 diabetes mellitus with hyperglycemia E11.65 History of DVT (deep vein thrombosis) Z86.718 Hypercholesterolemia E78.00 Coronary artery disease involving [place] coronary artery of [place] heart without angina pectoris I25.10 Associated angina: without angina Coronary Disease-Associated Artery/Lesion type: [place] artery [place] vs. 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 Anemia in chronic kidney disease N18.9; D63.1 Moderate dementia with anxiety, unspecified dementia type F03.B4 Dementia behavioral or psychological symptom: with anxiety Dementia severity: moderate Dementia type: unspecified type Simple chronic bronchitis J41.0 COPD type: chronic bronchitis Chronic bronchitis type: simple Numbness of right hand R20.0 Assessment & Plan Assessment & Plan (1) Type 2 diabetes mellitus with hyperglycemia: Comment: March 2020 hemoglobin A1c of 6.6 [facility] Code(s): E11.65 - Type 2 diabetes mellitus with hyperglycemia Category: Medical Plan: Decrease the amount of carbohydrate intake, pasta, bread, rice and potatoes are all sugar and that is aside from all the sweet stuff, remember that fruits are good but they are Sweet also. Hemoglobin A1c goal of less than 7.0. Patient is controlled with diet (2) History of DVT (deep vein thrombosis): Comment: (Hx Right leg DVT 07/2009 and Right leg DVT 08/2021) Code(s): Z86.718 - Personal history of other venous thrombosis and embolism Category: Medical Plan: Continue with Xarelto continue to monitor renal function (3) Hypercholesterolemia: Code(s): E78.00 - Pure hypercholesterolemia, unspecified Category: Medical Plan: Avoid fried foods, chicken skin, eggs, butter margarine, pastries and meat. Be it pork or beef they have a lot of cholesterol LDL goal of less than 70 and triglyceride of less than 150 patient on rosuvastatin and Zetia (4) Coronary artery disease: Comment: [place] July 2009 cardiac catheterization June 2009 no obstructive Code(s): I25.10 - Atherosclerotic heart disease of [place] coronary artery without angina pectoris Category: Medical Qualifiers: Associated angina: without angina Coronary Disease-Associated Artery/Lesion type: [place] artery [place] vs. 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 - Malformation of urachus Category: Medical Plan: Under surveillance from Urology (7) Anemia in chronic kidney disease: Code(s): N18.9 - Chronic kidney disease, unspecified; D63.1 - Anemia in chronic kidney disease Category: Medical Plan: Continue to monitor (8) Dementia: Code(s): F03.90 - Unspecified dementia, unspecified severity, without behavioral disturbance, psychotic disturbance, mood disturbance, and anxiety Category: Medical Qualifiers: Dementia behavioral or psychological symptom: with anxiety Dementia severity: moderate Dementia type: unspecified type Qualified Code(s): F03.B4 - Unspecified dementia, moderate, with anxiety Plan: Supportive treatment (9) COPD (chronic obstructive pulmonary disease): Code(s): J44.9 - Chronic obstructive pulmonary disease, unspecified Category: Medical Qualifiers: COPD type: chronic bronchitis Chronic bronchitis type: simple Qualified Code(s): J41.0 - Simple chronic bronchitis Plan: Stable (10) Numbness of right hand: Code(s): R20.0 - Anesthesia of skin Category: Medical Plan: decline testing for now Plan History of Present Illness The patient is a 70-year-old male presenting for a follow-up visit to manage multiple chronic conditions. The patient has a history of obesity, with an 8-pound weight gain noted recently. He has a history of deep vein thrombosis and is currently on anticoagulation therapy with Xarelto. The patient has chronic obstructive pulmonary disease and reports difficulty tolerating CPAP therapy for obstructive sleep apnea. He is on rosuvastatin and Zetia for hypercholesterolemia, with a goal LDL of less than 100 mg/dL. The patient was diagnosed with a tubular adenoma of the colon, with the last colonoscopy performed in February 2022. He is scheduled for a gastroenterology follow-up in March. The patient has generalized anxiety disorder and dementia, with diabetes mellitus currently controlled with a hemoglobin A1c of 5.9%. He manages diabetes with diet and is advised to maintain an A1c goal of less than 7.0%. The patient has anemia of chronic disease, with stable renal function and elevated liver function tests noted as chronic. His last blood work was done in November 2024. The patient reports numbness in the hand, suspected to be carpal tunnel syndrome, and excessive sweating of the feet, with a concern for fungal infection. He is advised to use braces for the hand and antiperspirant for the feet. Health Maintenance - Colonoscopy: Last performed in February 2022, follow-up scheduled for March - Diabetes Management: Hemoglobin A1c goal of less than 7.0%, currently at 5.9% - Vaccinations: Flu shot and shingles vaccine administered Social History - Housing: Lives on the third floor, seeking a more affordable apartment due to high rent - Exercise: Limited physical activity noted, advised to increase movement Review of Systems - Neurological: Reports numbness in the hand, suspected carpal tunnel syndrome - Integumentary: Reports excessive sweating of the feet Physical Exam - Respiratory: Auscultation performed with instructions to breathe in and out Results - Labs: Hemoglobin A1c at 5.9%, stable renal function, elevated liver function tests noted as chronic - Labs: Last blood work performed in November 2024 Plan Patient was informed and verbally consented to the use of an ambient scribe for clinic note documentation during this visit. 1. Obesity The patient is advised to increase physical activity to manage weight gain, with a focus on regular movement and exercise. 2. Deep Vein Thrombosis (Dvt) The patient is to continue anticoagulation therapy with Xarelto and monitor renal function regularly. 3. Chronic Obstructive Pulmonary Disease (Copd) The patient is advised to continue current management and consider alternative therapies for obstructive sleep apnea due to intolerance to CPAP. 4. Hypercholesterolemia The patient is on rosuvastatin and Zetia, with a goal LDL of less than 100 mg/dL and triglycerides less than 150 mg/dL. 5. Obstructive Sleep Apnea The patient is unable to tolerate CPAP therapy and alternative management strategies should be considered. 6. Tubular Adenoma Of The Colon The patient is scheduled for a gastroenterology follow-up in March to monitor the condition. 7. Diabetes Mellitus The patient is managing diabetes with diet, maintaining a hemoglobin A1c of 5.9%, with a goal of less than 7.0%. 8. Anemia Of Chronic Disease The patient is to continue monitoring with regular blood work, noting stable renal function and chronic elevated liver function tests. 9. Generalized Anxiety Disorder The patient is to continue current management for anxiety and dementia, with regular follow-ups. 10. Dementia The patient is to continue current management for dementia and anxiety, with regular follow-ups. 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 Discussion Notes During the visit, we discussed the management of the patient's chronic conditions, including obesity, DVT, COPD, hypercholesterolemia, and diabetes mellitus. The patient was advised to increase physical activity and continue current medications, including Xarelto and rosuvastatin. We also reviewed the need for regular follow-ups with gastroenterology and urology, and the importance of maintaining a healthy lifestyle to manage his conditions. Patient Instructions - Increase physical activity and regular movement to manage weight. - Continue taking prescribed medications, including Xarelto and rosuvastatin. - Attend scheduled follow-up appointments with gastroenterology and urology. - Use braces for hand numbness and antiperspirant for foot sweating. Orders: Orders Comprehensive Met. Panel 3 Months E11. - Type 2 diabetes mellitus with hyperglycemia Free T4 (Free Thyroxine) 3 Months E11. - Type 2 diabetes mellitus with hyperglycemia Ferritin 3 Months E11. - Type 2 diabetes mellitus with hyperglycemia Reticulocyte Count 3 Months . - Type 2 diabetes mellitus with hyperglycemia IRON PROFILE 3 Months . - Type 2 diabetes mellitus with hyperglycemia Thyroid Stimulating Hormone 3 Months . - Type 2 diabetes mellitus with hyperglycemia Prostate Specific Antigen Scr 3 Months . - Type 2 diabetes mellitus with hyperglycemia Microalbumin, Random (w Creat) 3 Months . - Type 2 diabetes mellitus with hyperglycemia UA CC w/rflx Micro + Cult 3 Months . - Type 2 diabetes mellitus with hyperglycemia, R30.0 - Dysuria Creatinine Urine 3 Months E11. - Type 2 diabetes mellitus with hyperglycemia AMB Hemoglobin A1c Today Z13.9 - Encounter for screening, unspecified Influenza [id number] Immunization Today Z23 - Encounter for immunization Complete Blood Count Auto Diff 3 Months . - Type 2 diabetes mellitus with hyperglycemia Hemoglobin A1c 3 Months E11. - Type 2 diabetes mellitus with hyperglycemia Lipid Panel 3 Months E11. - Type 2 diabetes mellitus with hyperglycemia, E78.00 - Pure hypercholesterolemia, unspecified Vitamin B12 and Folate 3 Months E11. - Type 2 diabetes mellitus with hyperglycemia Referrals Podiatry Referral E11. - Type 2 diabetes mellitus with hyperglycemia Medications: New [diabetic shoes] As directed 1 ea 0RF .65 - Type 2 diabetes mellitus with hyperglycemia [diabetic shoes] As directed 1 ea 0RF .65 - Type 2 diabetes mellitus with hyperglycemia
[2025-03-13 10:42] VITALS: BP 116/78; PULSE 52; TEMP 36.2; O2SAT 97; BMI 32.0
== END 2025-03-13 11:35 | disposition home or self-care (01) ==
LOC: HO.HMCH 10:36
PROVIDERS: PCP Internal Medicine; Visit Provider Internal Medicine
DX: E11.65 Type 2 diabetes mellitus with hyperglycemia (principal); F03.B4 Unspecified dementia, moderate, with anxiety; J41.0 Simple chronic bronchitis; N18.9 Chronic kidney disease, unspecified; Z86.718 Personal history of other venous thrombosis and embolism; I25.10 Atherosclerotic heart disease of native coronary artery without angina pectoris; E78.00 Pure hypercholesterolemia, unspecified; D12.6 Benign neoplasm of colon, unspecified; Q64.4 Malformation of urachus; D63.1 Anemia in chronic kidney disease; R20.0 Anesthesia of skin; Z23 Encounter for immunization

== ENCOUNTER → 2025-03-13 10:35 | Outpatient (BNVA) | payer OTHER, SELFPAY | PROVIDERS: PCP Internal Medicine; Visit Provider Internal Medicine | DX: E11.51 Type 2 diabetes mellitus with diabetic peripheral angiopathy without gangrene (principal); E11.65 Type 2 diabetes mellitus with hyperglycemia; E11.22 Type 2 diabetes mellitus with diabetic chronic kidney disease; N18.9 Chronic kidney disease, unspecified; E78.00 Pure hypercholesterolemia, unspecified; I25.10 Atherosclerotic heart disease of native coronary artery without angina pectoris; D12.6 Benign neoplasm of colon, unspecified; Q64.4 Malformation of urachus; D63.1 Anemia in chronic kidney disease; F03.B4 Unspecified dementia, moderate, with anxiety; J41.0 Simple chronic bronchitis; R20.0 Anesthesia of skin; G47.33 Obstructive sleep apnea (adult) (pediatric); F41.1 Generalized anxiety disorder; F03.90 Unspecified dementia, unspecified severity, without behavioral disturbance, psychotic disturbance, mood disturbance, and anxiety; E66.9 Obesity, unspecified; Z23 Encounter for immunization; Z86.718 Personal history of other venous thrombosis and embolism; Z68.32 Body mass index [BMI] 32.0-32.9, adult | CPT/HCPCS: 83036; 90471; 90656; 96127; 99212 ==

== ENCOUNTER 2025-04-16 11:27 | Outpatient (AMB) | payer OTHER, SELFPAY ==
[2025-04-16 11:31] VITALS: BMI 32.0
--- NOTE | 2025-04-16 11:31 | MHC.OFFVIS ---
Vital Signs 04/16/25 11:31 Height 5 ft 7 in Weight 204 lb 6 oz BMI 32.0 Intake Visit Reasons: Type II Diabetes Intake Note: Francisco is a 70 year old male who presents today for type II diabetes. Patient reports he Has not had a finger stick in a while due to taking ozempic every monday. He reports his last known A1C was a 5.9%. He states he has numbing in his toes on bilateral feet, with no nausea or vomiting or dizziness. Allergies lisinopril Adverse Reaction (Intermediate, Verified 03/13/25 10:45) high creatinine HPI Comments Details: The patient is a 70-year-old male with a past medical history as seen below presenting for a diabetic foot exam with complaints of numbness and tingling. The patient reports tingling that extends up the legs, which is consistent with diabetic neuropathy. Patient also experiences changes to the coloration of the legs as well as varicose veins and swelling. Patient states he also is being seen by vascular specialist. Patient states he wears compression stockings sometimes. Patient states his A1c is 5.9. He denies any new pedal injuries. He denies any other pedal concerns. [facility] Medical History (Updated 04/19/25 @ 10:52 by Alysa Horner DPM) Tinea unguium Diabetic neuropathy Lymphadenoma Chronic deep vein thrombosis (DVT) Preop exam for internal medicine Diverticulosis DM2 (diabetes mellitus, type 2) Tubular adenoma of colon Right leg DVT COPD (chronic obstructive pulmonary disease) Romero's cyst of knee Exertional chest pain Constipation Rectal bleeding History of DVT (deep vein thrombosis) Hypercholesterolemia Anemia Obstructive sleep apnea Cognitive impairment Coronary artery disease History of renal calculi Polysubstance abuse Lumbar spondylosis Hypertension Current use of anticoagulant therapy Surgical History History of heart artery stent History of endoscopy (~2020) History of cystoscopy (~2001) History of lithotripsy (~2001) History of colonoscopy (~2020) History of cardiac cath (~06/2009) History of hand surgery Family History Father No problems noted. Mother Diabetes Hypertension Stroke Family/Other No problems noted. Family/Other Leukemia Other Mental health disorder Social History Household Members: None Housing: House Are you a primary outdoor emergency care technician to a significant other at home: No Do you presently have visiting nurse or other home services: Yes (daughter is hearing aid assistant) Alcohol intake: never Patient Tobacco Use Status: Former Tobacco user Tobacco use type: Cigarette Years Smoked: 10 years e-Cigarette/Vaping Use: Never Used Second Hand Smoke Exposure: Yes Advance Directives Date on File: 10/13/21 service: No Current occupational status: retired Cognitive needs: No Hearing needs: No Vision needs: Yes Review of Systems Const Details: - Neurological: Reports tingling in the legs, decreased sensation in the right foot, partial sensation in the left foot. - Vascular: Reports bilateral lower extremity swelling and varicosities. All systems reviewed & are unremarkable except as noted in HPI and below Physical Exam Vital Signs: BMI result Body Mass Index 32.0 Extrem Other: Bilateral lower extremity focused physical exam: Derm: No open lesions abrasions or wounds noted. Slight discoloration to the lower extremities noted. No ecchymosis noted. Skin supple and turgor within normal limits. No maceration noted. No clinical signs of infection noted. Toenails x10 noted to be slightly thickened and discolored. Vascular: DP pulses mildly palpable. PT pulses nonpalpable. Nonpitting edema noted to bilateral lower extremities. Temperature gradient warm to warm. Pedal hair diminished. Capillary refill time less than 3 seconds. Varicosities noted. Neuro: Protective sensation is grossly diminished to light touch and monofilament testing, worse of the right lower extremity. MSK: No pain on palpation to the forefoot, hindfoot, ankles. Range of motion of the forefoot, hindfoot, ankles within normal limits. No crepitus or fluctuance noted. Office Procedures Diabetic Foot Exam G9226 - Diabetic Foot Exam Results Reviewed Results Reviewed: Laboratory Tests 11/28/24 03/13/25 05:25 10:46 Random Glucose 94 Hgb A1c (Clinic) 5.9 AST 62 H ALT 50 H Assessment & Plan Assessment & Plan (1) Peripheral vascular disease: Code(s): I73.9 - Peripheral vascular disease, unspecified Category: Medical (2) Type 2 diabetes mellitus with hyperglycemia: Comment: March 2020 hemoglobin A1c of 6.6 [facility] Code(s): E11.65 - Type 2 diabetes mellitus with hyperglycemia Category: Medical (3) Varicose veins of both lower extremities with inflammation: Code(s): I83.11 - Varicose veins of right lower extremity with inflammation; I83.12 - Varicose veins of left lower extremity with inflammation Category: Medical (4) Tinea unguium: Code(s): B35.1 - Tinea unguium Category: Medical Plan Patient was informed and verbally consented to the use of an ambient scribe for clinic note documentation during this visit. Educated the patient on the effects of diabetes on the lower extremities. I discussed the importance of using diabetic shoes and inserts to prevent further complications from neuropathy. We reviewed the need to monitor for any new wounds or skin changes due to venous insufficiency. I advised scheduling a follow-up appointment in nine weeks for nail care and further evaluation. - prescribed diabetic shoes and inserts to prevent further neuropathic complications. - monitor the lower extremities daily and wear supportive shoe gear, and avoid barefoot walking. - Follow up with vascular specialist as needed for venous insufficiency management. - wear compression stockings. - continue diabetic management as per PCP. RTC in 9 weeks. Orders: Orders AMB Diabetic Foot Exam 04/16/25 E11.40 - Type 2 diabetes mellitus with diabetic neuropathy, unspecified, E11.65 - Type 2 diabetes mellitus with hyperglycemia, I73.9 - Peripheral vascular disease, unspecified, I83.11 - Varicose veins of right lower extremity with inflammation, I83.12 - Varicose veins of left lower extremity with inflammation Coding Level of Care Code New Pt Level 4 (43813) Diagnoses Peripheral vascular disease I73.9 Type 2 diabetes mellitus with hyperglycemia E11.65 Varicose veins of both lower extremities with inflammation I83.11; I83.12 Tinea unguium B35.1 CPT Codes Diabetic Foot Exam - CPT: G9226 - Diabetic Foot Exam ([id number]) Time Spent (min) 50
== END 2025-04-16 11:54 | disposition home or self-care (01) ==
LOC: HO.HPODS 11:27
PROVIDERS: PCP Internal Medicine; Visit Provider Student in an Organized Health Care Education/Training Program
DX: I73.9 Peripheral vascular disease, unspecified (principal); E11.65 Type 2 diabetes mellitus with hyperglycemia; I83.11 Varicose veins of right lower extremity with inflammation; I83.12 Varicose veins of left lower extremity with inflammation; B35.1 Tinea unguium
CPT/HCPCS: 99204; G9226

== ENCOUNTER → 2025-04-16 11:27 | Outpatient (BNVA) | payer OTHER, SELFPAY | PROVIDERS: PCP Internal Medicine; Visit Provider Student in an Organized Health Care Education/Training Program | DX: E11.65 Type 2 diabetes mellitus with hyperglycemia (principal); Z79.85 Long-term (current) use of injectable non-insulin antidiabetic drugs; I73.9 Peripheral vascular disease, unspecified; I83.11 Varicose veins of right lower extremity with inflammation; B35.1 Tinea unguium | CPT/HCPCS: 99202 ==

== ENCOUNTER 2025-04-28 07:53 | Day surgery (SDC) | payer OTHER, SELFPAY ==
--- NOTE | 2025-04-23 13:02 | P.CONAN_ITS ---
Documented by User: Spring Brown NP 04/24/25 09:01 HPI - Anesthesia Eval Consult details Narrative: 70yo M for Cystoscopy,Cystogram Xarelto for chronic DVT ? Hx NSTEMI 2009 - cath was nml without evidence of NSTEMI - Stable since. Last cardiac f/u 2022 with [facility] cardio and stable at that time COPD/ISH: Follows [facility] pulmo. Stable at yearly office visit 09/2024 Anesthesia Pre-Procedure Meds Is the patient on any of the following meds?: GLP1/DPP4 PMFSH Active Problems Active Problems: All Active Problems Tinea unguium (Acute) Diabetic neuropathy (Acute) Numbness of right hand (Acute) Insomnia (Acute) Urachal remnant (Acute) Acute UTI (Acute) Varicose veins of both lower extremities with inflammation (Acute) Lymphedema (Acute) Lymphadenoma (Acute) Chronic deep vein thrombosis (DVT) (Acute) Head trauma (Acute) Dizziness (Acute) Headache (Acute) Cellulitis of right leg (Acute) Venous stasis dermatitis (Acute) Ulcer of right leg (Acute) Diverticulosis (Acute) Anemia in chronic kidney disease (Acute) Peripheral vascular disease (Acute) Type 2 diabetes mellitus with hyperglycemia (Acute) Leg ulcer (Acute) SOB (shortness of breath) (Acute) Right leg pain (Acute) Osteoarthritis of right knee (Acute) Dementia (Acute) Knee pain, right (Acute) Tremor (Acute) Elevated LFTs (Acute) Encounter for Medicare annual wellness exam (Acute) Low back pain (Acute) Generalized anxiety disorder (Acute) Preop cardiovascular exam (Acute) Coronary artery disease (Acute) Current use of anticoagulant therapy (Acute) History of DVT (deep vein thrombosis) (Acute) Hypercholesterolemia (Acute) COPD (chronic obstructive pulmonary disease) (Acute) Obstructive sleep apnea (Acute) Tubular adenoma of colon (Acute) Past Medical History Medical History Tinea unguium Diabetic neuropathy Lymphadenoma Chronic deep vein thrombosis (DVT) Preop exam for internal medicine Diverticulosis DM2 (diabetes mellitus, type 2) Tubular adenoma of colon Right leg DVT COPD (chronic obstructive pulmonary disease) Romero's cyst of knee Exertional chest pain Constipation Rectal bleeding History of DVT (deep vein thrombosis) Hypercholesterolemia Anemia Obstructive sleep apnea Cognitive impairment Coronary artery disease History of renal calculi Polysubstance abuse Lumbar spondylosis Hypertension Current use of anticoagulant therapy Family History Family History Father No problems noted. Mother Diabetes Hypertension Stroke Family/Other No problems noted. Family/Other Leukemia Other Mental health disorder Family history of problems with anesthesia: No Surgical History Surgical History History of heart artery stent History of endoscopy (~2020) History of cystoscopy (~2001) History of lithotripsy (~2001) History of colonoscopy (~2020) History of cardiac cath (~06/2009) History of hand surgery History of Problems with Anesthesia: No Social History Social History Household Members: None Housing: House Are you a primary administrator health care facility to a significant other at home: No Do you presently have visiting nurse or other home services: Yes (daughter is airport ramp agent) Alcohol intake: never Patient Tobacco Use Status: Former Tobacco user Tobacco use type: Cigarette Years Smoked: 10 years e-Cigarette/Vaping Use: Never Used Second Hand Smoke Exposure: Yes Use of substances other than those prescribed or required for medical reasons: No Are you DNR?: No Advance Directives: Yes Advance Directives on File: Yes Advance Directives Date on File: 10/13/21 service: No Current occupational status: retired Cognitive needs: No Hearing needs: No Vision needs: Yes Meds Allergies Allergy/AdvReac Type Severity Reaction Status Date / Time lisinopril AdvReac Intermediate high Verified 04/28/25 08:17 creatinine Home Medications ?Medication ?Instructions ?Recorded ?Confirmed ?Last Taken ?Type walker (Ultra-Light Rollator misc) 09/30/24 04/28/25 11/26/24 History memantine 5 mg tablet 5 mg PO DAILY@169911/26/24 04/28/25 11/25/24 History rivaroxaban 20 mg tablet (Xarelto) 20 mg PO DAILY@169911/26/24 04/28/25 04/23/25 History rosuvastatin 40 mg tablet (Crestor) 40 mg PO BEDTIME 0 11/26/24 04/28/25 11/26/24 History Exam Pertinent Lab Results Pertinent Lab Results: Laboratory Tests 11/28/24 05:25 WBC 6.5 Hgb 10.2 L Hct 32.4 L Plt Count 254 Sodium 143 Potassium 4.2 Chloride 111 H Carbon Dioxide 25 BUN 15 Creatinine 0.97 Narrative Narrative: EKG 11/2024 Vent. Rate : 94 BPM Atrial Rate : 94 BPM P-R Int : 174 ms QRS Dur : 94 ms QT Int : 366 ms P-R-T Axes : 23 -21 0 degrees QTcB Int : 457 ms Normal sinus rhythm Normal ECG When compared with ECG of 26-Sep-2022 14:47, Vent. rate has increased by 59 bpm Venous Duplex 2024 IMPRESSION: 1. No acute deep venous thrombosis within the right lower extremity. 2. Similar appearance of chronic vascular web within the right popliteal vein consistent with prior deep venous thrombosis. Assessment and Plan Final Anesthetic Review Family History of Problems with Anesthesia: No History of Problems with Anesthesia: No Documented by User: Tucker Hawley MD 04/28/25 09:01 [facility] Past Medical History Medical History Tinea unguium Diabetic neuropathy Lymphadenoma Chronic deep vein thrombosis (DVT) Preop exam for internal medicine Diverticulosis DM2 (diabetes mellitus, type 2) Tubular adenoma of colon Right leg DVT COPD (chronic obstructive pulmonary disease) Romero's cyst of knee Exertional chest pain Constipation Rectal bleeding History of DVT (deep vein thrombosis) Hypercholesterolemia Anemia Obstructive sleep apnea Cognitive impairment Coronary artery disease History of renal calculi Polysubstance abuse Lumbar spondylosis Hypertension Current use of anticoagulant therapy Family History Family History Father No problems noted. Mother Diabetes Hypertension Stroke Family/Other No problems noted. Family/Other Leukemia Other Mental health disorder Surgical History Surgical History History of heart artery stent History of endoscopy (~2020) History of cystoscopy (~2001) History of lithotripsy (~2001) History of colonoscopy (~2020) History of cardiac cath (~06/2009) History of hand surgery Social History Social History Household Members: None Housing: House Are you a primary administrator health care facility to a significant other at home: No Do you presently have visiting nurse or other home services: Yes (daughter is airport ramp agent) Alcohol intake: never Patient Tobacco Use Status: Former Tobacco user Tobacco use type: Cigarette Years Smoked: 10 years e-Cigarette/Vaping Use: Never Used Second Hand Smoke Exposure: Yes Use of substances other than those prescribed or required for medical reasons: No Are you DNR?: No Advance Directives: Yes Advance Directives on File: Yes Advance Directives Date on File: 10/13/21 service: No Current occupational status: retired Cognitive needs: No Hearing needs: No Vision needs: Yes Meds Allergies Allergy/AdvReac Type Severity Reaction Status Date / Time lisinopril AdvReac Intermediate high Verified 04/28/25 08:17 creatinine Home Medications ?Medication ?Instructions ?Recorded ?Confirmed ?Last Taken ?Type walker (Ultra-Light Rollator misc) 09/30/24 04/28/25 11/26/24 History memantine 5 mg tablet 5 mg PO DAILY@1700 11/26/24 04/28/25 11/25/24 History rivaroxaban 20 mg tablet (Xarelto) 20 mg PO DAILY@1700 11/26/24 04/28/25 04/23/25 History rosuvastatin 40 mg tablet (Crestor) 40 mg PO BEDTIME 0 11/26/24 04/28/25 11/26/24 History Exam Airway Mallampati Class: III TM Dist: >3cm Neck ROM: Full Denture: Upper Loose/Missing/Broken Teeth: No Heart: RRR Lungs: CTA Assessment and Plan Final Anesthetic Review NPO: Yes ASA Class: III Final Preanesthetic Review: No Changes in Pt Med Stat, Meds/Allgs Chart Reviewed, Consent Obtained/Reviewed and Anes Risks/Benef Reviewed Patient Risk: Intermediate Procedure Risk: Low Anesthetic Plan Anesthetic Plan: MAC: Disposition: Standard PACU
[2025-04-24 15:36] VITALS: BMI 31.9
[2025-04-28] VITALS (11 sets, daily range): BP systolic 103–125; BP diastolic 51–69; PULSE 40–65; RESP 9–21; TEMP 36.1–36.7; O2SAT 93–100; BMI 31.0
--- NOTE | ~2025-04-28 | FL_ITS ---
EXAMINATION: FLUOROSCOPY GUIDANCE FOR NEEDLE PLACEMENT CLINICAL INFORMATION: CYSTOGRAM COMPARISON: Previous CT of the abdomen and pelvis November 2024 TECHNIQUE: Fluoroscopy intraoperative guidance provided for cystogram FINDINGS: Drawing Instructor image and 2 images from cystogram submitted. Air-filled filling defect at the base bladder likely representing balloon from Kenny catheter. Reflux in the right distal ureter and questionable reflux in the left distal ureter. FLUOROSCOPY TIME: 22 seconds DOSE AREA PRODUCT: 2305 uGy-m2 (microgray-meter squared) FL/FL guidance in OR IMPRESSION: Fluoroscopy guidance for cystogram. Electronically signed by: Nelly Bonilla MD 04/29/2025 08:46 AM [facility]
[2025-04-28 08:49] LABS: Glucose, Whole Blood 108 mg/dL (60-115)
--- NOTE | 2025-04-28 08:52 | MHC.SHP ---
Pre-Procedural Eval Section A - 24 Hr Update-Section A only Date of Service: 04/28/25 The patient is an INPATIENT: No Changes since office visit: No Cold of Flu in the past 2 weeks, No New Medical Problems, No Changes in Medication and No Patient answered all questions The patient has been examined within 24 hours of the surgical procedure. The History & Physical has been completed within 30 days and I have reviewed it.: Yes Section B - Complete if H&P > 30 days Chief Complaint: Malformation of urachus Details of Present Illness: Cystoscopy, cystogram Allergies: Allergies Allergy/AdvReac Type Severity Reaction Status Date / Time lisinopril AdvReac Intermediate high Verified 04/28/25 08:17 creatinine Plan I have reviewed the history and physical and performed a pertinent physical examination on my patient. No changes have occurred unless specified. Time Spent With Patient Time: Total time managing care of this patient today ____ minutes.
[2025-04-28] MEDS: Lactated Ringers 1,000 ML 100 ML IVCONT (08:53)
--- NOTE | 2025-04-28 09:33 | W.PM.OPN ---
Operative Note Operative Note Date of Service: 04/28/25 Narrative: PreOperative Diagnosis: Urachal remnant evaluation Post Operative Diagnosis: Uretero remnant evaluation Procedure: Cystoscopy, cystogram Surgeon: Dr Pop Phillips Anesthesia: Sedation Indications for procedure: Possible urachal remnant seen on CT scan Procedure: After informed consent was verified the patient was brought to the operating room and placed in a supine position. Anesthesia was administered per protocol. The patient was prepped and draped in a sterile fashion. Safety pause time-out was performed. Antibiotics being given. Cystoscopy performed. No clear evidence of urachal remnant. Cystogram performed. 420 cc. Smooth bladder outline, reflux seen up right ureter. No evidence of urachal communication. Tolerated procedure well Transferred in stable condition to recovery area Pathology: Drains:
--- NOTE | 2025-04-28 11:53 | PC.NURSE ---
PATIENT'S DAUGHTER WHO IS THE HEALTH CARE PROXY SIGNED ALL DISCHARGE PAPERS.
== END 2025-04-28 11:58 | disposition home or self-care (01) ==
PROVIDERS: PCP Internal Medicine; Visit Provider Urology
PROC: 0TJB8ZZ Inspection of Bladder, Via Natural or Artificial Opening Endoscopic (ICD-10-PCS; CPT 52000; principal; 2025-04-28 09:20)
DX: Q64.4 Malformation of urachus (principal); I10 Essential (primary) hypertension; E11.9 Type 2 diabetes mellitus without complications; G47.33 Obstructive sleep apnea (adult) (pediatric); E78.5 Hyperlipidemia, unspecified
CPT/HCPCS: 51600; 82947; J0131; J2003; J2250; J2704; Q9967

== ENCOUNTER → 2025-04-28 07:53 | Outpatient (BNV) | payer OTHER, SELFPAY | PROVIDERS: PCP Internal Medicine; Visit Provider Urology | DX: Q64.4 Malformation of urachus (principal) | CPT/HCPCS: 52000 ==